=== PATIENT | female | born 1935 | race Caucasian/White ===

== ENCOUNTER 2017-06-02 13:06 | Emergency (ER) | payer MEDICARE ==
--- NOTE | 2017-06-02 15:27 | RAD ---
LEFT HIP TWO VIEWS: History: Left leg and hip pain. Comparison: None. FINDINGS: No fracture. No malalignment. Soft tissues are unremarkable. Left obturator ring appears to be intact . IMPRESSION: No acute fracture or malalignment. POS: OFF
--- NOTE | 2017-06-02 15:28 | RAD ---
LEFT KNEE FOUR VIEWS: History: Left hip and groin pain. Comparison: None. FINDINGS: There is medial chondral calcinosis. Mild quadriceps tendinosis. Mild vascular calcifications. IMPRESSION: No acute fracture or malalignment. POS: OFF
--- NOTE | 2017-06-02 15:30 | RAD ---
AP PELVIS: History: Pain. Stumbled, did not fall. Comparison: None. FINDINGS: No displaced fracture or malalignment of the hips. Obturator rings are intact. Pubic symphysis is int act. SI joints show mild degenerative disease. IMPRESSION: No displaced fracture or malalignment of the pelvis. POS: OFF
== END 2017-06-02 15:42 | disposition home or self-care (01) ==
LOC: ERS 13:06
DX: M54.32 Sciatica, left side (principal); M25.552 Pain in left hip; R10.2 Pelvic and perineal pain; E11.9 Type 2 diabetes mellitus without complications; I10 Essential (primary) hypertension; Z79.4 Long term (current) use of insulin; Z79.899 Other long term (current) drug therapy; Z79.82 Long term (current) use of aspirin; Z79.01 Long term (current) use of anticoagulants
CPT/HCPCS: 72170

== ENCOUNTER 2017-06-16 12:40 | Outpatient (CLI) | payer MEDICARE ==
--- NOTE | 2017-06-16 15:02 | CT ---
LUMBAR SPINE CT NONCONTRAST: HISTORY: Lumbar radiculopathy. FINDINGS: Multilevel osteophytosis is present, most pronounced anteriorly at the L2-3 level. No compression fr acture. No significant subluxation. There is right convexity curvature of the lumbar spine. Within the imaged retroperitoneum, there is vascular calcification. There is mild nonspecific fat strandin g about the retroperitoneum which does surround the superior mesenteric and inferior mesenteric arter ies. Findings could relate to sequelae from vasculopathy/vasculitis. Incidental note of colonic div erticulosis. L5-S1: There is a calcified disk bulge and mild osteophyte ridge effacing ventral thecal sac. There is mild right osseous neural foraminal narrowing due to osteophyte complex. There is mild osseous n arrowing of the left neural foramen as a result of lateral osteophyte formation. L4-5: Broad-based disk-osteophyte complex is present with moderate central canal stenosis. There is mild right and moderate left neural foraminal stenosis. At the lateral, extraspinal, left extraforaminal zone of the L4-5 level, there is a large peripherall y calcified density measuring 1.4 cm in diameter which does emanate from the adjacent, degenerative L 4-5 disk space, laterally on the left. This abuts and displaces the exiting left L4 nerve root. Fin ding is most consistent with partially calcified lateral disk extrusion. L3-4: There is mild narrowing of the central canal on the basis of disk-osteophyte complex. No high -grade foraminal stenosis. L2-3: Mild disk-osteophyte complex and disk calcification present. No significant compromise of chloé tral canal or neural foramina. L1-2: There is no significant central canal or foraminal stenosis. There is multilevel mild bilateral facet degenerative hypertrophy. IMPRESSION: 1. Findings consistent with a large left extraforaminal zone disk extrusion at the L4-5 level with d irect impingement and mass effect/displacement of the exiting left L4 nerve root. 2. Multilevel degenerative change as outlined above. POS: JOAN
== END 2017-06-16 12:41 | disposition home or self-care (01) ==
LOC: CT 12:40
PROVIDERS: ATTEND Orthopaedic Surgery
DX: M47.26 Other spondylosis with radiculopathy, lumbar region (principal)
CPT/HCPCS: 72131

== ENCOUNTER 2017-06-17 10:16 | Inpatient (IN) | payer MEDICARE ==
[2017-06-17] MEDS ORDERED: Ondansetron HCl/PF 4 MG/2 ML Vial ONE (10:55)
[2017-06-17 11:09] LABS: #Lymphocytes 1.1 thou/uL (1.20-3.40); #Monocytes 0.5 thou/uL (0.11-0.59); #Neutrophils 10.4 thou/uL (1.40-6.50); %Basophils 0.2 % (0.0-1.0); %Eosinophils 0.3 % (0.0-10.0); %Lymphocytes 9.4 % (21.0-51.0); %Neutrophils 86.2 % (42.0-75.0); Hemoglobin 16.7 g/dL (12.0-16.0); Mean Corpuscular HGB CONC 32.7 g/dL (32.0-36.0); Mean Corpuscular Hemoglobin 30.9 pg (27.0-31.0); Mean Corpuscular Volume 94.4 fl (81.0-99.0); Platelet Count 257 thou/uL (130-400); RBC Distribution Width 12.9 % (11.5-14.5); Red Blood Cell (RBC) Count 5.41 mill/uL (4.20-5.40); White Blood Cell (WBC) Count 12.1 thou/uL (4.8-10.8)
[2017-06-17 11:14] LABS: INR-International Normal Ratio 1.2; PTT 31.2 SEC (22.9-36.1); Prothrombin Time 15.3 SEC (12.0-14.7)
[2017-06-17 12:29] LABS: ALT (SGPT) 29 U/L (8-55); AST (SGOT) 27 U/L (5-34); Albumin 4.2 g/dL (3.4-4.8); Alkaline Phosphatase 125 U/L (40-150); Anion Gap 18 mmol/L (10-20); BUN (Urea Nitrogen) 44 mg/dL (9.8-20.1); Bilirubin, Total 1.5 mg/dL (0.2-1.2); Calc. Creatinine Clearance 0 mL/min (70-130); Calcium 11.6 mg/dL (7.8-10.44); Carbon Dioxide 27 mmol/L (23-31); Chloride 89 mmol/L (98-107); Estimated GFR-MDRD 19; Globulin 4.5 g/dL (2.4-3.5); Protein, Total 8.7 g/dL (6.0-8.3); Sodium 127 mmol/L (136-145)
[2017-06-17 12:50] LABS: Potassium 6.6 mmol/L (3.5-5.1)
[2017-06-17 12:56] LABS: Glucose 834 mg/dL (83-110)
[2017-06-17] MEDS ORDERED: Insulin Regular 300 UNITS/3 ML VIAL ONE (13:56)
[2017-06-17] MEDS ORDERED: Calcium Chloride 1 GM/10 ML Abboject SYRINGE ONE (14:06)
[2017-06-17] MEDS ORDERED: HumaLOG 300 UNITS/3 ML VIAL SC PRN (14:27)
[2017-06-17] MEDS ORDERED: Zolpidem Tartrate 5 MG TAB PO PRN (14:27)
[2017-06-17] MEDS ORDERED: Ondansetron HCl/PF 4 MG/2 ML Vial IVP PRN (14:27)
[2017-06-17] MEDS ORDERED: Dextrose 50% Abboject 50 ML SYRINGE SLOW IVP PRN (14:27)
[2017-06-17] MEDS ORDERED: Acetaminophen 325 MG TAB PO PRN (14:27)
[2017-06-17] MEDS ORDERED: Morphine 4 MG/ML Carpuject SLOW IVP PRN (14:27)
[2017-06-17] MEDS ORDERED: Dextrose 5% in Water 1,000 ML IV PRN (14:27)
--- NOTE | 2017-06-17 15:32 | HP ---
PRIMARY CARE PROVIDER: Chato Scales M.D. Patient referred to the [facility] by [facility] for hyperkalemia . HISTORY OF PRESENT ILLNESS: The patient has had severe left flank pain radiating to her left leg. S he was seen in the emergency room a couple of weeks ago diagnosed with sciatica. She was referred to Orthopedic Surgery who said that the pain did not come from her hip joint. She had a CT of her LS s pine yesterday that revealed a large left foraminal disk protrusion at L5 level with direct impingeme nt and mass effect displacement on exiting L4 nerve root plus other changes. The patient presented i n the emergency room today. She has been unable to eat, unable to get up, unable to sit up because o f the pain. During routine evaluation, she was found to have acute on chronic renal failure with hyp erkalemia of 6.6. She is being admitted to the hospital. Diagnoses; atrial fibrillation, diabetes m ellitus type 2 with chronic kidney disease stage 3, coronary artery disease post-PCI 5-10 years ago, pacemaker, hypertension and chronic anticoagulation with Coumadin. CURRENT MEDICATIONS: Lantus 40 units in a.m. and 30 units in the evening, NovoLog 25 units subcu bef ore meals twice a day, amiodarone 200 mg a day, Plavix 75 mg a day, metoprolol 25 mg a day, aspirin 8 1 mg a day, Zocor 40 mg a day, warfarin 2.5 mg a day, prednisone 20 mg once a day, Vicodin 5/500 one half to one tablet every 6 hours p.r.n. pain. ALLERGIES: CIPRO, PENICILLIN, and SULFA. PAST SURGICAL HISTORY: Hysterectomy and bilateral cataract surgery. FAMILY HISTORY: Both parents had coronary artery disease. Her father had diabetes. She has 3 sibli ngs with diabetes and coronary artery disease. SOCIAL HISTORY: . CODE STATUS: FULL CODE status. Daughter, Arlin. Next of kin at bedside. No tobacco, no alcohol. REVIEW OF SYSTEMS: GENERAL: She fell 2 days ago from pain and 2 weeks ago, it is questionable wheth er she blacked out. She does not complain of any dizziness, no headaches. EYES: No double vision, blurred vision, flashing lights. EAR, NOSE, AND THROAT: No ear pain or drainage. No nasal bleeding . No trouble swallowing. CARDIAC: No chest pain, orthopnea or paroxysmal nocturnal dyspnea. RESPI RATORY: No cough, wheezing or asthma. GASTROINTESTINAL: No nausea, vomiting, abdominal pain, diarr hea or constipation. GENITOURINARY: Stress incontinence, no hematuria. MUSCULOSKELETAL: Aforement ioned pain radiating down her left leg from her left flank aggravated by motion. NEUROLOGIC: She crockett d a small stroke in the past by history with no residual. PSYCHIATRIC: No anxiety or depression. S KIN: Bruises easily on a combination of Coumadin, Plavix and aspirin. HEME/LYMPH: No tender or swo llen lymph nodes in axilla, inguinal or cervical area. PHYSICAL EXAMINATION: GENERAL: She is an alert, cooperative lady in moderate to severe pain despite the fact she has had 4 mg of morphine recently. HEENT: Examination of her head, eyes, ear, nose, and throat reveal pupils equal, round with implants . Extraocular movements are intact. Sclerae are white. Tympanic membranes are clear. Nose clear. Oral mucous membranes are exceedingly dry. She is edentulous. The daughter says she does have dent ures, not currently in her mouth. NECK: No jugular venous distention, adenopathy or thyromegaly. CHEST: Clear to auscultation and percussion. HEART: Regular rate and rhythm. First and second heart sounds are clear. There are no appreciated murmurs or gallops. ABDOMEN: Soft, bowel sounds are normal. There is no hepatosplenomegaly, no mass, no rebound. EXTREMITIES: Reveal no cyanosis, clubbing or edema. PULSES: Carotid, radial, femoral, and dorsalis pedis pulses intact and symmetric. HEME/LYMPH: No tender or swollen lymph nodes in axilla, inguinal or cervical area. NEUROLOGIC: Cranial nerves II-XII are intact. Deep tendon reflexes at the arm and at knees are inta ct and symmetric. Toes are downgoing. She has a positive straight leg raising test on the left. SKIN: Marked decreased turgor on her forehead with tenting that lasted over 60 seconds. IMAGING DATA: EKG sinus rhythm, left anterior fascicular block, right bundle branch block with sugge stion of early peaked T waves, reviewed by me. Chest x-ray has been done. LABORATORY DATA: CBC: White count 12.1, hemoglobin 16.7, platelet count 257,000. INR 1.2. [employer] [employer]ge flaquito: Sodium 127. It was 139 on 05/11/2017; potassium 6.6, it was 4.3 on 05/11/2017; creatinine 2.3 9, it was 151 on 05/11/2017; BUN 44, it was 26 on 05/11/2017; bilirubin is elevated at 1.5, but other liver function tests are normal. Calcium was 11.6, hemoglobin A1c was 7.3 on 05/11/2017. Her blood sugar today is listed at 834. ADMITTING DIAGNOSES: 1. Hyperkalemia. 2. Acute on chronic renal failure. 3. Dehydration. 4. Diabetes mellitus, insulin-dependent with markedly elevated blood sugar. 5. Atrial fibrillation, paroxysmal. 6. Hypertension. 7. Coronary artery disease post-PCI in the past. 8. Anticoagulation, currently inadequately anticoagulated. 9. Lumbar radiculopathy with intractable pain. PLAN: 1. IV fluids at 125 normal saline. 2. Kayexalate 30 grams p.o. has been given. 3. Basic metabolic profile will be repeated in 4 hours. 4. Morphine sulfate 4 mg q.3 hours for pain. 5. Consult Dr. Crews whom she has an appointment with for lumbar radiculopathy. 6. Selected home medicines. 7. Patient will need frequent follow up basic metabolic profile, one will be ordered for tomorrow mo rning. 8. Her herbarium worker, Dr. Humphrey Perez will be consulted.
[2017-06-17 17:23] LABS: Anion Gap 19 mmol/L (10-20); BUN (Urea Nitrogen) 45 mg/dL (9.8-20.1); Calc. Creatinine Clearance 0 mL/min (70-130); Carbon Dioxide 26 mmol/L (23-31); Chloride 92 mmol/L (98-107); Estimated GFR-MDRD 19; Potassium 5.5 mmol/L (3.5-5.1); Sodium 131 mmol/L (136-145)
[2017-06-17 17:28] LABS: Calcium 12.9 mg/dL (7.8-10.44); Glucose 776 mg/dL (83-110)
[2017-06-17] MEDS: HumaLOG 300 UNITS/3 ML VIAL SC PRN ×3 (17:55→23:33)
[2017-06-17] MEDS: Morphine 5 MG/ML SYRINGE SLOW IVP PRN (19:57)
[2017-06-17 21:20] LABS: Glucose Accucheck Confirmation 728 mg/dl (83-110)
[2017-06-17] MEDS: Sodium Chloride 0.9% 1,000 ML IV SCH (23:29)
[2017-06-18] MEDS: HumaLOG 300 UNITS/3 ML VIAL SC PRN ×3 (03:34→12:43)
[2017-06-18] MEDS: Morphine 5 MG/ML SYRINGE SLOW IVP PRN ×2 (04:38→09:30)
[2017-06-18 05:15] LABS: Hemoglobin 14.6 g/dL (12.0-16.0); Mean Corpuscular HGB CONC 33.8 g/dL (32.0-36.0); Mean Corpuscular Hemoglobin 31.3 pg (27.0-31.0); Mean Corpuscular Volume 92.8 fl (81.0-99.0); Mean Platelet Volume 7.4 fL (7.4-10.4); Platelet Count 216 thou/uL (130-400); RBC Distribution Width 12.6 % (11.5-14.5); Red Blood Cell (RBC) Count 4.65 mill/uL (4.20-5.40); White Blood Cell (WBC) Count 13.6 thou/uL (4.8-10.8)
[2017-06-18 05:16] LABS: Band 6 % (5-11); Eosinophils 1 % (0-10); Lymphocytes 11 % (21-51); MDiff Complete? YES; Monocytes 1 % (0-10); Neutrophil 81 % (42-75); PLT Morphology Comment Appears Adequate
[2017-06-18] MEDS: Sodium Chloride 0.9% 1,000 ML IV SCH ×4 (05:59→22:39)
[2017-06-18 08:22] LABS: Base Excess-Venous 3.7 mmol/L (-30.0-30.0); Bicarbonate (HCO3v) 29.7 mmol/L (1.0-85.0); CO2 Tension (PvCO2) 47.6 mmHg (41.0-51.0); Calcium, Ionized 1.04 mmol/L (1.12-1.32); Hemoglobin - Calc 18.8 g/dL (12.0-18.0); O2 Tension (PvO2) 32.6 mmHg (35.0-45.0); T. Carbon Dioxide 31.2 mmol/L (1.0-85.0); pH (Venous) 7.403 (7.35-7.45); vO2 Saturation-calc 62.2 % (0.0-100.0)
[2017-06-18 08:27] LABS: Potassium Greater than 6.5 mmol/L (3.4-4.7)
[2017-06-18] MEDS ORDERED: INSULIN ASPART 25 UNIT SC SCH (09:00)
[2017-06-18] MEDS: INSULIN DETEMIR SC SCH (09:11)
[2017-06-18] MEDS: ADMIXTURE FEE SC SCH (09:11)
[2017-06-18] MEDS: Amiodarone 200 MG TAB PO SCH (09:29)
[2017-06-18] MEDS: Levothyroxine Sodium 25 MCG TAB PO SCH (09:30)
[2017-06-18] MEDS: Metoprolol Tartrate 25 MG TAB PO SCH (09:30)
[2017-06-18] MEDS: Calcium/Multivitamins W-Iron 1 TAB TAB PO SCH (09:30)
[2017-06-18] MEDS: Clopidogrel Bisulfate 75 MG TAB PO SCH (09:30)
[2017-06-18] MEDS: Warfarin Sodium 2.5 MG TAB PO SCH (09:46)
--- NOTE | 2017-06-18 10:04 | PDOC.PN ---
- Subjective Encounter Start Date: 06/18/17 Encounter Start Time: 08:10 crying during exam complaining of left lowerr back complaining immediately after waking her up. Was sleeping peacefully prior to waking her up. After leaving the room and coming back 5min later, patient was resting with her eyes close in no distress - Objective Vital Signs & Weight: Vital Signs (12 hours) Temp Pulse Resp BP BP Pulse Ox 06/18/17 08:00 97.9 F 103 H 18 166/95 H 95 06/18/17 07:58 97.0 F L 76 16 06/18/17 04:48 97.0 F L 76 16 125/49 L 95 06/18/17 00:10 98.0 F 80 20 138/98 H 96 Weight Weight 144 lb 4.8 oz I&O: 06/17/17 06/18/17 06/19/17 06:59 06:59 06:59 Intake Total 1888 Output Total 150 Balance 1738 Result Diagrams: 06/18/17 04:36 06/18/17 04:36 Additional Labs: Accuchecks 06/18/17 06/18/17 06/17/17 07:56 03:33 23:33 POC Glucose 274 H 213 H 508 H 06/17/17 06/17/17 06/17/17 20:42 16:57 16:55 POC Glucose Greater than 550 H* Greater than 550 H* Greater than 550 H* Phys Exam - Physical Examination mild to moderate distress when awake but no distress when eyes closed HEENT: PERRLA Neck: no nodes, no JVD, supple Respiratory: no wheezing, clear to auscultation bilateral Cardiovascular: irregular tachy Gastrointestinal: soft, non-tender Musculoskeletal: no edema, pulses present Deviation from normal: abnormal skin turgor Dx/Plan (1) Acute kidney failure Status: Acute (2) Hyperkalemia Code(s): E87.5 - HYPERKALEMIA Status: Acute (3) Atrial fibrillation Code(s): I48.91 - UNSPECIFIED ATRIAL FIBRILLATION Status: Acute (4) Diabetes Code(s): E11.9 - TYPE 2 DIABETES MELLITUS WITHOUT COMPLICATIONS Status: Acute (5) Dehydration Code(s): E86.0 - DEHYDRATION Status: Acute (6) Hyponatremia with extracellular fluid depletion Code(s): E87.1 - HYPO-OSMOLALITY AND HYPONATREMIA Status: Acute - Plan cont current plan of care * . continue IVF monitor K level in am monitor creatnine levels in am pending consultation from pending consult from nephro restarted home meds including metoprolol and blood thinners monitor sugars closely- better though
[2017-06-18 10:28] LABS: Bilirubin Negative (Negative); Blood, Urine Negative (Negative); Clarity CLEAR (Clear); Glucose, Urine (Dipstick) >=1000 mg/dL (Negative); Leukocyte Negative (Negative); Nitrite Negative (Negative); Protein, Urine (Dipstick) Trace mg/dL (Neg-Trace); Specific Gravity, Urine 1.025 (1.002-1.036); pH, Urine 5.5 (5.0-9.0)
[2017-06-18] MEDS: Cyclobenzaprine 10 MG TAB PO PRN ×2 (12:35→20:40)
[2017-06-18] MEDS: traMADol HCl 50 MG TAB PO PRN ×2 (12:35→18:34)
[2017-06-18 13:01] LABS: Potassium 4.2 mmol/L (3.5-5.1); Sodium 144 mmol/L (136-145)
[2017-06-18 13:02] LABS: Anion Gap 12 mmol/L (10-20); Carbon Dioxide 30 mmol/L (23-31); Chloride 106 mmol/L (98-107)
[2017-06-18 13:03] LABS: BUN (Urea Nitrogen) 48 mg/dL (9.8-20.1); Calc. Creatinine Clearance 25 mL/min (70-130)
[2017-06-18 13:04] LABS: Estimated GFR-MDRD 26
[2017-06-18 13:05] LABS: Glucose 275 mg/dL (83-110)
[2017-06-18 13:06] LABS: Calcium 11.2 mg/dL (7.8-10.44)
[2017-06-18] MEDS: Atorvastatin Calcium 20 MG TAB PO SCH (20:40)
[2017-06-18] MEDS ORDERED: HumaLOG 300 UNITS/3 ML VIAL SC SCH (21:00)
[2017-06-18] MEDS ORDERED: Simvastatin 40 MG TAB PO SCH (21:00)
--- NOTE | 2017-06-19 00:07 | CON ---
DATE OF CONSULTATION: 06/18/2017 HISTORY OF PRESENT ILLNESS: Ms. Bills is an 82-year-old female, who presents to [facility] [place] [facility] for low back pain, left leg pain, and hyperkalemia. She has severe left flank pain ra diating to the left leg for the past 3 weeks. Within the past week, the pain has gotten severe to th e point where her walking is limited due to pain. She saw Dr. Pereira, an orthopedic surgeon, at took images of the hip and knees. He had referred to Neurosurgery, and she currently has an appointment to see Dr. Crews on 06/23/2017. She is unable to ambulate at home, because of the pain, so her daug hter brought her to the emergency department for intractable low back pain and left leg pain. CT of the lumbar spine shows a large far lateral left foraminal disk protrusion at the L5 level with direct impingement of mass effect displacing the left L4 nerve root. The patient on exam seems to be mildl y demented, which is not her usual state of mind per her daughter. She was admitted to the hospital with atrial fibrillation; diabetes mellitus, type 2; chronic kidney disease, stage 3, coronary artery disease, post-PCI 5-10 years ago, pacemaker, hypertension, chronic anticoagulation with Coumadin and baby aspirin. Neurosurgery was consulted for the findings, because of the findings on CT scan. Her appetite has decreased greatly in the past week, because of pain, and she is not able to do her acti vities of daily living. CURRENT MEDICATIONS: 1. Lantus 40 mg in a.m. and 30 units in the evening. 2. NovoLog 25 units subcu before meals twice a day. 3. Amiodarone 200 mg a day. 5. Plavix 75 mg a day. 6. Metoprolol 25 mg a day. 7. Aspirin 81 mg a day. 8. Zocor 40 mg a day. 9. Warfarin 2.5 mg a day. 10. Prednisone 20 mg a day. 11. Vicodin 5-500 one half to one tablet q.6 hours p.r.n. for pain. ALLERGIES: CIPRO, PENICILLIN, SULFA. PAST SURGICAL HISTORY: Hysterectomy, bilateral cataract surgery. FAMILY HISTORY: Patient's parents had coronary artery disease. Father has diabetes. She has 3 sibl ings with diabetes and coronary artery disease. SOCIAL HISTORY: The patient is . CODE STATUS: Full. Daughter is, Arlin, next of kin at bedside, who works at [employer]. She has no tobacco or alcohol history. REVIEW OF SYSTEMS: The patient fell 2 days ago from pain and 2 weeks ago from the pain. She complai ns of dizziness. No headaches. Neurologically, she seems to be intact; however, her memory is quite foggy and she seems mildly demented on exam. Patient reports left leg pain and low back pain. All other review of systems is negative, unless stated in the above HPI. PHYSICAL EXAMINATION: CURRENT VITAL SIGNS: Temperature of 98.2, pulse 102, respirations 20, O2 sats 93% on room air, blood pressure is 119/67. HEENT: Normocephalic, atraumatic. Hearing intact. Moist mucous membranes. Trachea is midline. EYES: Pupils are equal and reactive to light. Extraocular muscles are intact. Sclerae is white, no nicteric. NECK: The patient has normal range of motion. No midline tenderness to the cervical spine. CARDIOVASCULAR: Patient has regular rate and rhythm. First and second heart sounds are clear. The patient has a pacemaker. EXTREMITIES: Patient has no cyanosis or clubbing in the upper or lower extremities bilaterally. Her strength sensation seems to be intact in the upper and lower extremities bilaterally. Her gait is l imited due to pain in the lower extremities. She has paresthesias in the left L4 dermatome on exam. PULSES: Carotid, radial, femoral, and dorsal pedis pulses are intact and symmetric. NEUROLOGIC: Cranial nerves II-XII are grossly intact. Her speech is fluent. She answers my questio ns hesitantly and seems somewhat mildly demented. IMAGING: CT of the lumbar spine at [facility] [employer]. ADMITTING DIAGNOSIS: Hyperkalemia; acute on chronic renal failure; dehydration; diabetes mellitus, i nsulin dependent and marked elevated blood sugar; atrial fibrillation; hypertension; coronary artery disease, post-PCI in the past; anticoagulation with Coumadin, warfarin, and aspirin; and lumbar radic ulopathy with intractable back pain. PLAN: I have reviewed the images with Dr. Land the CT of the lumbar spine. She has a left far lateral disk protrusion at L4-L5, which impinges the left L4 nerve root. At this time, we will not o ffer surgery until she is off of Coumadin, aspirin, and warfarin for at least 1 week. This puts her at higher risk of hematoma postoperatively. We will also consult Dr. Leal or Dr. Hall to see if they have anything to offer to help with her pain while she is in the hospital to make it to her appointment with Dr. Crews. If there are any further questions, please feel free to contact [facility] rosurgery.
[2017-06-19] MEDS ORDERED: HumaLOG 300 UNITS/3 ML VIAL SC PRN (01:02)
[2017-06-19] MEDS: traMADol HCl 50 MG TAB PO PRN ×3 (01:05→15:13)
[2017-06-19 04:57] LABS: #Eosinphils 0.1 thou/uL (0.0-0.7); #Lymphocytes 1.7 thou/uL (1.20-3.40); #Monocytes 0.5 thou/uL (0.11-0.59); #Neutrophils 6.2 thou/uL (1.40-6.50); %Basophils 0.4 % (0.0-1.0); %Eosinophils 1.1 % (0.0-10.0); %Lymphocytes 19.4 % (21.0-51.0); %Monocytes 6.1 % (0.0-10.0); Hemoglobin 13.9 g/dL (12.0-16.0); Mean Corpuscular HGB CONC 33.1 g/dL (32.0-36.0); Mean Corpuscular Hemoglobin 31.2 pg (27.0-31.0); Mean Corpuscular Volume 94.1 fl (81.0-99.0); Mean Platelet Volume 7.4 fL (7.4-10.4); Platelet Count 175 thou/uL (130-400); RBC Distribution Width 12.6 % (11.5-14.5); Red Blood Cell (RBC) Count 4.46 mill/uL (4.20-5.40); White Blood Cell (WBC) Count 8.5 thou/uL (4.8-10.8)
[2017-06-19] MEDS: Sodium Chloride 0.9% 1,000 ML IV SCH ×4 (05:06→22:44)
[2017-06-19 05:08] LABS: Anion Gap 11 mmol/L (10-20); BUN (Urea Nitrogen) 36 mg/dL (9.8-20.1); Calc. Creatinine Clearance 32 mL/min (70-130); Calcium 10.1 mg/dL (7.8-10.44); Carbon Dioxide 28 mmol/L (23-31); Chloride 105 mmol/L (98-107); Estimated GFR-MDRD 36; Glucose 267 mg/dL (83-110); Potassium 3.7 mmol/L (3.5-5.1); Sodium 140 mmol/L (136-145)
--- NOTE | 2017-06-19 07:44 | PRG ---
DATE OF SERVICE: 06/19/2017 SUBJECTIVE: Ms. Bills is an 82-year-old female, who I saw in her room this morning. She continues to have pain in the left leg. This morning, she has some delerium, likely related to narcotic pain medication with poor renal function. her daughter is answering questions for her at bedside. She has no new neurologic deficits on exam. She is unable to walk and ambulation is limited due to pain. I think she would benefit from stay at a correction facility and from the Physical Therapy Department. I also consulted Dr. Leal to see if the Pain Management team could give some relief to her during her stay here at the hospital in order to get to her appointment with Dr. Crews on 06/23/2017. In the meantime, we will continue to control pain and she is on Coumadin, warfarin and aspirin. She will need to be off of those for 7 days before any surgery would be considered. Vital signs overnight have been stable. If there are any further questions, please feel free to contact Neurosurgery. CORNELIA
--- NOTE | 2017-06-19 08:24 | PRG ---
DATE OF SERVICE: 06/19/2017 SUBJECTIVE: I saw Ms. Bills in her hospital room this morning. Her daughters were in her room with her. I reviewed the history with them, reviewed imaging and I agree with documentation of Miko kearns PA-C dated 06/18/2017. Briefly, Tawanna Bills is an 82-year-old woman. 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. She was doing relatively well until a week or two ago. S he began having some severe pain radiating down the left leg that progressed to weakness. She had on e fall. She was brought to our emergency department and CT examination of the lumbar spine showed a far lateral disk herniation at L3-L4 stretching the L4 nerve root on the left. She has a pacemaker; therefore, MR imaging was impossible. Ms. Bills is on Coumadin for atrial fibrillation and 81 mg of aspirin. Her last Coumadin dose was . This morning, Ms. Bills has some delirium from the analgesics, required to control her pa in. Usually, she is quite alert and conversant and takes care of herself, but since the pain medicin es have started she has been dependent. She has L4 radiculopathy including quadriceps weakness. I have recommended a microdiskectomy from far lateral approach at L4-L5 on the left side. INFORMED CONSENT: I discussed indications, risks, benefits, and alternatives as well as expected out comes from surgery. The risks, we discussed included, but were not limited to bleeding, infection, C SF leak, nerve damage, paralysis, incontinence, wheelchair dependence, cardiopulmonary complications of anesthesia, major blood vessel injury and . Her daughter has expressed understanding and wan ts to proceed. I would like to schedule surgery 1 week after the last dose of Coumadin. She is on 81 mg of aspirin and I prefer being off that for a week, but does not an absolute requirement in this case. Coumadin was yesterday, we can schedule the surgery for next Wednesday or the following Wednesday. We will try to m kayla arrangements to the office, but see if that can happen.
[2017-06-19] MEDS: INSULIN DETEMIR SC SCH (09:28)
[2017-06-19] MEDS: ADMIXTURE FEE SC SCH (09:28)
[2017-06-19] MEDS: Warfarin Sodium 2.5 MG TAB PO SCH (09:29)
[2017-06-19] MEDS: Amiodarone 200 MG TAB PO SCH (09:29)
[2017-06-19] MEDS: Metoprolol Tartrate 25 MG TAB PO SCH (09:29)
[2017-06-19] MEDS: Levothyroxine Sodium 25 MCG TAB PO SCH (09:29)
[2017-06-19] MEDS: Calcium/Multivitamins W-Iron 1 TAB TAB PO SCH (09:29)
[2017-06-19] MEDS: Clopidogrel Bisulfate 75 MG TAB PO SCH (09:29)
--- NOTE | 2017-06-19 09:43 | PDOC.PN ---
- Subjective Encounter Start Date: 06/19/17 Encounter Start Time: 08:10 pateint states she feels fine. Daughter states she is much better today then she was yesterday - Objective Vital Signs & Weight: Vital Signs (12 hours) Temp Pulse Resp BP BP Pulse Ox 06/19/17 07:23 98.5 F 97 20 112/67 93 L 06/19/17 04:16 98.2 F 99 18 109/58 L 16 L 06/19/17 00:15 98.2 F 101 H 18 119/57 L 98 Weight Admit Weight 144 lb 4.8 oz Weight 144 lb I&O: 06/18/17 06/19/17 06/20/17 06:59 06:59 06:59 Intake Total 1888 4219 Output Total 150 525 Balance 1738 3694 Result Diagrams: 06/19/17 04:14 06/19/17 04:14 Additional Labs: Accuchecks 06/19/17 06/19/17 06/19/17 03:52 00:37 00:23 POC Glucose 236 H 298 H 52 L* 06/18/17 06/18/17 06/18/17 19:53 16:12 12:02 POC Glucose 90 126 H 343 H Phys Exam - Physical Examination Constitutional: NAD HEENT: PERRLA, sclera anicteric Neck: no nodes, no JVD Respiratory: no wheezing, clear to auscultation bilateral Cardiovascular: no significant murmur, no rub Gastrointestinal: soft, non-tender, no distention Musculoskeletal: no edema, pulses present Psychiatric: normal affect Dx/Plan (1) Acute kidney failure Status: Acute (2) Hyperkalemia Code(s): E87.5 - HYPERKALEMIA Status: Acute (3) Atrial fibrillation Code(s): I48.91 - UNSPECIFIED ATRIAL FIBRILLATION Status: Acute (4) Diabetes Code(s): E11.9 - TYPE 2 DIABETES MELLITUS WITHOUT COMPLICATIONS Status: Acute (5) Dehydration Code(s): E86.0 - DEHYDRATION Status: Acute (6) Hyponatremia with extracellular fluid depletion Code(s): E87.1 - HYPO-OSMOLALITY AND HYPONATREMIA Status: Acute - Plan cont current plan of care, plan discussed w/ family, PT/OT, social problems specialist * . PT eval and treat CM consult for SNF To hold coumadin for one week prior to surgery will hold off on holding coumadin until day has been scheduled to risk keeping her off longer than she needs to in the setting of atrial fibrillation continue current DM regimen
[2017-06-19] MEDS: Insulin Regular 300 UNITS/3 ML VIAL SC SCH ×3 (12:22→18:33)
[2017-06-19] MEDS: HumaLOG 300 UNITS/3 ML VIAL SC PRN ×2 (12:24→17:58)
[2017-06-19 13:42] LABS: INR-International Normal Ratio 1.2; PTT 28.3 SEC (22.9-36.1); Prothrombin Time 15.5 SEC (12.0-14.7)
[2017-06-19 14:06] LABS: CKMB 2.8 ng/mL (0-6.6); Troponin I 0.051 ng/mL (< 0.028)
--- NOTE | 2017-06-19 15:21 | CT ---
CT BRAIN WITHOUT CONTRAST: Date: 06/19/17 HISTORY: Altered mental status, stroke alert. FINDINGS: Comparison made with exam of 06/10/15. Old lacunar infarcts in the bilateral cerebral hemispheres and right cerebellar hemisphere are stable . Ventricular size is stable and basilar cisterns are patent. No evidence of acute infarct, hemorrhag e, midline shift, or abnormal extra-axial fluid collections seen. The bony calvarium is intact. The v isualized paranasal sinuses are well aerated. IMPRESSION: No CT evidence of acute intracranial process. Results called over the telephone to Dr. Gabino Hernández at 1341 hours. CODE CR. POS: [facility]
[2017-06-19] MEDS ORDERED: Warfarin Sodium 2.5 MG TAB PO SCH (17:00)
[2017-06-19] MEDS ORDERED: Warfarin Sodium 3 MG TAB PO SCH (17:00)
[2017-06-19] MEDS: Atorvastatin Calcium 20 MG TAB PO SCH (21:02)
[2017-06-20] MEDS: traMADol HCl 50 MG TAB PO PRN ×3 (02:52→21:44)
[2017-06-20 05:06] LABS: #Eosinphils 0.2 thou/uL (0.0-0.7); #Lymphocytes 1.7 thou/uL (1.20-3.40); #Monocytes 0.5 thou/uL (0.11-0.59); #Neutrophils 4.8 thou/uL (1.40-6.50); %Basophils 0.5 % (0.0-1.0); %Eosinophils 2.8 % (0.0-10.0); %Lymphocytes 24.1 % (21.0-51.0); %Monocytes 6.6 % (0.0-10.0); %Neutrophils 66.1 % (42.0-75.0); Hemoglobin 12.8 g/dL (12.0-16.0); Mean Corpuscular HGB CONC 32.8 g/dL (32.0-36.0); Mean Corpuscular Hemoglobin 31.2 pg (27.0-31.0); Mean Corpuscular Volume 95.1 fl (81.0-99.0); Mean Platelet Volume 7.3 fL (7.4-10.4); Platelet Count 154 thou/uL (130-400); RBC Distribution Width 12.7 % (11.5-14.5); White Blood Cell (WBC) Count 7.2 thou/uL (4.8-10.8)
[2017-06-20 05:07] LABS: INR-International Normal Ratio 1.2; Prothrombin Time 15.9 SEC (12.0-14.7)
[2017-06-20 05:16] LABS: Anion Gap 6 mmol/L (10-20); BUN (Urea Nitrogen) 31 mg/dL (9.8-20.1); Calc. Creatinine Clearance 38 mL/min (70-130); Calcium 9.6 mg/dL (7.8-10.44); Carbon Dioxide 29 mmol/L (23-31); Chloride 110 mmol/L (98-107); Estimated GFR-MDRD 43; Glucose 101 mg/dL (83-110); Potassium 3.7 mmol/L (3.5-5.1); Sodium 141 mmol/L (136-145)
[2017-06-20] MEDS: Sodium Chloride 0.9% 1,000 ML IV SCH ×3 (06:43→21:45)
[2017-06-20] MEDS: Levothyroxine Sodium 25 MCG TAB PO SCH (07:30)
[2017-06-20] MEDS: Cyclobenzaprine 10 MG TAB PO PRN (07:31)
[2017-06-20] MEDS: Calcium/Multivitamins W-Iron 1 TAB TAB PO SCH (08:39)
[2017-06-20] MEDS: Metoprolol Tartrate 25 MG TAB PO SCH (08:39)
[2017-06-20] MEDS: Amiodarone 200 MG TAB PO SCH (08:40)
[2017-06-20] MEDS: Docusate 100 MG CAP PO SCH ×2 (10:09→21:45)
[2017-06-20] MEDS: Lidocaine 5% Patch TD SCH (10:09)
[2017-06-20] MEDS: Insulin Detemir 100 UNITS/ML 10 UNITS in Pre-Filled Syringe 1 EACH SC SCH ×2 (10:09→21:48)
--- NOTE | 2017-06-20 10:16 | PRG ---
DATE OF SERVICE: 06/20/2017 SUBJECTIVE: I saw Ms. Tawanna Bills in her hospital room this morning. We visited yesterday and were making plans for surgical intervention on her intervertebral disk herniation for this coming Wed or the following Wednesday. That will be at least a week since her last dose of Coumadin and we roger l make the surgery risk profile safer. She has relatively good pain control. I do not find any new deficits on examination. Ms. Bills had a rapid response evaluation yesterday for change in mental status, which we attributed to medication effect and she is much brighter this morning. We will still look forward to pain control while in the hospital hopefully with the assistance of bronson n management and then surgical intervention later in the week for her disk disease.
--- NOTE | 2017-06-20 11:08 | PDOC.PN ---
- Subjective Encounter Start Date: 06/20/17 Encounter Start Time: 08:30 Subjective: lethargic, responds to verbal stimuli -: feels weak, is eating poorly -: is unable to move much due to gen weakness - Objective MAR Reviewed: Yes Vital Signs & Weight: Vital Signs (12 hours) Temp Pulse Resp BP BP Pulse Ox 06/20/17 08:00 97.4 F L 68 16 164/61 H 92 L 06/20/17 04:50 98.0 F 66 20 136/55 L 92 L 06/20/17 00:10 97.7 F 67 20 145/74 H 93 L Weight Admit Weight 144 lb 4.8 oz Weight 144 lb I&O: 06/19/17 06/20/17 06/21/17 06:59 06:59 06:59 Intake Total 4219 3619 120 Output Total 525 Balance 3694 3619 120 Result Diagrams: 06/20/17 04:09 06/20/17 04:09 Additional Labs: Accuchecks 06/20/17 06/20/17 06/20/17 07:54 05:20 02:18 POC Glucose 110 106 78 06/20/17 06/19/17 06/19/17 01:41 20:18 17:08 POC Glucose 67 L 190 H 240 H 06/19/17 06/19/17 13:22 12:21 POC Glucose 313 H 330 H Phys Exam - Physical Examination HEENT: PERRLA, sclera anicteric Neck: no JVD, supple Respiratory: no wheezing, no rales Cardiovascular: RRR, no significant murmur Gastrointestinal: soft, non-tender, positive bowel sounds Musculoskeletal: pulses present, edema present Neurological: non-focal, moves all 4 limbs Dx/Plan (1) Physical deconditioning Code(s): R53.81 - OTHER MALAISE Status: Acute (2) BREE (acute kidney injury) Code(s): N17.9 - ACUTE KIDNEY FAILURE, UNSPECIFIED Status: Acute (3) Dyslipidemia Code(s): E78.5 - HYPERLIPIDEMIA, UNSPECIFIED Status: Chronic (4) Lumbar radiculopathy, acute Code(s): M54.16 - RADICULOPATHY, LUMBAR REGION Status: Acute (5) Atrial fibrillation Code(s): I48.91 - UNSPECIFIED ATRIAL FIBRILLATION Status: Chronic Qualifiers: Atrial fibrillation type: chronic Qualified Code(s): I48.2 - Chronic atrial fibrillation (6) Dehydration Code(s): E86.0 - DEHYDRATION Status: Resolved (7) Diabetes Code(s): E11.9 - TYPE 2 DIABETES MELLITUS WITHOUT COMPLICATIONS Status: Chronic Qualifiers: Diabetes mellitus type: type 2 Diabetes mellitus complication status: with unspecified complications Diabetes mellitus rat exterminator insulin use: with intermediate use Qualified Code(s): E11.8 - Type 2 diabetes mellitus with unspecified complications; Z79.4 - MCC (current) use of insulin; Z79.4 - MCC ( current) use of insulin; Z79.4 - MCC (current) use of insulin; Z79.4 - joint terminal attack controller (current) use of insulin - Plan gentle iv hydration, encourage glucerna/po intake -: PT to mobilize as tolerated -: restrict iv/po narcotics, spasmodic meds until she is more awake and -: -starts to participate with PT. D/w daughter at bedside -: No sleep aids, lidocaine patch, ultram is ok for severe pain * . DC asp, plavix and coumadin, as nsx is planning decompression/L.spine surgery in 1 week, even otherwise inr is 1.2. continue amiodarone, reduce levemir to 10u bid until she starts eating well. OOB to chair and ambulation with PT at the earliest to prevent further deconditioning Rehab eval? Review of Systems - Medications/Allergies Allergies/Adverse Reactions: Allergies Allergy/AdvReac Type Severity Reaction Status Date / Time ciprofloxacin [From Cipro] Allergy Severe ITCHING Verified 07/06/13 16:01 ciprofloxacin HCl Allergy Severe ITCHING Verified 06/17/17 20:01 [From Cipro] Penicillins Allergy Unknown Verified 06/17/17 20:01 sitagliptin phosphate AdvReac Stomach Verified 01/18/13 04:43 [From Januvia] Ache Medications: Current Medications Acetaminophen (Tylenol) 650 mg PO Q4H PRN PRN Reason: Headache/Fever or Pain Amiodarone HCl (Cordarone) 200 mg PO DAILY [facility] Last Admin: 06/20/17 08:40 Dose: 200 mg Dextrose/Water (Dextrose 50%) 25 gm SLOW IVP PRN PRN PRN Reason: Hypoglycemia Last Admin: 06/19/17 00:27 Dose: 25 gm Docusate Sodium (Colace) 100 mg PO BID [facility] Last Admin: 06/20/17 10:09 Dose: 100 mg Glucagon (Glucagon) 1 mg IM PRN PRN PRN Reason: Hypoglycemia Dextrose/Water (D5w) 1,000 mls @ 0 mls/hr IV .Q0M PRN; As Directed PRN Reason: Hypoglycemia Insulin Detemir 10 units/ (Miscellaneous Medication) 0.1 mls @ 0 mls/hr SC BID [facility] Last Admin: 06/20/17 10:09 Dose: 0.1 mls Sodium Chloride (Normal Saline 0.9%) 1,000 mls @ 50 mls/hr IV .Q20H [facility] Last Admin: 06/20/17 09:38 Dose: Not Given Insulin Human Lispro (Humalog) 0 units SC .AGGRESSIVE SLIDING PRN; Protocol PRN Reason: AGGRESSIVE SLIDING SCALE Last Admin: 06/19/17 17:58 Dose: 6 units Insulin Human Lispro (Humalog) 0 units SC .BEDTIME SLIDING SC PRN PRN Reason: Bedtime Correctional Scale Iron/Minerals/Multivitamins (Fosfree) 1 tab PO DAILY [facility] Last Admin: 06/20/17 08:39 Dose: 1 tab Levothyroxine Sodium (Synthroid) 25 mcg PO DAILY [facility] Last Admin: 06/20/17 07:30 Dose: 25 mcg Lidocaine (Lidoderm 5% Patch) 1 patch TD DAILY [facility] Last Admin: 06/20/17 10:09 Dose: 1 patch Metoprolol Tartrate (Lopressor) 25 mg PO DAILY [facility] Last Admin: 06/20/17 08:39 Dose: 25 mg Remove Lidocaine Patch 12 Hrs After Placement 0 each FS 2100 [facility] Ondansetron HCl (Zofran) 4 mg IVP Q6H PRN PRN Reason: Nausea/Vomiting Sodium Chloride (Flush - Normal Saline) 10 ml IVF Q12HR [facility] Last Admin: 06/20/17 09:38 Dose: Not Given Sodium Chloride (Flush - Normal Saline) 10 ml IVF PRN PRN PRN Reason: Saline Flush Tramadol HCl (Ultram) 50 mg PO Q6H PRN PRN Reason: Moderate Pain (4-6) Last Admin: 06/20/17 10:11 Dose: 50 mg
--- NOTE | 2017-06-20 11:11 | PRG ---
DATE OF SERVICE: 06/20/2017 HISTORY: Ms. Bills is an 82-year-old female who I saw in her room this morning. She has a large le ft lateral disk bulge compressing at the L4 nerve root. This morning, her pain is approximately 7/10 . She had episodes of delirium yesterday, which are likely caused by the narcotics in conjunction wi th her renal status being declined. This morning, she is able to answer my questions appropriately a nd her cognitive status from yesterday has improved. Dr. Land yesterday offered a laminectomy w ith far lateral L4 decompression of the L4 root nerve microdiskectomy. She will need to be off of as pirin and Coumadin for 7 days prior to surgery. It looks as if she did receive a Coumadin yesterday at approximately 5:00 p.m. in the afternoon. Yesterday, she had a CT of the brain that showed no cole dence of acute intracranial process. A code was called yesterday for possible stroke alert, which sh owed at the CT scan of the brain. Our plan is to continue to do pain management, Dr. Hall and Melina Leal may step in today or Wednesday and help relieve some of the pain in the low back and left leg. Once again, she needs to be off of anticoagulants for 7 days before considering surgery. If t here are any further questions, please feel free to contact Neurosurgery.
[2017-06-20] MEDS: HumaLOG 300 UNITS/3 ML VIAL SC PRN (17:58)
[2017-06-20] MEDS: REMOVE LIDOCAINE FS SCH (21:54)
[2017-06-21 05:08] LABS: Platelet Count 130 thou/uL (130-400)
[2017-06-21] MEDS: traMADol HCl 50 MG TAB PO PRN ×2 (05:14→13:12)
[2017-06-21 05:17] LABS: INR-International Normal Ratio 1.5
[2017-06-21] MEDS ORDERED: Levothyroxine Sodium 25 MCG TAB PO SCH (07:30)
--- NOTE | 2017-06-21 08:11 | PRG ---
DATE OF SERVICE: 06/21/2017 Ms. Bills is still in the hospital. Her pain is not well controlled. She only got out of bed once yesterday with physical therapy. Vital signs overnight have been stable. I do not see any fevers re corded. Her blood pressure has been up due to pain. On examination Ms. Bills is still not back to her baseline. The pain medication has made her a bit delirious, but now she is conversing more than she has in the past. The pain is still rather severe. All antiplatelet agents and anticoagulants crockett ve been stopped. We are planning to operate on Ms. Bills for her far lateral disk herniation 1 week after the last do se of Coumadin. I will discuss with Dr. Crews on whose schedule she will be placed for surgical int ervention. The intervention will take place either Wednesday or Wednesday depending on scheduling. In the meantime, I think Ms. Bills needs sequential compression devices on her legs and an ultrasoun d to rule out DVT.
[2017-06-21] MEDS: Insulin Detemir 100 UNITS/ML 10 UNITS in Pre-Filled Syringe 1 EACH SC SCH ×2 (08:59→22:37)
[2017-06-21] MEDS: Senokot 8.6 MG TAB PO SCH (09:00)
[2017-06-21] MEDS: Calcium/Multivitamins W-Iron 1 TAB TAB PO SCH (09:00)
[2017-06-21] MEDS: Docusate 100 MG CAP PO SCH ×2 (09:00→22:36)
[2017-06-21] MEDS: Amiodarone 200 MG TAB PO SCH (09:00)
[2017-06-21] MEDS: Lidocaine 5% Patch TD SCH (09:00)
[2017-06-21] MEDS: Metoprolol Tartrate 25 MG TAB PO SCH ×2 (09:00→22:37)
--- NOTE | 2017-06-21 10:31 | PDOC.PN ---
- Subjective Encounter Start Date: 06/21/17 Encounter Start Time: 09:45 Subjective: is more awake this am, no sob -: is eating/drinking better -: pain is better on lidocaine tts and ultram - Objective MAR Reviewed: Yes Vital Signs & Weight: Vital Signs (12 hours) Temp Pulse Resp BP BP Pulse Ox 06/21/17 07:51 98.3 F 67 16 181/89 H 96 06/21/17 03:59 98.6 F 65 24 H 143/56 H 95 06/21/17 00:00 98.0 F 68 20 161/91 H 95 Weight Admit Weight 144 lb 4.8 oz Weight 144 lb I&O: 06/20/17 06/21/17 06/22/17 06:59 06:59 06:59 Intake Total 3619 2901 120 Output Total 275 Balance 3619 2626 120 Result Diagrams: 06/21/17 04:55 06/20/17 04:09 Additional Labs: Accuchecks 06/21/17 06/21/17 06/20/17 04:21 00:33 20:20 POC Glucose 173 H 246 H 278 H 06/20/17 06/20/17 06/19/17 16:20 12:25 00:14 POC Glucose 267 H 231 H 51 L* Phys Exam - Physical Examination HEENT: PERRLA, moist MMs Neck: no JVD, supple Respiratory: no wheezing, no rales Cardiovascular: RRR, no significant murmur Gastrointestinal: soft, non-tender, positive bowel sounds Musculoskeletal: no edema, pulses present Neurological: non-focal, moves all 4 limbs Psychiatric: A&O x 3 Dx/Plan (1) Physical deconditioning Code(s): R53.81 - OTHER MALAISE Status: Acute (2) BREE (acute kidney injury) Code(s): N17.9 - ACUTE KIDNEY FAILURE, UNSPECIFIED Status: Acute Comment: resolving (3) Dyslipidemia Code(s): E78.5 - HYPERLIPIDEMIA, UNSPECIFIED Status: Chronic (4) Lumbar radiculopathy, acute Code(s): M54.16 - RADICULOPATHY, LUMBAR REGION Status: Acute (5) Atrial fibrillation Code(s): I48.91 - UNSPECIFIED ATRIAL FIBRILLATION Status: Chronic Qualifiers: Atrial fibrillation type: chronic Qualified Code(s): I48.2 - Chronic atrial fibrillation (6) Dehydration Code(s): E86.0 - DEHYDRATION Status: Resolved (7) Diabetes Code(s): E11.9 - TYPE 2 DIABETES MELLITUS WITHOUT COMPLICATIONS Status: Chronic Qualifiers: Diabetes mellitus type: type 2 Diabetes mellitus complication status: with unspecified complications Diabetes mellitus terminologist insulin use: with terminologist use Qualified Code(s): E11.8 - Type 2 diabetes mellitus with unspecified complications; Z79.4 - medical terminologist (current) use of insulin; Z79.4 - retirement ( current) use of insulin; Z79.4 - retirement (current) use of insulin; Z79.4 - retirement (current) use of insulin - Plan PT to mobilize today, is more awake and alert today -: will need swing/rehab prior to surgery, has deconditioning -: encourage po intake -: is on amiodarone, lopressor, levemir low dose -: ultram, lidocaine tts. D/w children and pt at bedside * . Review of Systems - Medications/Allergies Allergies/Adverse Reactions: Allergies Allergy/AdvReac Type Severity Reaction Status Date / Time ciprofloxacin [From Cipro] Allergy Severe ITCHING Verified 07/06/13 16:01 ciprofloxacin HCl Allergy Severe ITCHING Verified 06/17/17 20:01 [From Cipro] Penicillins Allergy Unknown Verified 06/17/17 20:01 sitagliptin phosphate AdvReac Stomach Verified 01/18/13 04:43 [From Januvia] Ache Medications: Current Medications Acetaminophen (Tylenol) 650 mg PO Q4H PRN PRN Reason: Headache/Fever or Pain Amiodarone HCl (Cordarone) 200 mg PO DAILY [facility] Last Admin: 06/21/17 09:00 Dose: 200 mg Dextrose/Water (Dextrose 50%) 25 gm SLOW IVP PRN PRN PRN Reason: Hypoglycemia Last Admin: 06/19/17 00:27 Dose: 25 gm Docusate Sodium (Colace) 100 mg PO BID [facility] Last Admin: 06/21/17 09:00 Dose: 100 mg Enoxaparin Sodium (Lovenox) 40 mg SC 2100 [facility] Glucagon (Glucagon) 1 mg IM PRN PRN PRN Reason: Hypoglycemia Dextrose/Water (D5w) 1,000 mls @ 0 mls/hr IV .Q0M PRN; As Directed PRN Reason: Hypoglycemia Insulin Detemir 10 units/ (Miscellaneous Medication) 0.1 mls @ 0 mls/hr SC BID [facility] Last Admin: 06/21/17 08:59 Dose: 0.1 mls Insulin Human Lispro (Humalog) 0 units SC .AGGRESSIVE SLIDING PRN; Protocol PRN Reason: AGGRESSIVE SLIDING SCALE Last Admin: 06/20/17 17:58 Dose: 4 units Insulin Human Lispro (Humalog) 0 units SC .BEDTIME SLIDING SC PRN PRN Reason: Bedtime Correctional Scale Last Admin: 06/21/17 00:54 Dose: 2 unit Iron/Minerals/Multivitamins (Fosfree) 1 tab PO DAILY [facility] Last Admin: 06/21/17 09:00 Dose: 1 tab Levothyroxine Sodium (Synthroid) 25 mcg PO 0600 [facility] Lidocaine (Lidoderm 5% Patch) 1 patch TD DAILY [facility] Last Admin: 06/21/17 09:00 Dose: 1 patch Metoprolol Tartrate (Lopressor) 25 mg PO DAILY [facility] Last Admin: 06/21/17 09:00 Dose: 25 mg Remove Lidocaine Patch 12 Hrs After Placement 0 each FS 2100 [facility] Last Admin: 06/20/17 21:54 Dose: Not Given Ondansetron HCl (Zofran) 4 mg IVP Q6H PRN PRN Reason: Nausea/Vomiting Senna (Senokot) 1 tab PO DAILY [facility] Last Admin: 06/21/17 09:00 Dose: 1 tab Sodium Chloride (Flush - Normal Saline) 10 ml IVF Q12HR [facility] Last Admin: 06/21/17 09:00 Dose: Not Given Sodium Chloride (Flush - Normal Saline) 10 ml IVF PRN PRN PRN Reason: Saline Flush Tramadol HCl (Ultram) 50 mg PO Q6H PRN PRN Reason: Moderate Pain (4-6) Last Admin: 06/21/17 05:14 Dose: 50 mg
[2017-06-21] MEDS: HumaLOG 300 UNITS/3 ML VIAL SC PRN (11:37)
--- NOTE | 2017-06-21 14:43 | ULT ---
ULTRASOUND VENOUS DOPPLER BILATERAL LOWER EXTREMITY: Date; 06/21/17 HISTORY: Evaluate for deep venous thrombosis. COMPARISON: None. TECHNIQUE: Real-time Atwood scale, color Doppler, and spectral analysis of the bilateral lower extremity venous sy stems performed with linear array transducer. The common femoral, femoral, proximal portion of greate r saphenous and deep femoral veins, as well as popliteal and posterior tibial veins were interrogated . FINDINGS: Normal flow, augmentation, and compression. No deep venous thrombosis. Mild lower extremity edema. IMPRESSION: No deep venous thrombosis. POS: JOAN
[2017-06-21 15:21] LABS: Albumin 3.5 g/dL (2.9-4.4); Alpha 1 0.2 g/dL (0.0-0.4); Beta 0.8 g/dL (0.7-1.3); Gamma 1.5 g/dL (0.4-1.8); Globulin, Total 3.5 g/dL (2.2-3.9); M-Spike Not Observed g/dL (Not Observed)
[2017-06-21] MEDS ORDERED: cloNIDine 0.1 MG TAB PO PRN (16:23)
[2017-06-21] MEDS ORDERED: Enoxaparin Sodium 40 MG/0.4 ML SYRINGE SC SCH (21:00)
[2017-06-21] MEDS: REMOVE LIDOCAINE FS SCH (21:05)
[2017-06-22] MEDS: traMADol HCl 50 MG TAB PO PRN ×2 (01:25→13:04)
[2017-06-22 05:21] VITALS: BMI 24.5
[2017-06-22] MEDS ORDERED: Levothyroxine Sodium 25 MCG TAB PO SCH (06:00)
--- NOTE | 2017-06-22 07:44 | PRG ---
DATE OF SERVICE: 06/22/2017 I entered Ms. Bills's room this morning. She has been in a lot of pain in the hospital, but she is resting so comfortably this morning and she is asleep and I did not have the heart to wake her up and attempt to examine her or talk to her. I am going to make arrangements for her surgery to happen o n Wednesday, Wednesday evening or Wednesday depending on scheduling. Dr. Crews is going to have me take car e of her and we will look at scheduling over the next couple of days considering when the surgery can be done safely.
[2017-06-22 08:47] VITALS: TEMP 98.7
[2017-06-22] MEDS: Amiodarone 200 MG TAB PO SCH (09:34)
[2017-06-22] MEDS: Metoprolol Tartrate 25 MG TAB PO SCH (09:35)
[2017-06-22] MEDS: Calcium/Multivitamins W-Iron 1 TAB TAB PO SCH (09:35)
[2017-06-22] MEDS: Insulin Detemir 100 UNITS/ML 10 UNITS in Pre-Filled Syringe 1 EACH SC SCH (09:36)
[2017-06-22] MEDS: Docusate 100 MG CAP PO SCH (09:36)
[2017-06-22] MEDS: Lidocaine 5% Patch TD SCH (09:37)
[2017-06-22] MEDS: Senokot 8.6 MG TAB PO SCH (09:38)
--- NOTE | 2017-06-22 10:58 | PDOC.PN ---
- Subjective Encounter Start Date: 06/22/17 Encounter Start Time: 09:00 Subjective: no sob, feels better -: has amb minimally in the room yesterday - Objective MAR Reviewed: Yes Vital Signs & Weight: Vital Signs (12 hours) Temp Pulse Resp BP Pulse Ox 06/22/17 08:20 98.7 F 62 18 155/69 H 94 L 06/22/17 04:30 98.2 F 101 H 18 133/78 92 L Weight Admit Weight 144 lb 4.8 oz Weight 143 lb 11.862 oz I&O: 06/21/17 06/22/17 06/23/17 06:59 06:59 06:59 Intake Total 2901 1806 Output Total 275 Balance 2626 1806 Result Diagrams: 06/21/17 04:55 06/20/17 04:09 Additional Labs: Accuchecks 06/22/17 06/21/17 06/21/17 05:08 21:28 17:29 POC Glucose 145 H 227 H 202 H 06/21/17 11:09 POC Glucose 302 H Phys Exam - Physical Examination HEENT: PERRLA, moist MMs Neck: no JVD, supple Respiratory: no wheezing, no rales Cardiovascular: RRR, no significant murmur Gastrointestinal: soft, non-tender, positive bowel sounds Musculoskeletal: no edema, pulses present Neurological: non-focal, moves all 4 limbs Psychiatric: A&O x 3 Dx/Plan (1) Physical deconditioning Code(s): R53.81 - OTHER MALAISE Status: Acute (2) BREE (acute kidney injury) Code(s): N17.9 - ACUTE KIDNEY FAILURE, UNSPECIFIED Status: Acute Comment: resolving (3) Dyslipidemia Code(s): E78.5 - HYPERLIPIDEMIA, UNSPECIFIED Status: Chronic (4) Lumbar radiculopathy, acute Code(s): M54.16 - RADICULOPATHY, LUMBAR REGION Status: Acute (5) Atrial fibrillation Code(s): I48.91 - UNSPECIFIED ATRIAL FIBRILLATION Status: Chronic Qualifiers: Atrial fibrillation type: chronic Qualified Code(s): I48.2 - Chronic atrial fibrillation (6) Dehydration Code(s): E86.0 - DEHYDRATION Status: Resolved (7) Diabetes Code(s): E11.9 - TYPE 2 DIABETES MELLITUS WITHOUT COMPLICATIONS Status: Chronic Qualifiers: Diabetes mellitus type: type 2 Diabetes mellitus complication status: with unspecified complications Diabetes mellitus terminal carman insulin use: with care home use Qualified Code(s): E11.8 - Type 2 diabetes mellitus with unspecified complications; Z79.4 - superintendent terminal (current) use of insulin; Z79.4 - FDC ( current) use of insulin; Z79.4 - superintendent terminal (current) use of insulin; Z79.4 - FDC (current) use of insulin - Plan hemostable -: dc pt to [facility] -: to f/u with for lumbar surgery as adv -: dm is labile -: continue current pain mgmt with lidocaine tts, ultram and heating pad prn * . Review of Systems - Medications/Allergies Allergies/Adverse Reactions: Allergies Allergy/AdvReac Type Severity Reaction Status Date / Time ciprofloxacin [From Cipro] Allergy Severe ITCHING Verified 07/06/13 16:01 ciprofloxacin HCl Allergy Severe ITCHING Verified 06/17/17 20:01 [From Cipro] Penicillins Allergy Unknown Verified 06/17/17 20:01 sitagliptin phosphate AdvReac Stomach Verified 01/18/13 04:43 [From Januvia] Ache Medications: Current Medications Acetaminophen (Tylenol) 650 mg PO Q4H PRN PRN Reason: Headache/Fever or Pain Amiodarone HCl (Cordarone) 200 mg PO DAILY [facility] Last Admin: 06/22/17 09:34 Dose: 200 mg Clonidine (Catapres) 0.1 mg PO Q4H PRN PRN Reason: sbp>180 Dextrose/Water (Dextrose 50%) 25 gm SLOW IVP PRN PRN PRN Reason: Hypoglycemia Last Admin: 06/19/17 00:27 Dose: 25 gm Docusate Sodium (Colace) 100 mg PO BID [facility] Last Admin: 06/22/17 09:36 Dose: 100 mg Enoxaparin Sodium (Lovenox) 40 mg SC 2100 [facility] Last Admin: 06/21/17 22:37 Dose: 40 mg Glucagon (Glucagon) 1 mg IM PRN PRN PRN Reason: Hypoglycemia Dextrose/Water (D5w) 1,000 mls @ 0 mls/hr IV .Q0M PRN; As Directed PRN Reason: Hypoglycemia Insulin Detemir 10 units/ (Miscellaneous Medication) 0.1 mls @ 0 mls/hr SC BID [facility] Last Admin: 06/22/17 09:36 Dose: 0.1 mls Insulin Human Lispro (Humalog) 0 units SC .AGGRESSIVE SLIDING PRN; Protocol PRN Reason: AGGRESSIVE SLIDING SCALE Last Admin: 06/21/17 11:37 Dose: 11 units Insulin Human Lispro (Humalog) 0 units SC .BEDTIME SLIDING SC PRN PRN Reason: Bedtime Correctional Scale Last Admin: 06/21/17 00:54 Dose: 2 unit Iron/Minerals/Multivitamins (Fosfree) 1 tab PO DAILY [facility] Last Admin: 06/22/17 09:35 Dose: 1 tab Levothyroxine Sodium (Synthroid) 25 mcg PO 0600 [facility] Last Admin: 06/22/17 07:21 Dose: 25 mcg Lidocaine (Lidoderm 5% Patch) 1 patch TD DAILY [facility] Last Admin: 06/22/17 09:37 Dose: 1 patch Metoprolol Tartrate (Lopressor) 25 mg PO BID [facility] Last Admin: 06/22/17 09:35 Dose: 25 mg Remove Lidocaine Patch 12 Hrs After Placement 0 each FS 2100 [facility] Last Admin: 06/21/17 21:05 Dose: Not Given Ondansetron HCl (Zofran) 4 mg IVP Q6H PRN PRN Reason: Nausea/Vomiting Senna (Senokot) 1 tab PO DAILY [facility] Last Admin: 06/22/17 09:38 Dose: Not Given Sodium Chloride (Flush - Normal Saline) 10 ml IVF Q12HR [facility] Last Admin: 06/22/17 09:38 Dose: 10 ml Sodium Chloride (Flush - Normal Saline) 10 ml IVF PRN PRN PRN Reason: Saline Flush Tramadol HCl (Ultram) 50 mg PO Q6H PRN PRN Reason: Moderate Pain (4-6) Last Admin: 06/22/17 01:25 Dose: 50 mg
[2017-06-22 13:05] VITALS: BP 189/74
--- NOTE | 2017-06-22 13:21 | CON ---
DATE OF CONSULTATION: 06/22/2017 HISTORY OF PRESENT ILLNESS: Ms. Bills is a pleasant 82-year-old female complaining of pain over the low back radiating to the left buttock and lateral left thigh. Pain is presently 2/10, but increases to 7-8/10 at times. The pain is described as a "burning and shooting". Pain increases with movement in bed, sitting up, standing, walking and decreases with lying down and position changes. The pain has gradually increased over the past 3 weeks. There was no specific triggering event, but family does note she was moving heavy plants in pots around the time of the onset of pain. Ms. Bills lives independently at home. Her pain has increased to the point that she could no longer care for herself and complete ADLs independently. A CT of the L-spine per Dr. Land' s notes showed a L3-L4 disk herniation with left L4 nerve root involvement. Ms. Bills has been intolerant to pain meds noting altered mental status with previous doses of hydrocodone and morphine. Currently, tramadol 50 mg 1 typically twice a day, it is keeping her pain at rest manageable. Ms. Bills is on Coumadin, addressing chronic atrial fibrillation. She has neurosurgical intervention pending later this week when her anticoagulants have been held for 7 days. Ms. Bills denies changes in her bowel or bladder function, no saddle anesthesia. She does report at least one fall attributed to weakness and pain in the left leg. MEDICATIONS: Include Lantus insulin 40 units subcu in the a.m., 30 units subcu in the p.m., NovoLog insulin 25 units subcu before meals twice a day, amiodarone 200 mg p.o. daily, Plavix 75 mg p.o. daily - currently she is holding this, Zocor 40 mg p.o. daily, Coumadin 2.5 mg p.o. daily - currently this is being held as well, prednisone 20 mg p.o. daily. ALLERGIES: She has allergies to CIPRO, PENICILLIN, and SULFA. PAST MEDICAL HISTORY: Atrial fibrillation with chronic anticoagulation, type 2 diabetes, chronic renal failure, coronary artery disease with history of pacemaker, hypertension. PAST SURGICAL HISTORY: Includes a hysterectomy and bilateral cataract surgeries. FAMILY HISTORY: Both parents with history of coronary artery disease. Her father with a history of diabetes. Siblings x3 with coronary artery disease and diabetes. SOCIAL HISTORY: Ms. Bills is a . She lives at home independently. Her daughter lives and works locally. Ms. Bills has no history of tobacco abuse. She denies alcohol and illicit drug use. REVIEW OF SYSTEMS: Negative other than above. PHYSICAL EXAMINATION: HEENT: PERRL/EOMI. Mucous membranes are moist. NECK: Supple. There is no JVD, no midline C-spine or paraspinal muscle tenderness. CARDIOVASCULAR: Regular rate and rhythm. S1, S2 present. Pacer is noted. RESPIRATORY: Respirations are equal and unlabored, CTA bilateral. ABDOMEN: Soft and nontender. Bowel sounds positive in all 4 quadrants. BACK: There is no midline tenderness. There is some reproducible tenderness over the lower lumbar paraspinal muscles bilaterally. Range of motion of the L- spine produces some low back pain. Straight leg raising is positive on the left. NEUROLOGIC: Strength is intact in the upper and lower extremities. No lower extremity weakness was noted on exam today. Reflexes were absent at the knees and ankles bilaterally. There was no clonus. ASSESSMENT: L3-L4 disk herniation with left L4 nerve root involvement and radiculopathy. ASSESSMENT AND PLAN: Ms. Bills's pain is manageable at rest at present with the current pain medication regimen. She reports altered mental status with stronger pain medications. We will try adding Neurontin 300 mg 1 p.o. at bedtime to address the radicular symptoms. Plan to titrate this as needed if she is able to tolerates this medication. Ms. Bills plans to proceed with neurosurgical intervention later this week. She is not a candidate for epidural steroid injections at present secondary to chronic anticoagulant use. Please call us for any pain management needs/concerns. CORNELIA
--- NOTE | 2017-06-22 15:16 | DIS ---
DATE OF ADMISSION: 06/17/2017 DATE OF DISCHARGE: 06/22/2017 [address]CHAR[address] DISPOSITION: [facility]. PRIMARY DISCHARGE DIAGNOSES: Severe deconditioning; acute kidney injury with dehydration, resolved; lumbar radiculopathy; neurosurgery's plan for either this Wednesday or Wednesday; chronic atrial fibrillati on; diabetes mellitus type 2 and dyslipidemia. PROCEDURES DONE DURING HOSPITALIZATION: CT brain without contrast done showed no acute intracranial process. Ultrasound venous Doppler of lower extremities done showed no evidence of DVT. Lumbar spin e CAT scan done on 06/16/2017 showed findings consistent with large left extraforaminal zone disk ext rusion at the L4-5 level with direct impingement and mass effect/displacement of the exiting left L4 nerve root. There were also multilevel degenerative changes seen. Discharge hemoglobin and hematocr it 13 and 38, platelet count 130. INR on 06/21/2017 was 1.5. BUN and creatinine was 31 and 1.2 on 0 06/20/2017. On arrival, patient had potassium of 6.6, sodium of 127, BUN of 44, creatinine 2.39, seru m glucose of 834 on of this month. DISCHARGE MEDICATIONS: Amiodarone 200 mg p.o. daily, Colace 100 mg p.o. twice daily, Lovenox 40 mg s ubcu daily for DVT prophylaxis. Please hold this prior to the day of Neurosurgery that is planned ei ther, that is either this Wednesday or Wednesday to confirm with Dr. Land. Neurontin 300 mg p.o. at b edtime, Levemir 10 units subcutaneously twice daily, levothyroxine 25 mcg p.o. daily, lidocaine trans dermal patch once daily, Ultram 50 mg p.o. q.6 hourly p.r.n., Zocor 40 mg p.o. at bedtime, Senokot 1 tab daily, Lopressor 25 mg p.o. twice daily. ALLERGIES: CIPROFLOXACIN, PENICILLIN, JANUVIA. DISCHARGE PLAN: Patient to follow up with primary care physician in 1 week. She also needs to follo w up with Dr. Land for intervention for her disk protrusion at L4-5 either this Wednesday or Wednesday . BRIEF COURSE DURING HOSPITALIZATION: Patient initially got admitted on for complaints of severe left flank pain radiating to her left leg. She has had a CT of the lumbar spine done which showed l arge disk protrusion with impingement of L4 exiting nerve. Also, patient had acute kidney injury wit h hyperkalemia on arrival with uncontrolled diabetes as well. Patient was aggressively hydrated with Kayexalate and close monitoring of renal function. She has had consultation with Dr. Land for lumbar radiculopathy. Her aspirin, Plavix, and Coumadin were held for possible intervention by Neuro surgery at a later date. The patient's atrial fibrillation was rate controlled during her stay here. She has had consultation with Dr. Humphrey Perez for Nephrology as well. All other electrolytes an d renal function have come back to her baseline. The patient was severely deconditioned and is slowl y recovering from the same. She is able to walk a few steps inside the room that is yesterday for e first time that is for the first time she has done so far. She was apparently very functional prio r to arrival here. She was living alone and was driving her car as well. In view of her decondition ing and the upcoming surgery, patient is being discharged to [facility] for further recuperatio n with intense physical therapy. A total of 35 minutes was spent on discharge plan. Please see a face to face documentation on [facility] for the day of discharge.
--- NOTE | 2017-06-23 16:42 | EKG ---
Test Reason : Blood Pressure : / mmHG Vent. Rate : 060 BPM Atrial Rate : 060 BPM P-R Int : 222 ms QRS Dur : 144 ms QT Int : 486 ms P-R-T Axes : 089 -45 022 degrees QTc Int : 486 ms Poor data quality, interpretation may be adversely affected Atrial-paced rhythm with prolonged AV conduction Right bundle branch block Left axis deviation Left ventricular hypertrophy with QRS widening Abnormal ECG Confirmed by YANI RAMIREZ ([id number]) on 06/23/2017 4:42:01 PM Referred By: Confirmed By:YANI RAMIREZ
== END 2017-06-22 13:15 | DRG 552 ==
LOC: ERS 10:16 → 2SE 14:54 → ONC 06-21 18:36
PROVIDERS: ADMIT Internal Medicine; ATTEND Internal Medicine
DX: M51.16 Intervertebral disc disorders with radiculopathy, lumbar region (principal); N17.9 Acute kidney failure, unspecified; L89.152 Pressure ulcer of sacral region, stage 2; E87.5 Hyperkalemia; E86.0 Dehydration; E11.22 Type 2 diabetes mellitus with diabetic chronic kidney disease; I48.0 Paroxysmal atrial fibrillation; I45.2 Bifascicular block; E87.1 Hypo-osmolality and hyponatremia; I12.9 Hypertensive chronic kidney disease with stage 1 through stage 4 chronic kidney disease, or unspecified chronic kidney disease; I25.10 Atherosclerotic heart disease of native coronary artery without angina pectoris; E78.5 Hyperlipidemia, unspecified; N39.3 Stress incontinence (female) (male); N18.3 Chronic kidney disease, stage 3 (moderate); Z95.0 Presence of cardiac pacemaker; Z79.01 Long term (current) use of anticoagulants; Z79.82 Long term (current) use of aspirin; Z88.1 Allergy status to other antibiotic agents; Z88.0 Allergy status to penicillin; Z88.2 Allergy status to sulfonamides; R41.0 Disorientation, unspecified; T40.2X5A Adverse effect of other opioids, initial encounter
CPT/HCPCS: 36415; 36416; 70450; 72131; 80048; 80053; 81003; 82330; 82550; 82553; 82570; 82803; 83970; 84155; 84165; 84484; 84702; 85007; 85014; 85018; 85025; 85027; 85049; 85610; 85730; 93005; 93010; 93970; 96361; 96365; 96375; J2270; A4216; G8978-GP-CM; G8979-GP-CK; J1650; J1815; J2405

== ENCOUNTER 2017-07-02 05:49 | Observation (INO) | payer MEDICARE, OTHER ==
[2017-07-01 17:24] VITALS: BMI 24.3
--- NOTE | 2017-07-01 21:18 | HP ---
Ms. Bills was recently seen in the hospital by our service our date of consultation was 06/18/2017. She was discharged to the [facility] for rehabilitation. HISTORY OF PRESENT ILLNESS: She is an 82-year-old female that presented to the hospital last week with left leg pain and hyperkalemia. She has severe left flank pain radiating to the left leg for the past 3 weeks in the left L5 dermatome. In the past week, the pain has gotten worse to the point where her walking is limited due to pain. She recently saw Dr. Pereira, Orthopedic Surgeon , he took images of the hip and knees and had referred her to Neurosurgery. She is unable to ambulate home, because of the pain, so her daughter brought her to the emergency department for intractable low back pain and left leg pain. CT of the lumbar spine shows a large far lateral left foraminal disk protrusion at L5 level with direct impingement of mass effect displacing the left L4 nerve root. The patient on exam, she is not in her usual state of mind because of severe pain. She was admitted to the hospital with atrial fibrillation and has a history of taking Coumadin. She has chronic kidney disease stage 3, coronary artery disease post-PCI 5-10 years ago and she had a pacemaker placed. She also has a history of hypertension, chronic anticoagulation. CURRENT MEDICATIONS: 1. Lantus 40 units q.a.m., 30 units every evening. 2. NovoLog 25 units subcu before meals twice a day. 3. Amiodarone 200 mg a day. 4. Plavix 75 mg daily. 5. Metoprolol 25 mg a day. 6. Aspirin 81 mg a day. 7. Zocor 40 mg a day. 8. Warfarin 2.5 mg a day. 9. Penicillin 20 mg a day. 7. Vicodin 5/500 one half tablet every 6 hours p.r.n. for pain. ALLERGIES: CIPRO, PENICILLIN, and SULFA. PAST SURGICAL HISTORY: Hysterectomy, bilateral cataract surgery. FAMILY HISTORY: The patient presents with coronary artery disease. Father has diabetes. She has 3 siblings with diabetes and coronary artery disease. SOCIAL HISTORY: The patient is a . CODE STATUS: Full. Daughter is Arlin, next of kin at bedside, who works at [employer]. She has no tobacco use or alcohol history. REVIEW OF SYSTEMS: The patient reports fall several weeks ago. She complains of left leg pain and low back pain. All other review of systems negative, unless stated in the above. PHYSICAL EXAMINATION: HEENT: Normocephalic, atraumatic. Hearing intact. Moist mucous membranes. Trachea is midline. EYES: Pupils are equal and reactive to light. Extraocular muscles are intact. Sclerae is white, nonicteric. CARDIOVASCULAR: The patient has regular rate and rhythm, normal S1, S2 heart sounds. No distal cyanosis or clubbing noted. EXTREMITIES: The patient has no cyanosis or clubbing in the upper and lower extremities bilaterally. Her strength sensation seems to be intact in the upper and lower extremities bilaterally. His gait is limited due to pain in the lower extremities and she has paresthesias in the left L4 dermatome on the exam. PULSES: Carotid, radial, femoral, dorsal pedal pulses are intact and symmetric. NEUROLOGIC: Cranial nerves II-XII are grossly intact. Speech is fluent. She answers my questions appropriately. IMAGING: CT of the lumbar spine at [facility]. PLAN: Dr. Land has offered a far lateral L4-L5 microdiskectomy. We reviewed the risks, benefits, and possible complications of surgery and alternatives. The patient is willing to proceed with the surgery to help with the pain in her legs. CORNELIA
[2017-07-02] MEDS ORDERED: Midazolam HCl 2 mg/2 ml Vial ONE (06:13)
[2017-07-02] MEDS ORDERED: Fentanyl 250 MCG/5 ML VIAL ONE ×2 (06:13→09:18)
[2017-07-02 06:24] LABS: Hemoglobin 14.2 g/dL (12.0-16.0); Mean Corpuscular HGB CONC 34.1 g/dL (32.0-36.0); Mean Corpuscular Hemoglobin 30.8 pg (27.0-31.0); Mean Corpuscular Volume 90.4 fl (81.0-99.0); Mean Platelet Volume 6.3 fL (7.4-10.4); Platelet Count 276 thou/uL (130-400); RBC Distribution Width 12.9 % (11.5-14.5); White Blood Cell (WBC) Count 6.1 thou/uL (4.8-10.8)
[2017-07-02] MEDS ORDERED: Bupivacaine HCl 0.5%/Epinephrine 1:200,000/PF 30 ml Vial ONE (06:24)
[2017-07-02] MEDS ORDERED: Thrombin 5000 UNITS/5 ML VIAL ONE (06:24)
[2017-07-02] MEDS ORDERED: Sodium Chloride 0.9% 10 ML ONE (06:24)
[2017-07-02] MEDS ORDERED: CEFAZOLIN/Water 2 GM/20 ML SYRINGE ONE (06:43)
[2017-07-02 06:45] LABS: INR-International Normal Ratio 1.1; Prothrombin Time 14.1 SEC (12.0-14.7)
[2017-07-02 06:50] LABS: PTT 32.4 SEC (22.9-36.1)
[2017-07-02] MEDS ORDERED: Promethazine HCl 25 MG/ML VIAL IM/IV PRN (09:00)
[2017-07-02] MEDS ORDERED: Ondansetron HCl/PF 4 MG/2 ML Vial IVP PRN (09:00)
[2017-07-02] MEDS ORDERED: Non-Formulary Medication 1 EACH PO PRN (09:22)
--- NOTE | 2017-07-02 09:52 | OP ---
DATE OF PROCEDURE: 07/02/2017 SURGEON: Leslie Land M.D. TOOL MAKER BENCH: Miko Flanagan PA-C. PREOPERATIVE INDICATION: Treat pain, prevent neurological deterioration. PREOPERATIVE DIAGNOSES: Left L4-L5 far lateral intervertebral disk herniation with L4 radiculopathy. POSTOPERATIVE DIAGNOSES: Left L4-L5 far lateral intervertebral disk herniation with L4 radiculopathy . OPERATIVE PROCEDURE: Left L4-L5 far lateral microdiskectomy. PREOPERATIVE MEDICATION: Ancef 2 grams IV. DRAIN NUMBER: Zero. DRAIN TYPE: None. OPERATIVE DICTATION: The patient was brought to the operating room. General endotracheal anesthesia was induced. The patient was positioned prone on the operating table with her chest and hips suppor nano by gel-filled chest rolls. A lateral fluoro radiograph was used to plan our incision. The lumba r skin was sterilely prepped and draped. We made our incision with a 10 blade knife. We dissected t hrough subcutaneous tissues to thoracodorsal fascia. We incised the fascia left of the midline and r eflected the paraspinal muscles off the spinous process and lamina of L4 and L5 on the left side. We brought the operating microscope into the field and under microscopic magnification using microsurgi missy techniques we continued. A self-retaining retractor was placed. A lateral fluoro radiograph con firmed the level upon which we were operating. With a high-speed drill, we thinned the lateral porti on of the lamina at L4 and the superior portion of L4-5 facet joint. Using Kerrison rongeur, we open ed a foraminotomy involving the pars and articularis superior portion of the L4-5 facet joint until w e encountered the yellow ligament. We dissected carefully and found the exiting L4 nerve root. We r emoved the yellow ligament in piecemeal fashion. We continued under the operating microscope until w e could visualize the lateral portion of the common thecal sac. We identified the L4 nerve root exit ing over a large intervertebral disk protrusion and on its ventral aspect. We reached under the nerv e and removed multiple large fragments of intervertebral disk. We found a very large hole in the florentin ulus fibrosis and there were loose fragments of disk in the disk space. We removed all the loose fra gments of disk and the remaining disk was firmly adherent to the endplates. We reached medially and swept disk out from under the common thecal sac. We reached laterally and removed disk material from under the nerve root and then we irrigated copiously with bacitracin irrigation. We ensured that th e L4 nerve root was no longer compressed or stretched. We infused local anesthetic in the paraspinal muscles. We took a small pledget of fat from the subcutaneous tissues and placed it in the defect o f the annulus fibrosis. We closed the wound in anatomic layers and we applied a sterile dressing. T his was a clean case, no contamination.
[2017-07-02] MEDS ORDERED: Acetaminophen/Codeine 30-300mg Tablet PO PRN ×2 (14:24)
[2017-07-02] MEDS ORDERED: Ondansetron HCl/PF 4 MG/2 ML Vial IM PRN (14:24)
[2017-07-02] MEDS ORDERED: tiZANidine HCl 4 MG TAB PO PRN (14:24)
[2017-07-02] MEDS ORDERED: Morphine 4 MG/ML Carpuject SLOW IVP PRN (14:24)
[2017-07-02] MEDS ORDERED: Ondansetron HCl/PF 4 MG/2 ML Vial ONE (15:17)
[2017-07-02] MEDS ORDERED: Dexamethasone 20 MG/5 ML VIAL ONE (15:17)
[2017-07-02] MEDS ORDERED: ePHEDrine/0.9% NaCl/PF SYRINGE 50 mg/10 ml ONE (15:17)
[2017-07-02] MEDS ORDERED: Lidocaine 1% PF 5 ML VIAL ONE (15:17)
[2017-07-02] MEDS ORDERED: Glycopyrrolate 0.2 MG/ML 5 ML SYRINGE ONE (15:17)
[2017-07-02] MEDS ORDERED: PROPOFOL 200 MG/20 ML VIAL ONE (15:17)
[2017-07-02 17:49] VITALS: TEMP 97.9
--- NOTE | 2017-07-05 08:17 | DIS ---
DATE OF ADMISSION: 07/02/2017 DATE OF DISCHARGE: 07/02/2017 ADMISSION DIAGNOSES: Left L4-5 far lateral intervertebral disk herniation with L4 radiculopathy. DISCHARGE DIAGNOSES: Left L4-5 far lateral intervertebral disk herniation with L4 radiculopathy. DISCHARGE CONDITION: The patient is stable. CONSULTATIONS: None. PROCEDURES: The patient had a far L4-L5 lateral microdiskectomy and decompression of the L4 nerve ro ot. HISTORY OF PRESENT ILLNESS: Ms. Bills is an 82-year-old female who had severe right-sided L4 radicu lar pain. Imaging showed a compression of the L4 exiting nerve root. She is unable to walk at the [facility] because of pain limiting her to do so. She opted for neurosurgical intervention. HOSPITAL COURSE: There were no acute events during her hospital course and she was discharged the . ACTIVITY: The patient can have regular activities with restrictions of bending over at the waist lif ting more than 15 pounds, pushing or pulling weight. DIET: Patient can have regular diet upon discharge. HOME MEDICATIONS: Include tizanidine HCL, Tylenol No. 3, multivitamin, levothyroxine sodium, Colace, Senokot, Levemir, Zocor, metoprolol tartrate, Lidoderm 5% patch, Ultram, Proctocort, Cordarone, and acetaminophen.
== END 2017-07-02 17:59 ==
LOC: SDC 05:49 → SURG A 11:23
PROVIDERS: ADMIT Neurological Surgery; ATTEND Neurological Surgery
PROC: 01NB0ZZ Release Lumbar Nerve, Open Approach (ICD-10-PCS; principal; 2017-07-02)
PROC: 0ST20ZZ Resection of Lumbar Vertebral Disc, Open Approach (ICD-10-PCS; 2017-07-02)
DX: M51.16 Intervertebral disc disorders with radiculopathy, lumbar region (principal); I12.9 Hypertensive chronic kidney disease with stage 1 through stage 4 chronic kidney disease, or unspecified chronic kidney disease; N18.3 Chronic kidney disease, stage 3 (moderate); I25.10 Atherosclerotic heart disease of native coronary artery without angina pectoris; I48.91 Unspecified atrial fibrillation; M79.605 Pain in left leg; Z79.01 Long term (current) use of anticoagulants; Z79.4 Long term (current) use of insulin; Z79.02 Long term (current) use of antithrombotics/antiplatelets; Z79.82 Long term (current) use of aspirin; Z79.2 Long term (current) use of antibiotics; Z79.899 Other long term (current) drug therapy; Z88.1 Allergy status to other antibiotic agents; Z88.0 Allergy status to penicillin; Z88.2 Allergy status to sulfonamides; Z98.41 Cataract extraction status, right eye; Z98.42 Cataract extraction status, left eye; Z96.1 Presence of intraocular lens; Z95.0 Presence of cardiac pacemaker; Z90.710 Acquired absence of both cervix and uterus; Z90.79 Acquired absence of other genital organ(s); Z90.722 Acquired absence of ovaries, bilateral; Z98.890 Other specified postprocedural states; Z91.81 History of falling
CPT/HCPCS: 36415; 85027; 85610; 85730; 96374; A4216; J0670; J1100; J2001; J2250; J2405; J2704; J3010; J3370; J3490

== ENCOUNTER 2017-08-06 11:53 | Inpatient (IN) | payer MEDICARE, OTHER ==
[2017-08-06] MEDS ORDERED: Morphine 4 MG/ML VIAL ONE (12:17)
[2017-08-06 12:48] LABS: ALT (SGPT) 42 U/L (8-55); AST (SGOT) 62 U/L (5-34); Albumin 3.6 g/dL (3.4-4.8); Alkaline Phosphatase 114 U/L (40-150); Anion Gap 16 mmol/L (10-20); BUN (Urea Nitrogen) 27 mg/dL (9.8-20.1); Bilirubin, Total 1.2 mg/dL (0.2-1.2); Calc. Creatinine Clearance 0 mL/min (70-130); Carbon Dioxide 24 mmol/L (23-31); Chloride 97 mmol/L (98-107); Estimated GFR-MDRD 25; Globulin 4.1 g/dL (2.4-3.5); Glucose 269 mg/dL (83-110); Lipase 44 U/L (8-78); Potassium 4.9 mmol/L (3.5-5.1); Protein, Total 7.7 g/dL (6.0-8.3); Sodium 132 mmol/L (136-145)
[2017-08-06 12:51] LABS: Calcium 12.5 mg/dL (7.8-10.44)
[2017-08-06 13:09] LABS: #Lymphocytes 3.1 thou/uL (1.20-3.40); #Monocytes 0.8 thou/uL (0.11-0.59); #Neutrophils 4.6 thou/uL (1.40-6.50); %Basophils 0.4 % (0.0-1.0); %Eosinophils 0.4 % (0.0-10.0); %Lymphocytes 35.7 % (21.0-51.0); %Monocytes 9.5 % (0.0-10.0); Mean Corpuscular HGB CONC 34.5 g/dL (32.0-36.0); Mean Corpuscular Hemoglobin 31.4 pg (27.0-31.0); Mean Corpuscular Volume 91.2 fl (81.0-99.0); Mean Platelet Volume 6.4 fL (7.4-10.4); Platelet Count 272 thou/uL (130-400); RBC Distribution Width 14.1 % (11.5-14.5); Red Blood Cell (RBC) Count 4.46 mill/uL (4.20-5.40); White Blood Cell (WBC) Count 8.6 thou/uL (4.8-10.8)
[2017-08-06 13:54] LABS: Bilirubin Small (Negative); Blood, Urine Negative (Negative); Clarity CLOUDY (Clear); Glucose, Urine (Dipstick) 100 mg/dL (Negative); Leukocyte Small (Negative); Nitrite Negative (Negative); Protein, Urine (Dipstick) 30 mg/dL (Neg-Trace); Specific Gravity, Urine 1.021 (1.002-1.036)
[2017-08-06 13:57] LABS: Bacteria/HPF None Seen HPF (None Seen)
[2017-08-06 14:04] LABS: Pathc Cast-AUWi Flag 2.61 (0-2.49)
[2017-08-06 14:09] LABS: Hyaline Casts/LPF 0-3 HYALINE CAST LPF (0-3 Hyaline); RBC/HPF 0-3 HPF (0-3); Renal Epithelial None Seen HPF (0-3); Transitional Epithelial 0-3 HPF (0-3)
[2017-08-06 14:10] LABS: Manual Microscopic Reviewed? No Path Casts Seen
--- NOTE | 2017-08-06 14:46 | CT ---
CT ABDOMEN AND PELVIS WITHOUT CONTRAST: HISTORY: Abdominal pain. COMPARISON: None. FINDINGS: Lung bases are clear aside from some mild likely chronic alveolitis of the medial segment right lower lobe. No significant pericardial effusion. There is a moderate-size sliding hiatal hernia. Numerous injection granulomas are present of the anterior abdominal wall. There is mild presacral ed xochilt. The gallbladder is mildly distended without significant pericholecystic fluid. There is modera te arterial medial sclerosis. No hydroureteral nephrosis. Moderate diverticular disease of the sigmoid colon without evidence of active inflammation. No signi ficant adenopathy. Mild degenerative disease of the hips. Mild facet arthrosis of lower lumbar spine. IMPRESSION: 1. No acute inflammatory process of the abdomen and pelvis. This evaluation is limited without intr avenous contrast. 2. No hydronephrosis. 3. Likely numerous injection granulomas throughout the anterior abdominal wall. 4. Postsurgical changes along the left L4 posterior elements and paraspinal soft tissues. 5. Mild low-grade retroperitoneal spacing of fluid may reflect volume overload. 6. Mild dilatation of the gallbladder. POS: DENISE
[2017-08-06 14:54] LABS: INR-International Normal Ratio 1.1; PTT 31.6 SEC (22.9-36.1); Prothrombin Time 13.9 SEC (12.0-14.7)
--- NOTE | 2017-08-06 16:29 | ULT ---
ULTRASOUND GALLBLADDER RIGHT UPPER QUADRANT: 08/06/17 HISTORY: Abdominal pain. COMPARISON: CT abdomen and pelvis same day. FINDINGS: Mild coarsened hepatic echotexture. The hepatic echotexture is mildly coarsened. There is low grade pericholecystic fluid. According to the technologist, sonographic Sal's sign is positive. There is small calculi within the gallbladder fundus. Right kidney measures 9.8 x 4.6 x 3.6 cm. Gallbladder wall thickness is 4 mm. IMPRESSION: Positive Sal's sign and mildly thickened gallbladder wall with small gallstones. In the correct cl inical setting, this may represent acute cholecystitis. Although on the CT examination there was rela tively no pericholecystic edema to suggest inflammation. The patient did have some third spacing of f luid on the CT examination. Surgical consultation is advised. Nuclear medicine findings may be benefi cial in this patient. Mildly coarsened hepatic echotexture can be seen with cirrhosis, given the lack of fatty infiltration on the CT exam. POS: JOAN
[2017-08-06 16:31] LABS: Lactic Acid 1.2 mmol/L (0.5-2.2)
[2017-08-06] MEDS ORDERED: MEROPENEM 1 GM/50 ML 1 GM in Premix Bag 1 BAG IVPB SCH (16:45)
[2017-08-06] MEDS ORDERED: Ondansetron ODT 4 MG TAB PO PRN (19:19)
[2017-08-06] MEDS ORDERED: Dextrose 50% Abboject 50 ML SYRINGE SLOW IVP PRN (19:19)
[2017-08-06] MEDS ORDERED: Bisacodyl 10 MG SUPP PR PRN (19:19)
[2017-08-06] MEDS ORDERED: Dextrose 5% in Water 1,000 ML IV PRN (19:19)
[2017-08-06] MEDS ORDERED: Ondansetron HCl/PF 4 MG/2 ML Vial IVP PRN (19:19)
[2017-08-06] MEDS ORDERED: Acetaminophen 325 MG TAB PO PRN (19:19)
[2017-08-06] MEDS ORDERED: traMADol HCl 50 MG TAB PO PRN (19:19)
[2017-08-06] MEDS ORDERED: Polyethylene Glycol 3350 17 GM Packet PO SCH (19:30)
[2017-08-06] MEDS: Famotidine 20 MG TAB PO SCH (20:49)
[2017-08-06] MEDS: Sodium Chloride 0.9% 1,000 ML IV SCH (20:50)
--- NOTE | 2017-08-06 23:08 | HP ---
PRIMARY CARE PHYSICIAN: Chato Scales MD PRIMARY GOLD MARKER: Rudy Olivarez MD PRIMARY RENAL DOCTOR: Humphrey Perez MD DATE OF ADMISSION: 08/06/2017 CHIEF COMPLAINT: Abdominal pain. HISTORY OF PRESENT ILLNESS: Ms. Bills is an 82-year-old female who [facility] with 3 to 4 days' history of abdominal pain. The pain is actually migratory. Occasionally, up in the right upper quadrant, currently down in the right lower quadrant, sometimes over in the left l ower quadrant. Recent history significant for admission back in May for acute renal failure, dehydration. She was subsequently discharged. She made an appointment outpatient [facility] for lumbar surgery due to a chr onic low back pain. Early June, she did undergo lumbar surgery with Dr. Land, and seemed to do intraoperatively. She was discharged to rehab postoperatively. She was at rehab until about 3 days ago. The daughter had just learned as I was in there, that the patient has been having abdominal pa in for a few days prior to discharge. She has not been eating very well and was taking chronic pain medicines. Her pain seemed to get worse and she was not eating well, so she will be brought to the e mergency department for evaluation. It has been at least 3 or 4 days since her last bowel movement. She has not had any fevers or chills. She has had nausea without vomiting. No chest pain or diffic ulty breathing. PAST MEDICAL HISTORY: Significant recently for shingles which just recently completed antivirals. S he is beginning a dose of steroids started about 72 hours or so after the onset of symptoms. In the emergency department, workup was significant for a fairly normal CBC and CMP except for creati nine is up to 1.91. She was at 1.5 back on 07/06 and normal saline to be around 1.0, last on 06/28. AST was mildly elevated at 62. Coags were normal. Urinalysis was significant for ischemic examination. CT scan of the abdomen was ordered that was largely unremarkable as an ultrasound of the right upper quadrant was obtained. She had minimal gallbladder wall thickening, some small stones and "positive" Sal sign. The patient denies any other complaints. PAST MEDICAL HISTORY: 1. Chronic atrial fibrillation. 2. Diabetes mellitus type 2. 3. Hypertension. 4. History of cerebrovascular accident, status post TIA x2. 5. Cardiomyopathy. PAST SURGICAL HISTORY: Include; 1. PTCA x2. 2. Stents x1. 3. Permanent pacemaker placement. 4. Bilateral cataract surgery. 5. Appendectomy. 6. Bladder suspension. 7. Hysterectomy. HOME MEDICATIONS: 1. Amiodarone, I think 50 mg daily. 2. Plavix 75 mg daily. 3. Toprol-XL 25 mg p.o. b.i.d., metoprolol tartrate 4. Aspirin 81 mg daily. 5. Zocor 40 mg p.o. at bedtime. 6. Lantus 40 units subcu q.a.m., 60 units subcu q.p.m. 7. NovoLog 25 units b.i.d. a.c. 8. Gabapentin 300 mg p.o. t.i.d. ALLERGIES: CIPRO, PENICILLIN, SULFA. She did try to take CODEINE and TYLENOL NO.3 and it made her v cherie goofy. FAMILY HISTORY: Significant for diabetes and coronary artery disease remotely. SOCIAL HISTORY: Negative for habits x3. She is recently at home. She has daughter's help take care of her. REVIEW OF SYSTEMS: A 10-point review of systems was performed, negative for all systems except as pe r HPI. PHYSICAL EXAMINATION: VITAL SIGNS: Temperature 98.2, pulse 62, blood pressure 155/60, respiratory rate 20, satting 95% on room air. GENERAL: She is awake. She is alert. She is in obvious discomfort, but in no distress. HEENT: Normocephalic, atraumatic. Pupils equal, round, and reactive bilaterally, some bilateral pse udophakia. Mucous membranes are moist. No visible lesion or thrush. NECK: Supple without lymphadenopathy, JVD, or thyromegaly. LUNGS: Clear. She has good air movement. Symmetrical chest excursion. No prolonged expiratory pha se. No wheezes, rales, or rhonchi. CARDIOVASCULAR: She has normal cardiac and regular. Normal S1, S2. No S3 or S4. ABDOMEN: Soft, is diffusely tender, but particularly tender to light palpation over the right abdome n over her healing shingles rash. She has no Sal sign on my examination, but does have tenderness on the superficial abdominal wall from her shingles lesions. She has hyperactive bowel sounds prese nt x4 quadrants that are high pitched and migratory. There is no rebound, rigidity, or guarding. EXTREMITIES: No cyanosis, clubbing with trace pedal edema. SKIN: Otherwise, warm, moist, and well perfused. She does have a shingles rash present for midline on the right middle abdomen around to the back. There is in the late stages of healing and no longer active. MUSCULOSKELETAL: Normal to inspection. She has no enlarged joints. No palpable effusions. No infl ammation. NEUROLOGIC: Shows cranial nerves II through XII are grossly intact, she has 5/5 strength in all 4 ex tremities. She has no focal deficits and normal speech pattern. LABORATORY EVALUATION: Sodium is 132, potassium 4.9, chloride 97, bicarbonate 24, BUN 27, creatinine 1.91 with recent 1.51 on 07/06 and 1.00 on 06/28, calcium elevated at 12.5, glucose 269. Total bilirubin 1.2, alkaline phosphatase normal at 114, AST is mildly elevated at 62 and ALT normal at 42. CBC showed a white count of 8.6, hemoglobin 14.0, hematocrit of 40.7, platelet count 272,000. Her PT 30.9, INR is 1.1, PTT 31.6, urinalysis was contaminated with 11-20 squamous epithelial cells. Lacti c acid was initially 2.6, then 1.[address] scan of the abdomen showed no acute intra-abdominal pathology. Ultrasound of the right upper quad rant showed a mildly thickened gallbladder wall, mild small gallstones, and a Sal sign. ASSESSMENT AND PLAN: 1. Abdominal pain: Actually think she is more constipated then having a gallbladder attack. We roger l put on MiraLax b.i.d. starting now and she will get her bowels to move overnight. She has crampy m igratory abdominal pain. It is not related to eating and I think, she has had decreased appetite, so she has not had a good bowel movement in some time. We will watch her overnight, Dr. Murray was co nsulted from the emergency department, so will evaluate the patient in the morning. I do not think t here is any urgent gallbladder issue at present. 2. History of chronic atrial fibrillation, currently in sinus rhythm. She is on amiodarone, we will hold it for right now. 3. Diabetes mellitus type 2. She is n.p.o. at present. We will put on a clear diet if she can tole rate. We will try to get her bowels to move. She is on large doses of insulin, will hold this for n ow and put her on sliding scale correction, just as needed. 4. Hypertension: Blood pressure is a little bit on the higher side. She is on metoprolol, will hol d at present. 5. History of cerebrovascular disease with transient ischemic attack x2 in the past, no residual def icits. 6. History of cardiomyopathy. I will start the patient on IV fluid 100 mL per hour and watch closel y. Do not bolus her due to unknown cardiomyopathy. Place the patient as inpatient on the surgical floor. Follow up in the morning and see what the surg cherie has offered.
--- NOTE | 2017-08-07 00:40 | CON ---
DATE OF CONSULTATION: 08/06/2017 REASON FOR CONSULTATION: Abdominal pain. HISTORY: Ms. Bills is an 82-year-old woman with abdominal pain of unknown duration. Her daughter is with her currently and states that she came to be with her on Wednesday and her mother has exhibited abdominal pain at least since that time. On conversation with her other daughter, the patient was apparently having abdominal pain last week as well. The daughter who is currently with her states that since Wednesday her mother has eaten extremely little and when she does eat has terrible abdominal pain. She had multiple episodes of nausea and vomiting on Wednesday, but this was attributed to Tylenol #3 and stopped after she quit taking that medication. The patient has had a recent shingles outbreak with a rash around her right flank and abdomen, and so she thought that the pain might be from this, but the pain was not getting better, so she came in to the emergency room today and was found to be significantly dehydrated with acute on chronic renal failure. The patient is unable to really localize her pain or give many details about it. She did receive a dose of morphine in the emergency room and spent most of the day sleeping and states that her pain is better now. She has been in a detention for the past few months. She apparently was having problems with back pain and underwent lumbar surgery and was just discharged to home on Wednesday. She has not had any known fevers or chills. PAST MEDICAL HISTORY: Atrial fibrillation, diabetes, hypertension, TIAs, and coronary artery disease. Chronic renal insufficiency, treated by Dr. Humphrey Perez. PAST SURGICAL HISTORY: She has had stents and a pacemaker, appendectomy, hysterectomy, bladder suspension, and cataracts. MEDICATIONS: She is on amiodarone, Plavix, Toprol, aspirin, Zocor, Lantus, NovoLog, gabapentin. ALLERGIES: She has multiple allergies including CIPRO, PENICILLIN, and SULFA. She has severe adverse drug reaction to Tylenol with Codeine, which caused severe nausea and vomiting. SOCIAL HISTORY: She does not smoke, drink, or use illicit drugs. She was in a detention recently for several months and just was discharged home. REVIEW OF SYSTEMS: Ten system review of systems was unable to be performed due to the patient's mental status, but according to the daughters, she has complained only of weakness and abdominal pain recently. They have tried to get her to eat and to drink Ensure and she has mostly refused, taking only small amounts of food and water. PHYSICAL EXAMINATION: VITAL SIGNS: The patient has been afebrile since her admission. Heart rate 71 , respirations 16, 95% saturated on room air, blood pressure 148/68. GENERAL: Reveals a pleasant elderly woman, who is somewhat groggy and only intermittently replies to answers with repeated prompting. She is in no acute distress. She is not flushed or toxic. She is not jaundiced or icteric. HEENT: Unremarkable. NECK: Supple, without lymphadenopathy or thyroid nodules. HEART: Regular in its rate and rhythm without murmurs, rubs, or gallops. LUNGS: Clear to auscultation bilaterally. She does not exhibit any pain with deep inspiration, but her inspiratory effort is somewhat poor. ABDOMEN: Soft and nondistended. She has a reducible umbilical hernia and a healing rash over the right flank and abdomen, greater than left. She is mildly tender diffusely, but exhibits severe tenderness with palpation in the right upper quadrant. EXTREMITIES: Warm and well perfused without edema and with normal pedal pulses. She does not have any abdominal or cervical bruits. NEUROLOGIC: No focal deficits, but diffusely weak. PSYCHIATRIC: Unable to evaluate, as the patient is still somewhat groggy after receiving morphine earlier today; however, according to the ER doctor, she was not answering questions very clearly before the morphine. LABORATORY DATA: Her white count is normal at 8.6, she does not exhibit a left shift, although apparently she was on steroids recently for her shingles. Coags are normal. BUN and creatinine are 27 and 1.91. Lactate was initially 2.6, but came down to 1.2 after hydration. Calcium was high at 12.5, AST is mildly elevated at 62, but other LFTs are normal. Albumin is 3.6, which is at lower levels normal. Lipase is 44, which is normal. CT images are reviewed and I agree with the written report. She has calcification of her aorta, but no evident calcification at the takeoff of the SMA and the celiac somewhat calcified. No stranding or inflammatory changes around the intestine, although without contrast. The exam is somewhat limited. On ultrasound of the gallbladder, she was noted to have a positive sonographic Sal's and some pericholecystic fluid and thickening of the gallbladder wall as well as a few small stones. ASSESSMENT: Likely acute cholecystitis. She has severe calcifications of her aorta and a history of cerebral vascular disease and coronary artery disease, so mesenteric ischemia cannot be completely ruled out, but she appears to have more focal tenderness in the right upper quadrant and her ultrasound is suggestive of cholecystitis. I have ordered a mesenteric duplex in the morning , and if this is abnormal, I would recommend a vascular consult before considering cholecystectomy. However, if this is normal, I think that cholecystitis is most likely explanation for her abdominal pain and hesitation to eat. I have tentatively put her on the schedule for a laparoscopic cholecystectomy with cholangiogram tomorrow, but this will be dependent on her clinical condition as well as a result of her mesenteric Doppler. I discussed the recommended treatment plan with the patient and her daughter and they are agreeable to this. She is currently on meropenem, which should provide good coverage of the gallbladder. We will await results of her repeat labs in the morning and her mesenteric Doppler. I have also ordered some nutrition labs as I suspect she is significantly malnourished. CORNELIA
[2017-08-07] MEDS: Sodium Chloride 0.9% 1,000 ML IV SCH ×4 (04:35→21:58)
[2017-08-07] MEDS ORDERED: Morphine 4 MG/ML VIAL SLOW IVP PRN (05:30)
[2017-08-07] MEDS: Morphine 4 MG/ML VIAL SLOW IVP PRN ×2 (05:39→19:28)
[2017-08-07 05:43] LABS: Hemoglobin A1c 7.7 % (4.0-6.0)
[2017-08-07 06:07] LABS: ALT (SGPT) 36 U/L (8-55); AST (SGOT) 48 U/L (5-34); Albumin 3.1 g/dL (3.4-4.8); Alkaline Phosphatase 90 U/L (40-150); Anion Gap 9 mmol/L (10-20); BUN (Urea Nitrogen) 24 mg/dL (9.8-20.1); Bilirubin, Total 0.9 mg/dL (0.2-1.2); Calc. Creatinine Clearance 0 mL/min (70-130); Calcium 10.6 mg/dL (7.8-10.44); Carbon Dioxide 28 mmol/L (23-31); Cardiac Risk 3.7 (Less than 4.5); Chloride 104 mmol/L (98-107); Cholesterol 104 mg/dl (< 200 Desired); Estimated GFR-MDRD 30; Globulin 3.3 g/dL (2.4-3.5); Glucose 190 mg/dL (83-110); HDL Cholesterol 28 mg/dL (>60 Neg Risk); LDL Cholesterol, Calculated 53 mg/dL; Magnesium 1.3 mg/dL (1.6-2.6); Phosphorus 2.8 mg/dL (2.3-4.7); Protein, Total 6.4 g/dL (6.0-8.3); Sodium 137 mmol/L (136-145); Triglycerides 117 mg/dL (Less than 150)
[2017-08-07 07:14] VITALS: BMI 21.4
[2017-08-07 08:13] LABS: #Eosinphils 0.1 thou/uL (0.0-0.7); #Lymphocytes 1.3 thou/uL (1.20-3.40); #Monocytes 0.4 thou/uL (0.11-0.59); #Neutrophils 2.8 thou/uL (1.40-6.50); %Basophils 0.3 % (0.0-1.0); %Eosinophils 1.4 % (0.0-10.0); %Lymphocytes 29.1 % (21.0-51.0); %Monocytes 9.2 % (0.0-10.0); Hemoglobin 12.1 g/dL (12.0-16.0); Mean Corpuscular HGB CONC 33.4 g/dL (32.0-36.0); Mean Corpuscular Hemoglobin 31.4 pg (27.0-31.0); Mean Corpuscular Volume 93.9 fl (81.0-99.0); Mean Platelet Volume 6.1 fL (7.4-10.4); Platelet Count 162 thou/uL (130-400); RBC Distribution Width 14.4 % (11.5-14.5); Red Blood Cell (RBC) Count 3.86 mill/uL (4.20-5.40); White Blood Cell (WBC) Count 4.6 thou/uL (4.8-10.8)
[2017-08-07] MEDS ORDERED: Magnesium Sulfate 3 GM in Sodium Chloride 0.9% 100 ML IVPB SCH (08:45)
[2017-08-07] MEDS: Polyethylene Glycol 3350 17 GM Packet PO SCH ×3 (09:00→22:12)
[2017-08-07] MEDS: Metoprolol Tartrate 25 MG TAB PO SCH ×3 (09:45→22:15)
[2017-08-07] MEDS ORDERED: Metoprolol Tartrate 25 MG TAB PO SCH ×2 (09:45→22:30)
--- NOTE | 2017-08-07 10:18 | ULT ---
ABDOMINAL AORTIC ULTRASOUND WITH DOPPLER EVALUATION OF ABDOMINAL VESSELS INCLUDING VESSELS PROVIDING FLOW TO THE GI SYSTEM: HISTORY: Abdominal pain. FINDINGS: Multiple longitudinal and transverse images of the abdominal aorta are obtained using a multihertz cu rvilinear transducer. Real-time, color flow, and spectral waveform Doppler analysis was used to eval uate the abdomen. Normal waveform is seen in the abdominal aorta. Abdominal aorta is not dilated. Diameter is within normal limits measuring approximately 1.5 cm in the proximal abdominal aorta and 1.1 cm to the distal abdominal aorta. Normal flow is seen in the celiac artery, superior mesenteric artery, and splenic and hepatic arteries. The inferior mesenteric artery is not seen. This is, however, not surprising due to the patient's body habitus. IMPRESSION: Normal flow is seen in the SMA and celiac arteries. POS: JOAN
[2017-08-07] MEDS ORDERED: MEROPENEM 1 GM/50 ML 1 GM in Premix Bag 1 BAG IVPB SCH (11:45)
[2017-08-07] MEDS ORDERED: Bupivacaine/Epinephrine 0.25% 30 ML VIAL ONE (11:47)
[2017-08-07] MEDS ORDERED: Iothalamate Meglumine 60% 50 ML VIAL FS ONE (11:47)
[2017-08-07] MEDS ORDERED: Fentanyl 100 MCG/2 ML VIAL ONE ×2 (12:00→14:35)
--- NOTE | 2017-08-07 12:16 | PDOC.GSPN ---
Surgery Progress Note: Subj - Subjective Narrative: Patient continues to intermittently complain of pain according to her daughter but denied pain when I was with her. She still exhibits right upper quadrant and epigastric tenderness palpation greater than the rest of the abdomen. Her mesenteric duplex did not indicate significant stenosis. After discussion with the patient and her daughter we decided to proceed with laparoscopic cholecystectomy. Alternative of a cholecystostomy tube drainage were also discussed but the patient prefers definitive treatment. The inherent risks of the surgery were discussed with the patient and her daughter. These risks include but are not limited to bleeding, infection, risks of anesthesia, damage to nearby structures including bowel liver and bile duct, need for open surgery , and difficulties recovering from surgery at her advanced age. They understand and accept these risks and wished to proceed. All their questions were answered. She has tolerated meropenem despite a reported penicillin allergy so we will continue this perioperatively. Surgery Progress Note: Obj - Vital signs Vital signs: Vital Signs - Most Recent Temp Pulse Resp BP Pulse Ox 97.5 F L 68 16 164/66 H 95 08/07/17 07:40 08/07/17 07:40 08/07/17 07:40 08/07/17 07:40 08/07/17 07:40 Surgery Progress Note: Results - Labs Result Diagrams: 08/07/17 07:44 08/07/17 04:42 Lab results: Laboratory Results - last 24 hr 08/07/17 08/07/17 08/07/17 04:42 04:42 04:42 WBC RBC Hgb Hct MCV MCH MCHC RDW Plt Count MPV Neutrophils % Lymphocytes % Monocytes % Eosinophils % Basophils % Neutrophils # Lymphocytes # Monocytes # Eosinophils # Basophils # Sodium 137 Potassium 4.0 Chloride 104 Carbon Dioxide 28 Anion Gap 9 L BUN 24 H Creatinine 1.64 H Estimated GFR (MDRD) 30 Glucose 190 H POC Glucose Hemoglobin A1c 7.7 H Calcium 10.6 H Phosphorus 2.8 Magnesium 1.3 L Total Bilirubin 0.9 AST 48 H ALT 36 Alkaline Phosphatase 90 Serum Total Protein 6.4 Albumin 3.1 L Globulin 3.3 Albumin/Globulin Ratio 0.9 L Prealbumin Triglycerides 117 Cholesterol 104 LDL Cholesterol, Calc 53 HDL Cholesterol 28 Heart Disease Risk Ratio 3.7 TSH 3rd Generation 3.2378 08/07/17 08/07/17 08/07/17 04:42 05:41 07:44 WBC 4.6 L RBC 3.86 L Hgb 12.1 Hct 36.3 MCV 93.9 MCH 31.4 H MCHC 33.4 RDW 14.4 Plt Count 162 MPV 6.1 L Neutrophils % 60.0 Lymphocytes % 29.1 Monocytes % 9.2 Eosinophils % 1.4 Basophils % 0.3 Neutrophils # 2.8 Lymphocytes # 1.3 Monocytes # 0.4 Eosinophils # 0.1 Basophils # 0.0 Sodium Potassium Chloride Carbon Dioxide Anion Gap BUN Creatinine Estimated GFR (MDRD) Glucose POC Glucose 212 H Hemoglobin A1c Calcium Phosphorus Magnesium Total Bilirubin AST ALT Alkaline Phosphatase Serum Total Protein Albumin Globulin Albumin/Globulin Ratio Prealbumin 16.0 Triglycerides Cholesterol LDL Cholesterol, Calc HDL Cholesterol Heart Disease Risk Ratio TSH 3rd Generation
--- NOTE | 2017-08-07 12:58 | PDOC.PN ---
- Subjective Encounter Start Date: 08/07/17 Encounter Start Time: 10:00 Pt still with intermittent pain. Got miralax,no BM, no N/v, no f/C, no CP, no SOB. Abd U/S ordered by Dr Murray neg for evidence of mesenteric flow limitations. to OR with Dr Murray this morning for lap felicita. 10 point rOS performed and neg for all systems except as per HPI - Objective Resuscitation Status: Resuscitation Status FULL:Full Resuscitation MAR Reviewed: Yes Vital Signs & Weight: Vital Signs (12 hours) Temp Pulse Resp BP Pulse Ox 08/07/17 07:40 97.5 F L 68 16 164/66 H 95 Weight Admit Weight 129 lb Weight 129 lb Result Diagrams: 08/07/17 07:44 08/07/17 04:42 Additional Labs: Accuchecks 08/07/17 08/06/17 05:41 20:57 POC Glucose 212 H 181 H Radiology Reviewed by me: Yes Phys Exam - Physical Examination Constitutional: NAD HEENT: PERRLA, moist MMs, sclera anicteric, oral pharynx no lesions Neck: no nodes, no JVD, supple, full ROM Respiratory: no wheezing, no rales, no rhonchi, clear to auscultation bilateral Cardiovascular: RRR, no significant murmur, no rub Gastrointestinal: no distention, positive bowel sounds diffusely tender, nore to RUQ, Right lat abd, no monte Musculoskeletal: pulses present, edema present Neurological: non-focal, normal sensation, moves all 4 limbs Lymphatic: no nodes Psychiatric: normal affect Skin: no rash, normal turgor, cap refill <2 seconds Dx/Plan - Plan cont current plan of care, continue antibiotics * . to OR with Dr Murray, post op orders pending
[2017-08-07] MEDS ORDERED: Ondansetron HCl/PF 4 MG/2 ML Vial IVP PRN ×2 (14:06)
[2017-08-07] MEDS ORDERED: Lidocaine 1% PF 5 ML VIAL ONE (15:35)
[2017-08-07] MEDS ORDERED: Ondansetron HCl/PF 4 MG/2 ML Vial ONE (15:35)
[2017-08-07] MEDS ORDERED: PHENYLEPHRINE-NS 100 MCG/ML 10 ML SYRINGE ONE (15:35)
[2017-08-07] MEDS ORDERED: PROPOFOL 200 MG/20 ML VIAL ONE (15:35)
[2017-08-07] MEDS ORDERED: Glycopyrrolate 0.2 MG/ML 5 ML SYRINGE ONE (15:35)
[2017-08-07] MEDS ORDERED: Dexamethasone 20 MG/5 ML VIAL ONE ×2 (15:35)
[2017-08-07] MEDS: Lidocaine 5% Patch TD SCH (17:14)
--- NOTE | 2017-08-07 17:16 | RAD ---
CHOLANGIOGRAM IN SURGERY: 08/07/17 COMPARISON: Gallbladder ultrasound . HISTORY: Cholelithiasis. FINDINGS/IMPRESSION: A single limited intraoperative fluoroscopic view from a cholangiogram inserted was submitted for int erpretation. Contrast is seen within the cystic duct and common bile duct. Contrast also spills into the duodenum. No obvious filling defects are seen. No central intrahepatic biliary dilatation is seen . POS: DENISE
[2017-08-07] MEDS: HumaLOG 300 UNITS/3 ML VIAL SC PRN (17:48)
--- NOTE | 2017-08-07 21:33 | PDOC.OP ---
Operative Note - Operative Note Operative Note: PROCEDURE: Laparoscopic cholecystectomy with intraoperative cholangiogram SURGEON: Mariusz Murray M.D. DATE OF PROCEDURE: 08/07/2017 PREOPERATIVE DIAGNOSIS: Cholelithiasis and cholecystitis, possible choledocholithiasis: POSTOPERATIVE DIAGNOSIS: Cholelithiasis and cholecystitis HISTORY: Elderly woman with a multiple day history of abdominal pain and decreased oral intake. Gallbladder ultrasound showed pericholecystic fluid or wall thickening consistent with cholecystitis, as well as cholelithiasis. Recommendation was made to proceed with laparoscopic cholecystectomy, with intraoperative cholangiogram due to mild elevation of transaminases. FINDINGS: Chronically distended gallbladder with omental and duodenal adhesions. PROCEDURE IN DETAIL: After informed consent was obtained and appropriate preoperative antibiotics were administered, the patient was taken to the operating room and placed in the supine position and general endotracheal anesthesia was administered. The stomach was decompressed with an OG tube and the abdomen was prepped and draped in standard sterile fashion. Local anesthesia was infused to the skin and subcutaneous tissues at the umbilical level. A transverse skin incision was made. The fascia was elevated and a Veress needle was placed into the abdominal cavity without difficulty. Opening pressure was less than 5 and carbon dioxide gas easily insufflated to an intra- abdominal pressure of 15, which the patient tolerated well. The Veress needle was withdrawn and a Pinson port advanced under direct vision. The abdominal cavity was carefully examined. There was no evidence of Veress needle or of trocar injury. Local anesthesia was infused to the skin and subcutaneous tissues at the epigastric, right upper quadrant, and right lateral abdominal sites and trocars were placed under direct vision of the laparoscope. The fundus of the gallbladder was grasped and retracted superiorly. Multiple omental adhesions were taken down carefully through the avascular plane, exposing the body of the gallbladder. As the infundibulum was approached duodenal adhesions were also encountered these were taken down sharply through the avascular plane avoiding electrocautery in the region of the duodenum. The infundibulum was grasped and retracted laterally. The serosa was stripped inferiorly at the level of the neck of the gallbladder exposing the cystic duct and artery which were traced clearly to their insertion in the gallbladder. These were dissected free circumferentially and the cystic duct was clipped at the level of the neck of the gallbladder. The cystic artery was clipped but not divided. An incision was made in the cystic duct inferior to the clip and the cystic duct was palpated with no stones palpable. Clear bile was seen to flow from the cystic duct incision. A cholangiogram catheter was introduced and placed into the cystic duct and secured with a clip. A cholangiogram was obtained which showed an adequate length of cystic duct. There was normal filling of the common bile duct with free flow of contrast into the duodenum. There was normal retrograde flow into the common hepatic duct beyond the level of the bifurcation without filling defects. The cholangiogram catheter was removed and the cystic duct clipped below the incision in the cystic duct. The cystic duct was divided between these clips and the previously placed clip. The cystic artery was clipped and divided between the previously placed clips. The gallbladder was then dissected free of the gallbladder bed using hook electrocautery. Prior to complete removal of the gallbladder from the gallbladder bed, the area of the cystic duct and artery stumps was examined. The clips were in good position completely across these structures and there was no bleeding and no leakage of bile. The gallbladder was then placed into an EndoCatch bag and drawn out through the epigastric incision. The epigastric trocar was replaced and the operative site easily irrigated to clear. There was no significant bleeding or spillage of bile. The epigastric trocar was removed and the fascia closed under direct laparoscopic vision with a 0 Vicryl suture on a GraNee needle in a [id number] manner with excellent technical result. The right upper quadrant and right lateral abdominal trocars were removed and hemostasis verified. Carbon dioxide gas was allowed to desufflate through the umbilical trocar which was then removed. The skin incisions were closed with 4- 0 subcuticular Monocryl sutures and Dermabond dressings were placed. The patient was extubated and taken to the recovery room in good condition. There were no complications. ESTIMATED BLOOD LOSS: Minimal. SPECIMEN : Gallbladder and contents.
[2017-08-07] MEDS: traMADol HCl 50 MG TAB PO PRN (21:56)
[2017-08-07] MEDS: Famotidine 20 MG TAB PO SCH ×2 (21:56→22:13)
[2017-08-07] MEDS: Lidocaine Patch Removal 1 EACH TOP SCH (21:58)
[2017-08-08 04:54] LABS: #Monocytes 0.4 thou/uL (0.11-0.59); #Neutrophils 8.1 thou/uL (1.40-6.50); %Basophils 0.3 % (0.0-1.0); %Eosinophils 0.1 % (0.0-10.0); %Lymphocytes 10.5 % (21.0-51.0); %Monocytes 4.2 % (0.0-10.0); Hemoglobin 11.3 g/dL (12.0-16.0); Mean Corpuscular HGB CONC 34.7 g/dL (32.0-36.0); Mean Corpuscular Hemoglobin 33.2 pg (27.0-31.0); Mean Corpuscular Volume 95.6 fl (81.0-99.0); Mean Platelet Volume 6.6 fL (7.4-10.4); Platelet Count 258 thou/uL (130-400); RBC Distribution Width 14.4 % (11.5-14.5); White Blood Cell (WBC) Count 9.6 thou/uL (4.8-10.8)
[2017-08-08 05:03] LABS: ALT (SGPT) 52 U/L (8-55); AST (SGOT) 70 U/L (5-34); Albumin 3.1 g/dL (3.4-4.8); Alkaline Phosphatase 88 U/L (40-150); Anion Gap 9 mmol/L (10-20); BUN (Urea Nitrogen) 25 mg/dL (9.8-20.1); Bilirubin, Total 0.7 mg/dL (0.2-1.2); Calc. Creatinine Clearance 29 mL/min (70-130); Calcium 9.6 mg/dL (7.8-10.44); Carbon Dioxide 27 mmol/L (23-31); Chloride 104 mmol/L (98-107); Estimated GFR-MDRD 36; Globulin 3.2 g/dL (2.4-3.5); Glucose 254 mg/dL (83-110); Magnesium 1.8 mg/dL (1.6-2.6); Potassium 4.7 mmol/L (3.5-5.1); Protein, Total 6.3 g/dL (6.0-8.3); Sodium 135 mmol/L (136-145)
[2017-08-08] MEDS: Sodium Chloride 0.9% 1,000 ML IV SCH ×3 (05:40→15:15)
[2017-08-08] MEDS: Morphine 4 MG/ML VIAL SLOW IVP PRN ×2 (06:10→11:32)
[2017-08-08] MEDS: Lidocaine 5% Patch TD SCH (09:41)
[2017-08-08] MEDS: Metoprolol Tartrate 25 MG TAB PO SCH ×3 (09:41→21:38)
[2017-08-08] MEDS: Polyethylene Glycol 3350 17 GM Packet PO SCH ×2 (09:42→21:35)
[2017-08-08] MEDS ORDERED: Fleet Enema 133 ML BOT PR PRN (09:53)
--- NOTE | 2017-08-08 12:22 | PDOC.PN ---
- Subjective Encounter Start Date: 08/08/17 Encounter Start Time: 08:00 Pt seen for followup re: cholecystitis. Not answering questions, unable to complete ROS. Daughters by bedside, report that pt is constipated. - Objective Resuscitation Status: Resuscitation Status FULL:Full Resuscitation MAR Reviewed: Yes Vital Signs & Weight: Vital Signs (12 hours) Temp Pulse Resp BP Pulse Ox 08/08/17 07:55 98.2 F 73 16 146/70 H 97 08/08/17 06:19 97.8 F 68 20 138/73 98 08/08/17 05:45 97 Weight Admit Weight 129 lb Weight 129 lb I&O: 08/07/17 08/08/17 08/09/17 06:59 06:59 06:59 Intake Total 500 Balance 500 Result Diagrams: 08/09/17 09:45 08/09/17 09:45 Additional Labs: Accuchecks 08/08/17 08/08/17 08/07/17 11:12 06:10 20:42 POC Glucose 225 H 238 H 275 H 08/07/17 15:48 POC Glucose 265 H Phys Exam - Physical Examination Constitutional: NAD HEENT: moist MMs Neck: supple, full ROM Respiratory: clear to auscultation bilateral Cardiovascular: no rub, irregular Gastrointestinal: soft, no distention, positive bowel sounds Mild RUQ tenderness, no guarding or rigidity Neurological: moves all 4 limbs Psychiatric: normal affect Deviation from normal: surgical sites clean Dx/Plan (1) Cholecystitis Code(s): K81.9 - CHOLECYSTITIS, UNSPECIFIED Status: Acute Comment: s/p lap felicita during this admission (2) Cholelithiasis Code(s): K80.20 - CALCULUS OF GALLBLADDER W/O CHOLECYSTITIS W/O OBSTRUCTION Status: Acute Comment: s/p lap felicita (3) BREE (acute kidney injury) Code(s): N17.9 - ACUTE KIDNEY FAILURE, UNSPECIFIED Status: Resolved Comment : Creatinine 0.93 today (4) Constipation Code(s): K59.00 - CONSTIPATION, UNSPECIFIED Status: Acute Comment: Magnesium citrate; per nursing staff patient is not eatring much and had three large bowel movements two days ago. (5) Atrial fibrillation Code(s): I48.91 - UNSPECIFIED ATRIAL FIBRILLATION Status: Chronic Qualifiers: Atrial fibrillation type: chronic Qualified Code(s): I48.2 - Chronic atrial fibrillation Comment: rate-controlled (6) Diabetes Code(s): E11.9 - TYPE 2 DIABETES MELLITUS WITHOUT COMPLICATIONS Status: Chronic Qualifiers: Diabetes mellitus type: type 2 Diabetes mellitus termite helper insulin use: with termite helper use Diabetes mellitus complication status: with unspecified complications Qualified Code(s): E11.8 - Type 2 diabetes mellitus with unspecified complications; Z79.4 - termite exterminator (current) use of insulin; Z79.4 - termite exterminator (current) use of insulin; Z79.4 - penitentiary (current) use of insulin; Z79.4 - penitentiary (current) use of insulin Comment: accuchecks, insulin sliding scale (7) Dyslipidemia Code(s): E78.5 - HYPERLIPIDEMIA, UNSPECIFIED Status: Chronic - Plan * . Review of Systems - Medications/Allergies Allergies/Adverse Reactions: Allergies Allergy/AdvReac Type Severity Reaction Status Date / Time ciprofloxacin [From Cipro] Allergy Severe ITCHING Verified 07/01/17 17:16 ciprofloxacin HCl Allergy Severe ITCHING Verified 07/01/17 17:16 [From Cipro] Penicillins Allergy Unknown Verified 07/01/17 17:16 sitagliptin phosphate AdvReac Stomach Verified 07/01/17 17:16 [From Januvia] Ache Medications: Current Medications Acetaminophen (Tylenol) 650 mg PO Q4H PRN PRN Reason: Headache/Fever or Pain Bisacodyl (Dulcolax) 10 mg KS Q24H PRN PRN Reason: Constipation Last Admin: 08/08/17 09:44 Dose: 10 mg Dextrose/Water (Dextrose 50%) 25 gm SLOW IVP PRN PRN PRN Reason: Hypoglycemia Famotidine (Pepcid) 20 mg PO QPM [facility] Last Admin: 08/07/17 22:13 Dose: Not Given Glucagon (Glucagon) 1 mg IM PRN PRN PRN Reason: Hypoglycemia Dextrose/Water (D5w) 1,000 mls @ 0 mls/hr IV .Q0M PRN; As Directed PRN Reason: Hypoglycemia Sodium Chloride (Normal Saline 0.9%) 1,000 mls @ 125 mls/hr IV .Q8H [facility] Last Admin: 08/08/17 05:40 Dose: 1,000 mls Insulin Human Lispro (Humalog) 0 units SC .MILD SLIDING SCALE PRN PRN Reason: Mild Correctional Scale Last Admin: 08/07/17 17:48 Dose: 4 unit Lidocaine (Lidoderm 5% Patch) 1 patch TD DAILY [facility] Last Admin: 08/08/17 09:41 Dose: 1 patch Metoprolol Tartrate (Lopressor) 25 mg PO BID [facility] Last Admin: 08/08/17 09:57 Dose: Not Given Miscellaneous Medication (Lidocaine Patch Removal) 1 each TOP QPM [facility] Last Admin: 08/07/17 21:58 Dose: Not Given Morphine Sulfate (Morphine) 2 mg SLOW IVP Q4H PRN PRN Reason: PAIN 4-6 Morphine Sulfate (Morphine) 4 mg SLOW IVP Q4H PRN PRN Reason: PAIN 7-10 Last Admin: 08/08/17 11:32 Dose: 4 mg Ondansetron HCl (Zofran Odt) 4 mg PO Q6H PRN PRN Reason: Nausea/Vomiting Ondansetron HCl (Zofran) 4 mg IVP Q6H PRN PRN Reason: Nausea/Vomiting Polyethylene Glycol (Miralax) 17 gm PO BID [facility] Last Admin: 08/08/17 09:42 Dose: Not Given Sodium Biphosphate/Sodium Phosphate (Fleet Enema) 133 ml KS DAILY PRN PRN Reason: constipation Tramadol HCl (Ultram) 50 mg PO Q4H PRN PRN Reason: Mild-Moderate Pain (1-5) Tramadol HCl (Ultram) 100 mg PO Q4H PRN PRN Reason: Moderate to Severe Pain (6-10)
[2017-08-08] MEDS: HumaLOG 300 UNITS/3 ML VIAL SC PRN ×2 (17:17→21:50)
--- NOTE | 2017-08-08 18:26 | PRG ---
DATE OF SERVICE: 08/08/2017 SUBJECTIVE: Ms. Bills is still complaining of abdominal pain. She is refusing to eat for her daugh ters and for the nurses. She is afebrile and her vital signs are okay. White count is normal at 9.6 and hematocrit is 32, BUN and creatinine are slightly improved at 25 and 1.41. AST is still mildly elevated at 70. Her incisions are clean. She is diffusely tender. ASSESSMENT: Persistent abdominal pain. At this point, it may be mostly postoperative incisional bronson n, but the patient is really not coherent enough to verbalize any details about what is bothering her . She is passing gas, but still has not had a bowel movement despite oral laxatives, so she is recei ving suppositories and enemas today to see if getting her bowels moving will help with her abdominal complaints. If she does not improve in the next 24 hours or so, I would recommend getting GI involve d.
[2017-08-08] MEDS: Famotidine 20 MG TAB PO SCH (21:37)
[2017-08-08] MEDS: Lidocaine Patch Removal 1 EACH TOP SCH (23:18)
[2017-08-08] MEDS: traMADol HCl 50 MG TAB PO PRN (23:18)
[2017-08-09] MEDS: traMADol HCl 50 MG TAB PO PRN ×2 (03:13→15:47)
[2017-08-09] MEDS: HumaLOG 300 UNITS/3 ML VIAL SC PRN ×4 (06:16→22:17)
[2017-08-09] MEDS: Sodium Chloride 0.9% 1,000 ML IV SCH ×3 (06:16→21:55)
[2017-08-09] MEDS: Polyethylene Glycol 3350 17 GM Packet PO SCH ×2 (09:28→21:45)
[2017-08-09] MEDS: Metoprolol Tartrate 25 MG TAB PO SCH ×2 (09:29→21:55)
[2017-08-09] MEDS: Lidocaine 5% Patch TD SCH (09:35)
[2017-08-09] MEDS ORDERED: Magnesium Citrate 300 ML BOT PO SCH (09:45)
[2017-08-09 10:03] LABS: #Lymphocytes 1.9 thou/uL (1.20-3.40); #Monocytes 0.7 thou/uL (0.11-0.59); %Basophils 0.2 % (0.0-1.0); %Eosinophils 0.5 % (0.0-10.0); %Lymphocytes 25.2 % (21.0-51.0); %Monocytes 8.7 % (0.0-10.0); %Neutrophils 65.4 % (42.0-75.0); Hemoglobin 9.2 g/dL (12.0-16.0); Mean Corpuscular HGB CONC 32.5 g/dL (32.0-36.0); Mean Corpuscular Hemoglobin 31.5 pg (27.0-31.0); Mean Corpuscular Volume 97.1 fl (81.0-99.0); Mean Platelet Volume 6.1 fL (7.4-10.4); Platelet Count 246 thou/uL (130-400); RBC Distribution Width 14.5 % (11.5-14.5); Red Blood Cell (RBC) Count 2.92 mill/uL (4.20-5.40); White Blood Cell (WBC) Count 7.6 thou/uL (4.8-10.8)
[2017-08-09 10:31] LABS: Anion Gap 8 mmol/L (10-20); BUN (Urea Nitrogen) 18 mg/dL (9.8-20.1); Calc. Creatinine Clearance 44 mL/min (70-130); Calcium 7.6 mg/dL (7.8-10.44); Carbon Dioxide 20 mmol/L (23-31); Chloride 114 mmol/L (98-107); Estimated GFR-MDRD 58; Glucose 154 mg/dL (83-110); Potassium 3.1 mmol/L (3.5-5.1); Sodium 139 mmol/L (136-145)
[2017-08-09] MEDS ORDERED: Acetaminophen 325 MG TAB PO PRN (10:48)
[2017-08-09] MEDS ORDERED: HYDROCORTISONE ACETATE 30 MG PR PRN (11:30)
--- NOTE | 2017-08-09 14:49 | PDOC.PN ---
- Subjective Encounter Start Date: 08/09/17 Encounter Start Time: 14:46 Pt seen for followup re: cholecystitis. Denies chest pain, shortness of breath , fevers or chills. - Objective Resuscitation Status: Resuscitation Status FULL:Full Resuscitation MAR Reviewed: Yes Vital Signs & Weight: Vital Signs (12 hours) Temp Pulse Resp BP Pulse Ox 08/09/17 12:56 97.4 F L 61 16 150/81 H 98 08/09/17 08:50 97.4 F L 63 16 158/75 H 95 08/09/17 08:30 97.4 F L 63 16 08/09/17 03:15 97.7 F 64 17 143/82 H 96 Weight Admit Weight 129 lb Weight 129 lb I&O: 08/08/17 08/09/17 08/10/17 06:59 06:59 06:59 Intake Total 500 3420 Output Total 150 Balance 500 3270 Result Diagrams: 08/09/17 09:45 08/09/17 09:45 Additional Labs: Accuchecks 08/09/17 08/09/17 08/08/17 11:11 05:45 20:47 POC Glucose 263 H 213 H 266 H 08/08/17 16:10 POC Glucose 228 H Phys Exam - Physical Examination Constitutional: NAD HEENT: moist MMs Neck: supple Respiratory: clear to auscultation bilateral Cardiovascular: RRR Gastrointestinal: soft Neurological: moves all 4 limbs Psychiatric: normal affect Skin: no rash Deviation from normal: Bruising abdominal wall on R side Dx/Plan (1) Cholecystitis Code(s): K81.9 - CHOLECYSTITIS, UNSPECIFIED Status: Acute Comment: s/p lap felicita during this admission (2) Constipation Code(s): K59.00 - CONSTIPATION, UNSPECIFIED Status: Acute Comment: Magnesium citrate; per nursing staff patient is not eatring much and had three large bowel movements two days ago. (3) Atrial fibrillation Code(s): I48.91 - UNSPECIFIED ATRIAL FIBRILLATION Status: Chronic Qualifiers: Atrial fibrillation type: chronic Qualified Code(s): I48.2 - Chronic atrial fibrillation Comment: rate-controlled (4) Diabetes Code(s): E11.9 - TYPE 2 DIABETES MELLITUS WITHOUT COMPLICATIONS Status: Chronic Qualifiers: Diabetes mellitus type: type 2 Diabetes mellitus group home insulin use: with group home use Diabetes mellitus complication status: with unspecified complications Qualified Code(s): E11.8 - Type 2 diabetes mellitus with unspecified complications; Z79.4 - ad terminal makeup operator (current) use of insulin; Z79.4 - ad terminal makeup operator (current) use of insulin; Z79.4 - ad terminal makeup operator (current) use of insulin; Z79.4 - correction (current) use of insulin Comment: accuchecks, insulin sliding scale (5) Dyslipidemia Code(s): E78.5 - HYPERLIPIDEMIA, UNSPECIFIED Status: Chronic (6) BREE (acute kidney injury) Code(s): N17.9 - ACUTE KIDNEY FAILURE, UNSPECIFIED Status: Resolved Comment : Creatinine 0.93 today - Plan * . Review of Systems - Review of Systems Constitutional: negative: fever, chills, sweats, weakness, malaise Cardiovascular: negative: chest pain, palpitations, orthopnea, paroxysmal nocturnal dyspnea, edema, light headedness - Medications/Allergies Allergies/Adverse Reactions: Allergies Allergy/AdvReac Type Severity Reaction Status Date / Time ciprofloxacin [From Cipro] Allergy Severe ITCHING Verified 07/01/17 17:16 ciprofloxacin HCl Allergy Severe ITCHING Verified 07/01/17 17:16 [From Cipro] Penicillins Allergy Unknown Verified 07/01/17 17:16 sitagliptin phosphate AdvReac Stomach Verified 07/01/17 17:16 [From Januvia] Ache Medications: Current Medications Acetaminophen (Tylenol) 650 mg PO Q4H PRN PRN Reason: Headache/Fever or Pain Last Admin: 08/09/17 06:21 Dose: 650 mg Acetaminophen (Tylenol) 325 mg PO Q4HR PRN PRN Reason: Pain Amiodarone HCl (Cordarone) 200 mg PO DAILY [facility] Atorvastatin Calcium (Lipitor) 20 mg PO HS [facility] Bisacodyl (Dulcolax) 10 mg SD Q24H PRN PRN Reason: Constipation Last Admin: 08/08/17 09:44 Dose: 10 mg Clopidogrel Bisulfate (Plavix) 75 mg PO DAILY [facility] Dextrose/Water (Dextrose 50%) 25 gm SLOW IVP PRN PRN PRN Reason: Hypoglycemia Docusate Sodium (Colace) 100 mg PO BID [facility] Famotidine (Pepcid) 20 mg PO QPM [facility] Last Admin: 08/08/17 21:37 Dose: 20 mg Gabapentin (Neurontin) 100 mg PO BID [facility] Glucagon (Glucagon) 1 mg IM PRN PRN PRN Reason: Hypoglycemia Dextrose/Water (D5w) 1,000 mls @ 0 mls/hr IV .Q0M PRN; As Directed PRN Reason: Hypoglycemia Sodium Chloride (Normal Saline 0.9%) 1,000 mls @ 125 mls/hr IV .Q8H [facility] Last Admin: 08/09/17 06:16 Dose: 1,000 mls Insulin Detemir 10 units/ (Miscellaneous Medication) 0.1 mls @ 0 mls/hr SC BID [facility] Insulin Human Lispro (Humalog) 0 units SC .MILD SLIDING SCALE PRN PRN Reason: Mild Correctional Scale Last Admin: 08/09/17 12:52 Dose: 4 unit Levothyroxine Sodium (Synthroid) 25 mcg PO 0600 [facility] Lidocaine (Lidoderm 5% Patch) 1 patch TD DAILY [facility] Last Admin: 08/09/17 09:35 Dose: 1 patch Metoprolol Tartrate (Lopressor) 25 mg PO BID [facility] Last Admin: 08/09/17 09:29 Dose: 25 mg Miscellaneous Medication (Lidocaine Patch Removal) 1 each TOP QPM [facility] Last Admin: 08/08/17 23:18 Dose: 1 each Morphine Sulfate (Morphine) 2 mg SLOW IVP Q4H PRN PRN Reason: PAIN 4-6 Morphine Sulfate (Morphine) 4 mg SLOW IVP Q4H PRN PRN Reason: PAIN 7-10 Last Admin: 08/08/17 11:32 Dose: 4 mg Multivitamins (Theragran) 1 tab PO DAILY [facility] Ondansetron HCl (Zofran Odt) 4 mg PO Q6H PRN PRN Reason: Nausea/Vomiting Ondansetron HCl (Zofran) 4 mg IVP Q6H PRN PRN Reason: Nausea/Vomiting Hydrocortisone Acetate [Proctocort] 30 Mg 0 each SD BID PRN PRN Reason: Pain Polyethylene Glycol (Miralax) 17 gm PO BID [facility] Last Admin: 08/09/17 09:28 Dose: 17 gm Senna (Senokot) 1 tab PO DAILY [facility] Sodium Biphosphate/Sodium Phosphate (Fleet Enema) 133 ml SD DAILY PRN PRN Reason: constipation Last Admin: 08/08/17 15:06 Dose: 133 ml Tizanidine HCl (Zanaflex) 4 mg PO TID [facility] Tramadol HCl (Ultram) 50 mg PO Q4H PRN PRN Reason: Mild-Moderate Pain (1-5) Last Admin: 08/08/17 23:18 Dose: 50 mg Tramadol HCl (Ultram) 100 mg PO Q4H PRN PRN Reason: Moderate to Severe Pain (6-10) Last Admin: 08/09/17 03:13 Dose: 100 mg
[2017-08-09] MEDS: tiZANidine HCl 4 MG TAB PO SCH ×2 (15:04→21:55)
--- NOTE | 2017-08-09 15:22 | PQF ---
BETTIE MIMS DAVID [id number] [facility] A 3331 [id number] CLINICAL DOCUMENTATION IMPROVEMENT CLARIFICATION FORM: ICD-10 Updated PLEASE DO AN ADDENDUM TO THE PROGRESS NOTE WITH ANY DOCUMENTATION UPDATES OR ADDITIONS AND CARRY THROUGH TO DC SUMMARY. THANK YOU. DATE: 08-09-17 ATTN: DR. LOZANO Please exercise your independent, professional judgment in responding to the clarification form. Clinical indicators are provided on the bottom of this form for your review Please check appropriate box(s): ____X___ I (concur) with NURSING findings as stated below. Please specify below if POA [ ] Pressure Ulcer: (Stage I: Erythema; Stage II: Partial thickness; Stage III : Full thickness; Stage IV: Necrosis to muscle/bone) [ ] Location: POA: [ ] Yes [ ] No [ ] Unable to determine Stage (I to IV): (Left Right Bilateral N/A ) [ ] Location: POA: [ ] Yes [ ] No [ ] Unable to determine Stage (I to IV): (Left Right Bilateral N/A ) [ ] Location: POA: [ ] Yes [ ] No [ ] Unable to determine Stage (I to IV): (Left Right Bilateral N/A ) [ ] No pressure ulcer diagnosis [ ] Deep tissue injury [ ] Other diagnosis [ ] Unable to determine In addition, please specify: Present on Admission (POA): [ X ] Yes [ ] No [ ] Unable to determine For continuity of documentation, please document condition throughout progress notes and discharge summary. Thank You. CLINICAL INDICATORS - SIGNS / SYMPTOMS / LABS ER: BLANCHABLE TO BUTTOCKS NURSING ASSESSMENT 4-16 STAGE 2 PU COCCYX RISK FACTORS: H&P: JUNE 2017 LUMBAR SURGERY AND DC'D TO REHAB - DC'D FROM REHAB 3 DAYS AGO IDDM TYPE 2 TREATMENTS: NURSING NOTE 4-16 ENCOURAGE TURNING AND AMBULATION - NURSING TO ASSIST DIAPER CHANGED FREQUENTLY - INCONT OF URINE MEPILEX TO SITE AIR MATTRESS TO BED THANK YOU, JEN (This form is maintained as a part of the permanent medical record) 2015 [employer]. All Rights Reserved Jen Staley RN, BS [email or web address]
--- NOTE | 2017-08-09 17:21 | PDOC.GSPN ---
Surgery Progress Note: Subj - Subjective Narrative: Patient still hasn't had a bowel movement but is eating better today. She is much more alert and interactive than I have seen her before. She just finished drinking mag citrate and has been ambulating short distances. Incisions look good and she is less tender to palpation today. No fevers. Assessment/plan: Status post laparoscopic cholecystectomy doing well from her operation. She is less tender and more mobile today and much more alert. She is receiving continued treatment for her severe constipation. She is doing better in terms of her oral intake. No new recommendations. Surgery Progress Note: Obj - Vital signs Vital signs: Vital Signs - Most Recent Temp Pulse Resp BP Pulse Ox 97.4 F L 61 16 150/81 H 98 08/09/17 12:56 08/09/17 12:56 08/09/17 12:56 08/09/17 12:56 08/09/17 12:56 Surgery Progress Note: Results - Labs Result Diagrams: 08/09/17 09:45 08/09/17 09:45 Lab results: Laboratory Results - last 24 hr 08/09/17 08/09/17 08/09/17 05:45 09:45 09:45 WBC 7.6 RBC 2.92 L Hgb 9.2 L Hct 28.4 L MCV 97.1 MCH 31.5 H MCHC 32.5 RDW 14.5 Plt Count 246 MPV 6.1 L Neutrophils % 65.4 Lymphocytes % 25.2 Monocytes % 8.7 Eosinophils % 0.5 Basophils % 0.2 Neutrophils # 5.0 Lymphocytes # 1.9 Monocytes # 0.7 H Eosinophils # 0.0 Basophils # 0.0 Sodium 139 Potassium 3.1 L Chloride 114 H Carbon Dioxide 20 L Anion Gap 8 L BUN 18 Creatinine 0.93 Estimated GFR (MDRD) 58 Glucose 154 H POC Glucose 213 H Calcium 7.6 L 08/09/17 08/09/17 11:11 16:25 WBC RBC Hgb Hct MCV MCH MCHC RDW Plt Count MPV Neutrophils % Lymphocytes % Monocytes % Eosinophils % Basophils % Neutrophils # Lymphocytes # Monocytes # Eosinophils # Basophils # Sodium Potassium Chloride Carbon Dioxide Anion Gap BUN Creatinine Estimated GFR (MDRD) Glucose POC Glucose 263 H 229 H Calcium
[2017-08-09] MEDS ORDERED: Metoprolol Tartrate 50 MG TAB PO SCH (21:00)
[2017-08-09] MEDS: Insulin Detemir 100 UNITS/ML 10 UNITS in Pre-Filled Syringe 1 EACH SC SCH (21:54)
[2017-08-09] MEDS: Lidocaine Patch Removal 1 EACH TOP SCH (21:55)
[2017-08-09] MEDS: Atorvastatin Calcium 20 MG TAB PO SCH (21:55)
[2017-08-09] MEDS: Famotidine 20 MG TAB PO SCH (21:55)
[2017-08-09] MEDS: Gabapentin 100 MG CAP PO SCH (21:55)
[2017-08-09] MEDS: Docusate 100 MG CAP PO SCH (21:56)
[2017-08-10 05:51] LABS: #Lymphocytes 1.4 thou/uL (1.20-3.40); #Monocytes 0.2 thou/uL (0.11-0.59); #Neutrophils 1.6 thou/uL (1.40-6.50); %Basophils 0.5 % (0.0-1.0); %Eosinophils 0.9 % (0.0-10.0); %Lymphocytes 43.3 % (21.0-51.0); %Monocytes 6.9 % (0.0-10.0); %Neutrophils 48.4 % (42.0-75.0); Hemoglobin 8.1 g/dL (12.0-16.0); Mean Corpuscular HGB CONC 33.8 g/dL (32.0-36.0); Mean Corpuscular Volume 94.9 fl (81.0-99.0); Mean Platelet Volume 6.3 fL (7.4-10.4); Platelet Count 142 thou/uL (130-400); RBC Distribution Width 14.6 % (11.5-14.5); Red Blood Cell (RBC) Count 2.52 mill/uL (4.20-5.40); White Blood Cell (WBC) Count 3.3 thou/uL (4.8-10.8)
[2017-08-10 05:53] LABS: Anion Gap 7 mmol/L (10-20); BUN (Urea Nitrogen) 18 mg/dL (9.8-20.1); Calc. Creatinine Clearance 49 mL/min (70-130); Calcium 8.7 mg/dL (7.8-10.44); Carbon Dioxide 26 mmol/L (23-31); Chloride 109 mmol/L (98-107); Estimated GFR-MDRD 65; Glucose 89 mg/dL (83-110); Potassium 3.6 mmol/L (3.5-5.1); Sodium 138 mmol/L (136-145)
[2017-08-10] MEDS: Sodium Chloride 0.9% 1,000 ML IV SCH ×2 (05:55→08:36)
[2017-08-10] MEDS: Levothyroxine Sodium 25 MCG TAB PO SCH (05:55)
[2017-08-10] MEDS: Docusate 100 MG CAP PO SCH ×2 (08:30→21:29)
[2017-08-10] MEDS: Polyethylene Glycol 3350 17 GM Packet PO SCH ×2 (08:30→21:30)
[2017-08-10] MEDS: Senokot 8.6 MG TAB PO SCH (08:30)
[2017-08-10] MEDS: Lidocaine 5% Patch TD SCH (08:34)
[2017-08-10] MEDS: Gabapentin 100 MG CAP PO SCH ×2 (08:36→21:29)
[2017-08-10] MEDS: Multivit, Therapeutic 1 TAB PO SCH (08:36)
[2017-08-10] MEDS: Metoprolol Tartrate 25 MG TAB PO SCH ×2 (08:49→21:29)
[2017-08-10] MEDS: Insulin Detemir 100 UNITS/ML 10 UNITS in Pre-Filled Syringe 1 EACH SC SCH ×2 (09:44→21:29)
[2017-08-10] MEDS: Amiodarone 200 MG TAB PO SCH (09:45)
[2017-08-10] MEDS: tiZANidine HCl 4 MG TAB PO SCH ×3 (09:45→21:29)
--- NOTE | 2017-08-10 13:30 | CT ---
CT ABDOMEN AND PELVIS WITHOUT CONTRAST: History: Post op anemia. Cholecystectomy. Abdominal pain. Comparison: CT abdomen/pelvis 08-06-17. FINDINGS: There is mild atelectasis in the lung bases. New moderate sized bilateral pleural effusions. Small vo lume free fluid in the pelvis. There is worsening third spacing of the skin and superficial soft tiss ues. No hemorrhage is seen within the abdomen. Moderate sized sliding hiatal hernia. Recent cholecyst ectomy. No evidence of post-surgical complication. Moderate diverticular disease in the sigmoid colon without active inflammation. No retroperitoneal he morrhage. Moderate degenerative changes lower lumbar spine. IMPRESSION: 1. No evidence for post-surgical complication. Recent cholecystectomy. 2. No hemorrhage in the abdomen or pelvis. 3. Worsening third spacing of fluid with bilateral moderate sized layering pleural effusions as well skin thickening and superficial soft tissue edema. 4. Small amount of fluid in the pelvis, likely post-surgical in nature or a collection of third spaci ng of fluid. POS: [facility]
--- NOTE | 2017-08-10 13:48 | CT ---
CT BRAIN PERFORMED WITHOUT CONTRAST ENHANCEMENT: HISTORY: Right-sided weakness with confusion. COMPARISON: CT examination from 06/19/2017. FINDINGS: There is mild generalized ventricular and sulcal prominence. 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 There are some other areas that suggest some s maller lacunar infarcts. No intraaxial or extraaxial mass or hemorrhage. IMPRESSION: No acute intracranial abnormality. Stable exam. Findings telephoned to the CCU at 1152 hours. CODE CR POS: [facility]
[2017-08-10 13:58] LABS: #Basophils 0.1 thou/uL (0.0-0.2); #Eosinphils 0.1 thou/uL (0.0-0.7); #Lymphocytes 2.2 thou/uL (1.20-3.40); #Monocytes 0.6 thou/uL (0.11-0.59); #Neutrophils 2.9 thou/uL (1.40-6.50); %Basophils 1.1 % (0.0-1.0); %Eosinophils 1.2 % (0.0-10.0); %Lymphocytes 38.1 % (21.0-51.0); %Monocytes 9.7 % (0.0-10.0); %Neutrophils 49.9 % (42.0-75.0); Hemoglobin 6.3 g/dL (12.0-16.0); Mean Corpuscular HGB CONC 32.9 g/dL (32.0-36.0); Mean Corpuscular Hemoglobin 32.7 pg (27.0-31.0); Mean Corpuscular Volume 99.3 fl (81.0-99.0); Mean Platelet Volume 6.6 fL (7.4-10.4); Platelet Count 191 thou/uL (130-400); RBC Distribution Width 14.5 % (11.5-14.5); Red Blood Cell (RBC) Count 1.91 mill/uL (4.20-5.40); White Blood Cell (WBC) Count 5.8 thou/uL (4.8-10.8)
[2017-08-10 14:18] LABS: Lactic Acid 1.5 mmol/L (0.5-2.2)
[2017-08-10 14:32] LABS: Troponin I 0.014 ng/mL (< 0.028)
[2017-08-10 14:33] LABS: ALT (SGPT) 42 U/L (8-55); AST (SGOT) 57 U/L (5-34); Albumin 2.5 g/dL (3.4-4.8); Alkaline Phosphatase 90 U/L (40-150); Anion Gap 10 mmol/L (10-20); BUN (Urea Nitrogen) 16 mg/dL (9.8-20.1); Bilirubin, Total 0.6 mg/dL (0.2-1.2); Calc. Creatinine Clearance 45 mL/min (70-130); Calcium 9.1 mg/dL (7.8-10.44); Carbon Dioxide 20 mmol/L (23-31); Chloride 107 mmol/L (98-107); Estimated GFR-MDRD 60; Globulin 3.2 g/dL (2.4-3.5); Glucose 112 mg/dL (83-110); Potassium 4.1 mmol/L (3.5-5.1); Protein, Total 5.7 g/dL (6.0-8.3); Sodium 133 mmol/L (136-145)
--- NOTE | 2017-08-10 14:34 | CT ---
CT ANGIOGRAM HEAD CT ANGIOGRAM NECK: Date: 08/10/17 HISTORY: Right-sided weakness. Confusion. COMPARISON: None. TECHNIQUE: CT angiogram head and neck performed after the intravenous administration of contrast. 3D rendering i s provided. FINDINGS: There is a large right and moderate left-sided pleural effusion. Visualized portions of the aortic ar ch and pulmonary trunk appear relatively unremarkable. Mild degenerative changes of the cervical spin e with facet arthropathy. Posterior disc osteophyte complexes are seen. C5-6 and C6-7 mild narrowing of the spinal canal. There is a right M1 occlusion for a length of 7.0 mm with some distal flow to M2, M3, and M4, which i s asymmetrically decreased to the left. According to the charge nurse, there are no localizing sympto ms. This may be chronic. The ACAs and spray drier are patent. The basilar artery is patent. Left vertebral is dominant. Both vertebral arteries are patent. Using NASCET criteria, no hemodynamically significant stenosis of the internal carotid arteries. Foca l area of approximately 40% stenosis proximal left internal carotid artery due to calcific plaque. No significant adenopathy. Orbits are unremarkable. IMPRESSION: 1. 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 There is distal vas cular flow in M2, M3, and M4. Remainder of the vessels of the [place] are patent. 2. Approximately 50% stenosis proximal left internal carotid artery just past the carotid bulb for a length of 6.0 mm due to calcific and soft plaque. 3. Patent vertebral arteries with dominant left vertebral artery. 4. Patent dural venous sinuses. 5. Layering bilateral effusions, larger on the right. Charge nurse, Saige, notified of the findings at 1240 hours. CODE CR. POS: [facility]
[2017-08-10] MEDS: Clopidogrel Bisulfate 75 MG TAB PO SCH (14:56)
[2017-08-10 15:03] LABS: Bilirubin Negative (Negative); Blood, Urine Negative (Negative); Clarity CLEAR (Clear); Glucose, Urine (Dipstick) Negative (Negative); Leukocyte Trace (Negative); Nitrite Negative (Negative); Protein, Urine (Dipstick) Negative (Neg-Trace); Specific Gravity, Urine 1.022 (1.002-1.036); Urobilinogen 0.2 mg/dL (0.2-1.0); pH, Urine 6.5 (5.0-9.0)
[2017-08-10 15:05] LABS: Bacteria/HPF None Seen HPF (None Seen); Hyaline Casts/LPF 0-3 HYALINE CAST LPF (0-3 Hyaline); Pathc Cast-AUWi Flag 0.14 (0-2.49); RBC/HPF 0-3 HPF (0-3); Squamous Epithelial 0-3 HPF (0-3); WBC/HPF 0-3 HPF (0-3)
[2017-08-10 15:07] LABS: Hemoglobin 9.6 g/dL (12.0-16.0)
--- NOTE | 2017-08-10 15:16 | PDOC.PN ---
- Subjective Encounter Start Date: 08/10/17 Encounter Start Time: 15:15 Pt seen for followup re: acute encephalopathy. Started earlier today after returning from CT abdo/ pelvis. lethargic, opening eyes and answering a few questions but not consistently. Could not complete ROS. - Objective Resuscitation Status: Resuscitation Status FULL:Full Resuscitation MAR Reviewed: Yes Vital Signs & Weight: Vital Signs (12 hours) Temp Pulse Pulse Pulse Pulse Resp Resp 08/10/17 11:58 97.1 F L 62 16 08/10/17 11:33 61 61 64 18 08/10/17 08:00 97.2 F L 68 14 08/10/17 07:01 97.2 F L 68 14 08/10/17 04:00 98.3 F 62 18 Resp Resp BP BP BP BP Pulse Ox 08/10/17 11:58 112/72 96 08/10/17 11:33 16 18 112/72 129/77 126/57 L 08/10/17 08:00 96 08/10/17 07:01 102/62 96 08/10/17 04:00 103/65 94 L Pulse Ox Pulse Ox Pulse Ox 08/10/17 11:58 08/10/17 11:33 95 95 95 08/10/17 08:00 08/10/17 07:01 08/10/17 04:00 Weight Admit Weight 129 lb Weight 129 lb I&O: 08/09/17 08/10/17 08/11/17 06:59 06:59 06:59 Intake Total 3420 3860 Output Total 150 426 Balance 3270 3434 Result Diagrams: 08/10/17 14:52 08/10/17 13:42 Additional Labs: Accuchecks 08/10/17 08/10/17 08/09/17 11:37 06:15 20:39 POC Glucose 147 H 129 H 234 H 08/09/17 16:25 POC Glucose 229 H Phys Exam - Physical Examination Constitutional: NAD HEENT: moist MMs Neck: supple Respiratory: clear to auscultation bilateral Cardiovascular: RRR Gastrointestinal: soft Neurological: moves all 4 limbs Power 4/5 in all four extremities Psychiatric: normal affect Skin: no rash Dx/Plan (1) Acute encephalopathy Code(s): G93.40 - ENCEPHALOPATHY, UNSPECIFIED Status: Acute Comment: etiology unclear. Stroke alert was called but no evidence of an acute stroke. Hb was found to be low but likely spurious, will recheck hemoglobin. Awaiting urine studies. (2) Cholecystitis Code(s): K81.9 - CHOLECYSTITIS, UNSPECIFIED Status: Acute Comment: s/p lap felicita (3) Cholelithiasis Code(s): K80.20 - CALCULUS OF GALLBLADDER W/O CHOLECYSTITIS W/O OBSTRUCTION Status: Acute Comment: s/p lap felicita (4) Atrial fibrillation Code(s): I48.91 - UNSPECIFIED ATRIAL FIBRILLATION Status: Chronic Qualifiers: Atrial fibrillation type: chronic Qualified Code(s): I48.2 - Chronic atrial fibrillation Comment: rate-controlled (5) Diabetes Code(s): E11.9 - TYPE 2 DIABETES MELLITUS WITHOUT COMPLICATIONS Status: Chronic Qualifiers: Diabetes mellitus type: type 2 Diabetes mellitus senior care insulin use: with senior care use Diabetes mellitus complication status: with unspecified complications Qualified Code(s): E11.8 - Type 2 diabetes mellitus with unspecified complications; Z79.4 - correction (current) use of insulin; Z79.4 - correction (current) use of insulin; Z79.4 - long term acute care registered nurse (current) use of insulin; Z79.4 - long term acute care registered nurse (current) use of insulin Comment: accuchecks, insulin sliding scale (6) Dyslipidemia Code(s): E78.5 - HYPERLIPIDEMIA, UNSPECIFIED Status: Chronic (7) BREE (acute kidney injury) Code(s): N17.9 - ACUTE KIDNEY FAILURE, UNSPECIFIED Status: Resolved (8) Constipation Code(s): K59.00 - CONSTIPATION, UNSPECIFIED Status: Resolved Comment: Pt had bowel movements yesterday - Plan * . Review of Systems - Medications/Allergies Allergies/Adverse Reactions: Allergies Allergy/AdvReac Type Severity Reaction Status Date / Time ciprofloxacin [From Cipro] Allergy Severe ITCHING Verified 07/01/17 17:16 ciprofloxacin HCl Allergy Severe ITCHING Verified 07/01/17 17:16 [From Cipro] Penicillins Allergy Unknown Verified 07/01/17 17:16 sitagliptin phosphate AdvReac Stomach Verified 07/01/17 17:16 [From Januvia] Ache Medications: Current Medications Acetaminophen (Tylenol) 650 mg PO Q4H PRN PRN Reason: Headache/Fever or Pain Last Admin: 08/09/17 06:21 Dose: 650 mg Acetaminophen (Tylenol) 325 mg PO Q4HR PRN PRN Reason: Pain Amiodarone HCl (Cordarone) 200 mg PO DAILY [facility] Last Admin: 08/10/17 09:45 Dose: 200 mg Atorvastatin Calcium (Lipitor) 20 mg PO HS [facility] Last Admin: 08/09/17 21:55 Dose: 20 mg Bisacodyl (Dulcolax) 10 mg HI Q24H PRN PRN Reason: Constipation Last Admin: 08/08/17 09:44 Dose: 10 mg Clopidogrel Bisulfate (Plavix) 75 mg PO DAILY [facility] Last Admin: 08/10/17 14:56 Dose: Not Given Dextrose/Water (Dextrose 50%) 25 gm SLOW IVP PRN PRN PRN Reason: Hypoglycemia Docusate Sodium (Colace) 100 mg PO BID [facility] Last Admin: 08/10/17 08:30 Dose: Not Given Famotidine (Pepcid) 20 mg PO QPM [facility] Last Admin: 08/09/17 21:55 Dose: 20 mg Gabapentin (Neurontin) 100 mg PO BID [facility] Last Admin: 08/10/17 08:36 Dose: 100 mg Glucagon (Glucagon) 1 mg IM PRN PRN PRN Reason: Hypoglycemia Dextrose/Water (D5w) 1,000 mls @ 0 mls/hr IV .Q0M PRN; As Directed PRN Reason: Hypoglycemia Insulin Detemir 10 units/ (Miscellaneous Medication) 0.1 mls @ 0 mls/hr SC BID [facility] Last Admin: 08/10/17 09:44 Dose: 0.1 mls Sodium Chloride (Normal Saline 0.9%) 1,000 mls @ 50 mls/hr IV .Q20H [facility] Last Admin: 08/10/17 08:36 Dose: 1,000 mls Insulin Human Lispro (Humalog) 0 units SC .MILD SLIDING SCALE PRN PRN Reason: Mild Correctional Scale Last Admin: 08/09/17 22:17 Dose: 3 unit Levothyroxine Sodium (Synthroid) 25 mcg PO 0600 [facility] Last Admin: 08/10/17 05:55 Dose: 25 mcg Lidocaine (Lidoderm 5% Patch) 1 patch TD DAILY [facility] Last Admin: 08/10/17 08:34 Dose: 1 patch Metoprolol Tartrate (Lopressor) 25 mg PO BID [facility] Last Admin: 08/10/17 08:49 Dose: Not Given Miscellaneous Medication (Lidocaine Patch Removal) 1 each TOP QPM [facility] Last Admin: 08/09/17 21:55 Dose: 1 each Morphine Sulfate (Morphine) 2 mg SLOW IVP Q4H PRN PRN Reason: PAIN 4-6 Morphine Sulfate (Morphine) 4 mg SLOW IVP Q4H PRN PRN Reason: PAIN 7-10 Last Admin: 08/08/17 11:32 Dose: 4 mg Multivitamins (Theragran) 1 tab PO DAILY [facility] Last Admin: 08/10/17 08:36 Dose: 1 tab Ondansetron HCl (Zofran Odt) 4 mg PO Q6H PRN PRN Reason: Nausea/Vomiting Ondansetron HCl (Zofran) 4 mg IVP Q6H PRN PRN Reason: Nausea/Vomiting Hydrocortisone Acetate [Proctocort] 30 Mg 0 each HI BID PRN PRN Reason: Pain Polyethylene Glycol (Miralax) 17 gm PO BID [facility] Last Admin: 08/10/17 08:30 Dose: Not Given Senna (Senokot) 1 tab PO DAILY [facility] Last Admin: 08/10/17 08:30 Dose: Not Given Sodium Biphosphate/Sodium Phosphate (Fleet Enema) 133 ml HI DAILY PRN PRN Reason: constipation Last Admin: 08/08/17 15:06 Dose: 133 ml Tizanidine HCl (Zanaflex) 4 mg PO TID [facility] Last Admin: 08/10/17 14:56 Dose: Not Given Tramadol HCl (Ultram) 50 mg PO Q4H PRN PRN Reason: Mild-Moderate Pain (1-5) Last Admin: 08/09/17 15:47 Dose: 50 mg Tramadol HCl (Ultram) 100 mg PO Q4H PRN PRN Reason: Moderate to Severe Pain (6-10) Last Admin: 08/09/17 03:13 Dose: 100 mg
--- NOTE | 2017-08-10 15:25 | PDOC.GSPN ---
Surgery Progress Note: Subj - Subjective Narrative: Patient is quite groggy today, although she does wake up and converse briefly. She is not as alert as she was yesterday. Her H&H this morning was slightly lower than yesterday so I ordered a repeat CT of the abdomen and pelvis. This did not reveal any evidence of significant intra-abdominal bleeding or hematoma , although there was some swelling at the lateral abdominal muscles on the right where her bruising is. Her nurse reports that after she got back from CT scan she became briefly unresponsive although she would react to painful stimuli. Stroke alert was initiated and a head CT was done which was unremarkable. Initial lab work showed a significant drop in her H&H but on recheck it was slightly higher than her H&H this morning. Her abdominal exam is stable. Assessment/plan: Acute mental status change earlier today of unclear etiology. Seems to be returning slowly to her baseline. No intra-abdominal bleeding on CT scan. She was eating better up until her episode. No new surgical recommendations. Her renal function is back to normal but her family requested that I notify Dr. Perez of her admission since they missed her appointment with him last week. Surgery Progress Note: Obj - Vital signs Vital signs: Vital Signs - Most Recent Temp Pulse Resp BP Pulse Ox 97.1 F L 62 16 112/72 96 08/10/17 11:58 08/10/17 11:58 08/10/17 11:58 08/10/17 11:58 08/10/17 11:58 Surgery Progress Note: Results - Labs Result Diagrams: 08/10/17 14:52 08/10/17 13:42 Lab results: Laboratory Results - last 24 hr 08/10/17 08/10/17 08/10/17 04:37 04:37 06:15 WBC 3.3 L RBC 2.52 L Hgb 8.1 L Hct 23.9 L MCV 94.9 MCH 32.0 H MCHC 33.8 RDW 14.6 H Plt Count 142 MPV 6.3 L Neutrophils % 48.4 Lymphocytes % 43.3 Monocytes % 6.9 Eosinophils % 0.9 Basophils % 0.5 Neutrophils # 1.6 Lymphocytes # 1.4 Monocytes # 0.2 Eosinophils # 0.0 Basophils # 0.0 Sodium 138 Potassium 3.6 Chloride 109 H Carbon Dioxide 26 Anion Gap 7 L BUN 18 Creatinine 0.84 Estimated GFR (MDRD) 65 Glucose 89 POC Glucose 129 H Lactic Acid Calcium 8.7 Total Bilirubin AST ALT Alkaline Phosphatase Troponin I Serum Total Protein Albumin Globulin Albumin/Globulin Ratio Urine Color Urine Clarity Urine pH Ur Specific [place] Urine Protein Urine Glucose (UA) Urine Ketones Urine Blood Urine Nitrite Urine Bilirubin Urine Urobilinogen Ur Leukocyte Esterase Urine RBC Urine WBC Ur Squamous Epith Cells Urine Bacteria Hyaline Casts 08/10/17 08/10/17 08/10/17 11:37 13:42 13:42 WBC RBC Hgb Hct MCV MCH MCHC RDW Plt Count MPV Neutrophils % Lymphocytes % Monocytes % Eosinophils % Basophils % Neutrophils # Lymphocytes # Monocytes # Eosinophils # Basophils # Sodium 133 L Potassium 4.1 Chloride 107 Carbon Dioxide 20 L Anion Gap 10 BUN 16 Creatinine 0.90 Estimated GFR (MDRD) 60 Glucose 112 H POC Glucose 147 H Lactic Acid Calcium 9.1 Total Bilirubin 0.6 AST 57 H ALT 42 Alkaline Phosphatase 90 Troponin I 0.014 Serum Total Protein 5.7 L Albumin 2.5 L Globulin 3.2 Albumin/Globulin Ratio 0.8 L Urine Color Urine Clarity Urine pH Ur Specific [place] Urine Protein Urine Glucose (UA) Urine Ketones Urine Blood Urine Nitrite Urine Bilirubin Urine Urobilinogen Ur Leukocyte Esterase Urine RBC Urine WBC Ur Squamous Epith Cells Urine Bacteria Hyaline Casts 08/10/17 08/10/17 08/10/17 13:42 13:42 14:45 WBC 5.8 RBC 1.91 L Hgb 6.3 L Hct 19.0 L MCV 99.3 H MCH 32.7 H MCHC 32.9 RDW 14.5 Plt Count 191 MPV 6.6 L Neutrophils % 49.9 Lymphocytes % 38.1 Monocytes % 9.7 Eosinophils % 1.2 Basophils % 1.1 H Neutrophils # 2.9 Lymphocytes # 2.2 Monocytes # 0.6 H Eosinophils # 0.1 Basophils # 0.1 Sodium Potassium Chloride Carbon Dioxide Anion Gap BUN Creatinine Estimated GFR (MDRD) Glucose POC Glucose Lactic Acid 1.5 Calcium Total Bilirubin AST ALT Alkaline Phosphatase Troponin I Serum Total Protein Albumin Globulin Albumin/Globulin Ratio Urine Color YELLOW Urine Clarity CLEAR Urine pH 6.5 Ur Specific [place] 1.022 Urine Protein Negative Urine Glucose (UA) Negative Urine Ketones Negative Urine Blood Negative Urine Nitrite Negative Urine Bilirubin Negative Urine Urobilinogen 0.2 Ur Leukocyte Esterase Trace H Urine RBC 0-3 Urine WBC 0-3 Ur Squamous Epith Cells 0-3 Urine Bacteria None Seen Hyaline Casts 0-3 HYALINE CAST 08/10/17 14:52 WBC RBC Hgb 9.6 L Hct 29.1 L MCV MCH MCHC RDW Plt Count MPV Neutrophils % Lymphocytes % Monocytes % Eosinophils % Basophils % Neutrophils # Lymphocytes # Monocytes # Eosinophils # Basophils # Sodium Potassium Chloride Carbon Dioxide Anion Gap BUN Creatinine Estimated GFR (MDRD) Glucose POC Glucose Lactic Acid Calcium Total Bilirubin AST ALT Alkaline Phosphatase Troponin I Serum Total Protein Albumin Globulin Albumin/Globulin Ratio Urine Color Urine Clarity Urine pH Ur Specific [place] Urine Protein Urine Glucose (UA) Urine Ketones Urine Blood Urine Nitrite Urine Bilirubin Urine Urobilinogen Ur Leukocyte Esterase Urine RBC Urine WBC Ur Squamous Epith Cells Urine Bacteria Hyaline Casts
[2017-08-10] MEDS ORDERED: Iopamidol 370 76% 100 ML VIAL ONE (16:09)
[2017-08-10 17:52] LABS: Troponin I 0.012 ng/mL (< 0.028)
[2017-08-10 20:19] LABS: Hemoglobin 10.1 g/dL (12.0-16.0)
--- NOTE | 2017-08-10 20:27 | RAD ---
AP VIEW OF THE CHEST: 08/10/17 INDICATION: Rule out pulmonary infiltrates. COMPARISON: Prior exam dated 07/06/13. FINDINGS: No focal consolidation is evident. Heart size and pulmonary vasculature are within normal limits whe n taking into account the exam technique. There is a right sided dual lead pacemaker overlying the ri ght chest wall that is unchanged in position. Scattered degenerative changes are similar appearing. V ascular calcifications again seen involving the aortic arch. IMPRESSION: No acute abnormality. POS: [facility]
[2017-08-10 20:50] LABS: Troponin I 0.024 ng/mL (< 0.028)
[2017-08-10] MEDS: Famotidine 20 MG TAB PO SCH (21:29)
[2017-08-10] MEDS: Atorvastatin Calcium 20 MG TAB PO SCH (21:29)
[2017-08-10] MEDS: Lidocaine Patch Removal 1 EACH TOP SCH (21:30)
[2017-08-11 01:54] LABS: Hemoglobin 8.9 g/dL (12.0-16.0)
[2017-08-11 04:35] LABS: Anion Gap 6 mmol/L (10-20); BUN (Urea Nitrogen) 13 mg/dL (9.8-20.1); Calc. Creatinine Clearance 49 mL/min (70-130); Calcium 9.4 mg/dL (7.8-10.44); Carbon Dioxide 28 mmol/L (23-31); Chloride 106 mmol/L (98-107); Estimated GFR-MDRD 65; Glucose 77 mg/dL (83-110); Potassium 3.9 mmol/L (3.5-5.1); Sodium 136 mmol/L (136-145)
[2017-08-11 04:40] LABS: #Eosinphils 0.1 thou/uL (0.0-0.7); #Lymphocytes 1.3 thou/uL (1.20-3.40); #Monocytes 0.3 thou/uL (0.11-0.59); #Neutrophils 2.3 thou/uL (1.40-6.50); %Basophils 0.5 % (0.0-1.0); %Eosinophils 1.3 % (0.0-10.0); %Monocytes 7.7 % (0.0-10.0); %Neutrophils 57.5 % (42.0-75.0); Mean Corpuscular HGB CONC 33.9 g/dL (32.0-36.0); Mean Corpuscular Hemoglobin 31.9 pg (27.0-31.0); Mean Platelet Volume 6.4 fL (7.4-10.4); Platelet Count 156 thou/uL (130-400); RBC Distribution Width 14.2 % (11.5-14.5); Red Blood Cell (RBC) Count 2.83 mill/uL (4.20-5.40); White Blood Cell (WBC) Count 4.1 thou/uL (4.8-10.8)
[2017-08-11] MEDS: Levothyroxine Sodium 25 MCG TAB PO SCH (05:39)
[2017-08-11] MEDS: Sodium Chloride 0.9% 1,000 ML IV SCH (05:39)
[2017-08-11] MEDS: tiZANidine HCl 4 MG TAB PO SCH (09:05)
[2017-08-11] MEDS: Senokot 8.6 MG TAB PO SCH (09:05)
[2017-08-11] MEDS: Clopidogrel Bisulfate 75 MG TAB PO SCH (09:06)
[2017-08-11] MEDS: Docusate 100 MG CAP PO SCH (09:06)
[2017-08-11] MEDS: Metoprolol Tartrate 25 MG TAB PO SCH (09:06)
[2017-08-11] MEDS: Multivit, Therapeutic 1 TAB PO SCH (09:06)
[2017-08-11] MEDS: Gabapentin 100 MG CAP PO SCH (09:06)
[2017-08-11] MEDS: Amiodarone 200 MG TAB PO SCH (09:06)
[2017-08-11] MEDS: Insulin Detemir 100 UNITS/ML 10 UNITS in Pre-Filled Syringe 1 EACH SC SCH (09:08)
[2017-08-11] MEDS: Polyethylene Glycol 3350 17 GM Packet PO SCH (09:09)
[2017-08-11 11:09] VITALS: BP 134/73; TEMP 97.3
--- NOTE | 2017-08-11 11:18 | DIS ---
DATE OF ADMISSION: 08/06/2017 DATE OF DISCHARGE: 08/11/2017 PRIMARY CARE PHYSICIAN: Chato Scales M.D. DISCHARGE DIAGNOSES: 1. Acute cholecystitis. 2. Cholelithiasis. 3. Acute encephalopathy. 4. Physical deconditioning. CONDITION OF PATIENT ON THE DAY OF DISCHARGE: Stable. I assessed Ms. Bills on the day of discharge . She denies any chest pain or shortness of breath. PHYSICAL EXAMINATION: VITAL SIGNS: Stable. S1 and S2 are heard, regular. LUNGS: Clear to auscultation bilaterally. DISCHARGE MEDICATIONS: Acetaminophen 325 mg every 4 hours as needed, amiodarone 200 mg daily, Plavix 75 mg daily, Colace 100 mg 2 times a day, gabapentin 100 mg 2 times a day, Proctocort p.r.n., Levemi r 10 units 2 times a day, levothyroxine 25 mcg daily, lidocaine 5% patch daily, metoprolol tartrate 2 5 mg 2 times a day, multivitamins 1 capsule daily, Senokot 1 tablet daily, Zocor 40 mg at bedtime, Fl eet enema daily as needed, tizanidine 4 mg 3 times a day and tramadol 50 mg every 6 hours as needed. CONSULTATIONS DURING THIS HOSPITALIZATION: General Surgery, Dr. Murray. HOSPITAL COURSE: Ms. Bills is a pleasant 82-year-old lady who was admitted to [facility] on 08/06/2017 for abdominal pain. Ultrasound of the right upper quadrant showed a mildl y thickened gallbladder wall, small gallstones and positive Sal's sign. General Surgery Service w as consulted. On 08/07/2017, she underwent laparoscopic cholecystectomy. On 08/08/2017, Ms. Bills was lethargic, which improved later in the day. On 08/10/2017, yair manny was called because of recu rrence of lethargy. There was no acute intracranial abnormality on noncontrast CT scan of the brain. 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 She also had approximately 50% stenosis of the proximal left internal carotid artery . Her cognitive status improved by the afternoon of 08/10/2017. Her constipation also resolved on 07/25 after she received magnesium citrate. On 08/10/2017, she had a CT scan of the abdomen and pelvis without contrast because of bruising over the abdominal wall on the right side. She did not have any hemorrhage in the abdomen and pelvis. She also received 1 unit of packed RBC transfusion during this hospitalization. LABORATORY DATA: On the day of discharge, she has white count of 4,100, hemoglobin 9, platelet count 256,000. Sodium 136, potassium 3.9 and creatinine 0.84. Please note that patient's CT scan of [place] picked up layering bilateral effusions, larger on the right. Also, her CT scan of the abdomen and pelvis showed worsening third spacing of fluid w ith bilateral moderate sized layering pleural effusions as well as skin thickening and superficial so ft tissue edema. She is maintaining good oxygen saturations but if it changes, she may need diuretic s. She also became physically deconditioned during this hospitalization. She is being discharged to [facility] for further management. DISCHARGE DESTINATION: [facility]. TOTAL AMOUNT OF TIME SPENT COORDINATING THIS DISCHARGE: 38 minutes.
== END 2017-08-11 13:00 | DRG 417 ==
LOC: ERS 11:53 → SURG A 16:30
PROVIDERS: ADMIT Internal Medicine Infectious Disease; ATTEND Internal Medicine Infectious Disease
PROC: 0FT44ZZ Resection of Gallbladder, Percutaneous Endoscopic Approach (ICD-10-PCS; principal; 2017-08-07)
PROC: BF131ZZ Fluoroscopy of Gallbladder and Bile Ducts using Low Osmolar Contrast (ICD-10-PCS; 2017-08-07)
DX: K81.0 Acute cholecystitis (principal); G93.40 Encephalopathy, unspecified; N17.9 Acute kidney failure, unspecified; I42.9 Cardiomyopathy, unspecified; R53.1 Weakness; Z79.02 Long term (current) use of antithrombotics/antiplatelets; K59.00 Constipation, unspecified; I48.2 Chronic atrial fibrillation; E78.5 Hyperlipidemia, unspecified; Z88.0 Allergy status to penicillin; Z88.8 Allergy status to other drugs, medicaments and biological substances; Z79.4 Long term (current) use of insulin; Z86.73 Personal history of transient ischemic attack (TIA), and cerebral infarction without residual deficits; Z95.5 Presence of coronary angioplasty implant and graft; Z90.710 Acquired absence of both cervix and uterus; Z79.82 Long term (current) use of aspirin
CPT/HCPCS: 36415; 36416; 47532; 70450; 70496; 70498; 71045; 74176; 76705; 80048; 80053; 80061; 81003; 81015; 83036; 83605; 83690; 83735; 84100; 84134; 84443; 84484; 85025; 85610; 85730; 86850; 86900; 86901; 87040; 87086; 88304; 93005; 93976; 96361; 96365; 96375; G8978-GP-CM; G8979-GP-CK; G8987-GO-CK; G8988-GO-CJ; J1100; J1815; J2001; J2185; J2270; J2405; J2704; J3010; J3475; J7050; Q9961

== ENCOUNTER 2017-09-05 02:33 | Emergency (ER) | payer MEDICARE ==
--- NOTE | 2017-09-05 11:04 | RAD ---
ONE VIEW PELVIS: HISTORY: Fall. Right-sided pain. COMPARISON: 06/02/17. FINDINGS: Mild bone mineralization. Sacral alae are preserved. Bony pelvis is intact. Mild degenerative cho ge of the left and mild degenerative change of the right hip are noted. No evidence of fracture in e ither hip on the single projection. IMPRESSION: No fracture. POS: [facility]
--- NOTE | 2017-09-05 11:30 | RAD ---
RIGHT RIBS 3 VIEWS ONE VIEW CHEST: HISTORY: Fall. Pain. COMPARISON: None. FINDINGS: CHEST 1 VIEW: Atherosclerosis of the aorta. Normal cardiac silhouette. The pulmonary vessels and hilum are normal . Costophrenic angles are clear. Lungs are hyperinflated. No consolidation or mass. No pneumothor ax or acute osseous fractures. There is diffuse bone demineralization. Right-sided transvenous pace maker has lead terminating in the region of the right atrium and the right ventricle. RIGHT RIBS: No fracture. No cortical irregularity or periosteal reaction. Osteopenic changes are present. IMPRESSION: 1. No acute cardiopulmonary process. 2. No evidence of a right rib fracture. POS: [facility]
[2017-09-05] MEDS ORDERED: hydrALAZINE 20 MG/ML VIAL SLOW IVP PRN (21:29)
[2017-09-05] MEDS ORDERED: Calcium Carbonate 500 MG ChewTAB PO PRN (21:29)
[2017-09-05] MEDS ORDERED: Ondansetron HCl/PF 4 MG/2 ML Vial IVP PRN (21:29)
[2017-09-05] MEDS ORDERED: Senokot 8.6 MG TAB PO PRN ×2 (21:29)
[2017-09-05] MEDS ORDERED: Nitroglycerin 0.4 MG TAB (25 Tab Bottle) SL PRN (21:29)
[2017-09-05] MEDS ORDERED: Benzonatate 100 MG CAP PO PRN (21:29)
[2017-09-05] MEDS ORDERED: Diabetic Tussin 200 MG/10 ML UDCUP PO PRN (21:29)
[2017-09-05] MEDS ORDERED: Acetaminophen 325 MG TAB PO PRN (21:29)
[2017-09-05] MEDS ORDERED: Loratadine 10 MG TAB PO PRN (21:29)
[2017-09-05] MEDS ORDERED: Bisacodyl 5 MG TAB PO PRN ×2 (21:29)
[2017-09-05] MEDS ORDERED: Mag-Al 1200 mg/1200 mg/30 ML UDCUP PO PRN ×2 (21:29)
[2017-09-05] MEDS ORDERED: HumaLOG 300 UNITS/3 ML VIAL SC PRN ×2 (21:35)
[2017-09-05] MEDS ORDERED: Dextrose 5% in Water 1,000 ML IV PRN (21:35)
[2017-09-05] MEDS ORDERED: Dextrose 50% Abboject 50 ML SYRINGE SLOW IVP PRN (21:35)
[2017-09-05] MEDS ORDERED: Bisacodyl 10 MG SUPP PR PRN (21:39)
[2017-09-05] MEDS ORDERED: Sodium Chloride 0.9% 1,000 ML IV SCH (21:45)
[2017-09-06] MEDS ORDERED: Famotidine/PF 20 mg/2ml Vial SLOW IVP SCH (09:00)
[2017-09-06] MEDS ORDERED: Enoxaparin Sodium 40 MG/0.4 ML SYRINGE SC SCH (09:00)
== END 2017-09-05 04:55 | disposition home or self-care (01) ==
LOC: ERS 02:33
DX: S70.11XA Contusion of right thigh, initial encounter (principal); I48.91 Unspecified atrial fibrillation; E11.9 Type 2 diabetes mellitus without complications; I10 Essential (primary) hypertension; Z86.73 Personal history of transient ischemic attack (TIA), and cerebral infarction without residual deficits; Z79.899 Other long term (current) drug therapy; Z79.82 Long term (current) use of aspirin; Z79.4 Long term (current) use of insulin; W01.0XXA Fall on same level from slipping, tripping and stumbling without subsequent striking against object, initial encounter
CPT/HCPCS: 72170

== ENCOUNTER 2017-09-30 14:21 | Emergency (ER) | payer MEDICARE ==
[2017-09-30 15:21] LABS: #Eosinphils 0.1 thou/uL (0.0-0.7); #Lymphocytes 2.1 thou/uL (1.20-3.40); #Monocytes 0.8 thou/uL (0.11-0.59); #Neutrophils 5.1 thou/uL (1.40-6.50); %Basophils 0.4 % (0.0-1.0); %Eosinophils 1.3 % (0.0-10.0); %Lymphocytes 25.8 % (21.0-51.0); %Monocytes 9.7 % (0.0-10.0); %Neutrophils 62.8 % (42.0-75.0); Hemoglobin 13.3 g/dL (12.0-16.0); Mean Corpuscular HGB CONC 33.6 g/dL (32.0-36.0); Mean Corpuscular Volume 92.3 fl (81.0-99.0); Mean Platelet Volume 6.3 fL (7.4-10.4); Platelet Count 256 thou/uL (130-400); RBC Distribution Width 12.4 % (11.5-14.5); Red Blood Cell (RBC) Count 4.29 mill/uL (4.20-5.40); White Blood Cell (WBC) Count 8.1 thou/uL (4.8-10.8)
[2017-09-30 15:28] LABS: INR-International Normal Ratio 3.5; PTT 54.9 SEC (22.9-36.1); Prothrombin Time 36.5 SEC (12.0-14.7)
[2017-09-30 15:44] LABS: ALT (SGPT) 40 U/L (8-55); AST (SGOT) 52 U/L (5-34); Albumin 3.4 g/dL (3.4-4.8); Alkaline Phosphatase 142 U/L (40-150); Anion Gap 13 mmol/L (10-20); BUN (Urea Nitrogen) 22 mg/dL (9.8-20.1); Bilirubin, Total 0.8 mg/dL (0.2-1.2); Calc. Creatinine Clearance 0 mL/min (70-130); Calcium 10.9 mg/dL (7.8-10.44); Carbon Dioxide 25 mmol/L (23-31); Chloride 98 mmol/L (98-107); Estimated GFR-MDRD 49; Globulin 3.9 g/dL (2.4-3.5); Glucose 165 mg/dL (83-110); Potassium 4.2 mmol/L (3.5-5.1); Protein, Total 7.3 g/dL (6.0-8.3); Sodium 132 mmol/L (136-145)
--- NOTE | 2017-09-30 17:13 | CT ---
FACE CT WITH CONTRAST: 09/30/17 HISTORY: Facial pain. evaluate for sublingual abscess. COMPARISON: None. TECHNIQUE: Postcontrast face CT is performed in the axial plane. Coronal reformatted and sagittal reformatted im ages are submitted for interpretation. FINDINGS: The visualized brain parenchyma demonstrates appropriate enhancement. Chronic small vessel ischemic c hange of the white matter and age appropriate atrophy are noted. Bilateral ocular lens implants are a ppropriate. Both globes are intact. Retrobulbar fat is preserved. Symmetric attenuation of the optic nerve and ocular rectus muscles. There is adequate aeration of the visualized paranasal sinuses. On the coronal reformatted images, bi lateral osteomeatal complexes are patent. Mild leftward deviation of the nasal septum. The maxilla an d mandible are intact. No destructive lesions. No fractures. Upper cervical spine is unremarkable. Visualized aerodigestive tract is patent. No obvious mucosal abnormalities. Epiglottis is of normal c aliber. Pre-epiglottic fat is preserved. Midline fatty raphae of the tongue is preserved. There is no evidence of an abscess in the left or right sublingual region. There is mild asymmetric edema involv ing the left submandibular gland with a punctate 1 mm calcification in the left submandibular gland. There are no calcifications along the expected course of the left submandibular duct. No evidence of abscess in the left and right sublingual space. Nonspecific sublingual salivary glands are noted. The mylohyoid muscles and the rest of the muscles along the floor of the mouth are intact. No evidenc e of abscess. The soft tissue neck structures and the platysmus that are anterior to the floor of the mouth are unremarkable. IMPRESSION: 1. No evidence of a soft tissue abscess. 2. Asymmetric edema involving the left submandibular gland. Correlate for inflammation of the le ft submandibular gland. POS: [facility]
== END 2017-09-30 18:02 ==
LOC: ERS 14:21
DX: K12.2 Cellulitis and abscess of mouth (principal); I48.91 Unspecified atrial fibrillation; E11.9 Type 2 diabetes mellitus without complications; Z79.4 Long term (current) use of insulin; I10 Essential (primary) hypertension; Z86.73 Personal history of transient ischemic attack (TIA), and cerebral infarction without residual deficits; Z79.899 Other long term (current) drug therapy
CPT/HCPCS: 36415; 70487; 80053; 85025; 85730; 96365; J3370

== ENCOUNTER 2018-10-05 15:24 | Emergency (ER) | payer MEDICARE ==
[2018-10-05 16:43] LABS: #Eosinphils 0.3 thou/uL (0.0-0.7); #Lymphocytes 1.4 thou/uL (1.20-3.40); #Monocytes 0.5 thou/uL (0.11-0.59); #Neutrophils 3.7 thou/uL (1.40-6.50); %Basophils 0.2 % (0.0-1.0); %Eosinophils 4.3 % (0.0-10.0); %Lymphocytes 24.4 % (21.0-51.0); %Monocytes 7.6 % (0.0-10.0); %Neutrophils 63.5 % (42.0-75.0); Hemoglobin 13.8 g/dL (12.0-16.0); Mean Corpuscular HGB CONC 33.4 g/dL (32.0-36.0); Mean Corpuscular Hemoglobin 31.3 pg (27.0-31.0); Mean Corpuscular Volume 93.9 fL (78.0-98.0); Mean Platelet Volume 6.7 fL (7.4-10.4); Platelet Count 194 thou/uL (130-400); RBC Distribution Width 12.6 % (11.5-14.5); White Blood Cell (WBC) Count 5.9 thou/uL (4.8-10.8)
--- NOTE | 2018-10-05 17:01 | ULT ---
ULTRASOUND WITH DOPPLER DUPLEX VENOUS LOWER EXTREMITY RIGHT 10/05/18 CPT: 74480 ICD-10-PCS: B54D HISTORY: Pain/edema. TECHNIQUE: Color flow Doppler, spectral waveform analysis of pulsed Doppler, and nuñez-scale imaging with zara yonathan and augmentation, were used to evaluate the right common femoral, femoral, popliteal, posterior tibial, and superficial femoral, veins; and the proximal portions of the profunda femoral and greater saphenous, veins. FINDINGS: Appropriate compressibility and flow within the imaged deep vein system of the right lower extremity. IMPRESSION: No DVT. POS: [facility]
[2018-10-05 17:06] LABS: ALT (SGPT) 19 U/L (8-55); AST (SGOT) 29 U/L (5-34); Alkaline Phosphatase 87 U/L (40-150); Anion Gap 11 mmol/L (10-20); BUN (Urea Nitrogen) 26 mg/dL (9.8-20.1); Bilirubin, Total 0.6 mg/dL (0.2-1.2); Calc. Creatinine Clearance 0 mL/min (70-130); Calcium 10.8 mg/dL (7.8-10.44); Carbon Dioxide 23 mmol/L (23-31); Chloride 109 mmol/L (98-107); Estimated GFR-MDRD 37; Glucose 128 mg/dL (83-110); Potassium 4.2 mmol/L (3.5-5.1); Sodium 139 mmol/L (136-145)
== END 2018-10-05 17:43 | disposition home or self-care (01) ==
LOC: ERS 15:24
DX: L03.115 Cellulitis of right lower limb (principal); I48.91 Unspecified atrial fibrillation; E11.9 Type 2 diabetes mellitus without complications; Z79.4 Long term (current) use of insulin; I10 Essential (primary) hypertension; Z86.73 Personal history of transient ischemic attack (TIA), and cerebral infarction without residual deficits; Z79.82 Long term (current) use of aspirin; Z79.899 Other long term (current) drug therapy
CPT/HCPCS: 36415; 80053; 85025

== ENCOUNTER 2018-10-26 17:46 | Emergency (ER) | payer MEDICARE ==
--- NOTE | 2018-10-26 18:40 | CT ---
EXAM: CT brain without contrast HISTORY: Fall with head trauma COMPARISON: 09/05/2017 TECHNIQUE: Multiple contiguous axial images were obtained and a CT of the brain without contrast. FINDINGS: There are scattered hypodensities in the subcortical and periventricular white matter consi stent with small vessel ischemic disease. There is no evidence of hydrocephalus, intracranial hemorrhage, or extra-axial fluid collection. The calvarium and overlying soft tissues are unremarkable. The visualized paranasal sinuses and masto id air cells are well aerated. IMPRESSION: No evidence of acute intracranial abnormality
--- NOTE | 2018-10-26 19:16 | RAD ---
EXAM: 2 views of the right femur HISTORY: Leg pain after fall COMPARISON: None FINDINGS: There is no evidence of acute fracture or dislocation. No soft tissue swelling is seen. No degenerative changes are seen in the hip. Calcification of the menisci is seen in the knee. Vascular calcifications are seen. IMPRESSION: No evidence of acute osseous abnormality.
--- NOTE | 2018-10-26 19:17 | RAD ---
Exam: Single view of the pelvis HISTORY: Pelvic and hip pain after fall COMPARISON: None FINDINGS: A single view the pelvis shows no evidence of acute fracture or dislocation. Mild degenerat venice changes seen in both hips. Remodeling of the right inferior pubic ramus may represent a remote healed fracture. Degenerative changes are seen in the lumbar spine. IMPRESSION: No evidence of acute osseous abnormality.
== END 2018-10-26 19:35 | disposition home or self-care (01) ==
LOC: SCSER 17:46
DX: S70.01XA Contusion of right hip, initial encounter (principal); I48.91 Unspecified atrial fibrillation; E11.9 Type 2 diabetes mellitus without complications; I10 Essential (primary) hypertension; E11.40 Type 2 diabetes mellitus with diabetic neuropathy, unspecified; Z79.899 Other long term (current) drug therapy; Z79.4 Long term (current) use of insulin; Z86.73 Personal history of transient ischemic attack (TIA), and cerebral infarction without residual deficits; Z79.01 Long term (current) use of anticoagulants; W01.198A Fall on same level from slipping, tripping and stumbling with subsequent striking against other object, initial encounter
CPT/HCPCS: 70450; 72170

== ENCOUNTER 2018-12-29 10:42 | Inpatient (IN) | payer MEDICARE ==
--- NOTE | 2018-12-29 11:16 | RAD ---
EXAM: 2 views of the left hip HISTORY: Left hip pain after fall COMPARISON: None FINDINGS: 2 views of the left hip shows no evidence of acute fracture or dislocation. No degenerative changes are seen. No soft tissue swelling is present. IMPRESSION: No evidence of acute osseous abnormality.
--- NOTE | 2018-12-29 11:16 | RAD ---
XR Chest 1 View Portable HISTORY: Trauma, chest pain COMPARISON: 09/05/2017 FINDINGS: The heart size is normal. The lungs are well expanded without focal areas of consolidation, pneumothorax or pleural effusions. Right-sided pacer device remains in place. IMPRESSION: No radiographic evidence of acute cardiopulmonary process.
[2018-12-29 11:34] LABS: #Eosinphils 0.1 thou/uL (0.0-0.7); #Lymphocytes 1.1 thou/uL (1.20-3.40); #Monocytes 0.6 thou/uL (0.11-0.59); #Neutrophils 6.9 thou/uL (1.40-6.50); %Basophils 0.2 % (0.0-1.0); %Eosinophils 0.9 % (0.0-10.0); %Monocytes 6.8 % (0.0-10.0); %Neutrophils 79.1 % (42.0-75.0); Hemoglobin 12.7 g/dL (12.0-16.0); Mean Corpuscular HGB CONC 34.1 g/dL (32.0-36.0); Mean Corpuscular Hemoglobin 31.2 pg (27.0-31.0); Mean Corpuscular Volume 91.4 fL (78.0-98.0); Mean Platelet Volume 7.2 fL (7.4-10.4); Platelet Count 193 thou/uL (130-400); RBC Distribution Width 11.9 % (11.5-14.5); Red Blood Cell (RBC) Count 4.07 mill/uL (4.20-5.40); White Blood Cell (WBC) Count 8.7 thou/uL (4.8-10.8)
[2018-12-29] MEDS ORDERED: Adacel (T-DAP) 0.5 ML SYRINGE ONE ×2 (11:37→11:49)
[2018-12-29 11:41] LABS: INR-International Normal Ratio 1.5; PTT 37.9 SEC (22.9-36.1); Prothrombin Time 18.2 SEC (12.0-14.7)
[2018-12-29 12:05] LABS: ALT (SGPT) 20 U/L (8-55); AST (SGOT) 29 U/L (5-34); Albumin 3.8 g/dL (3.4-4.8); Alkaline Phosphatase 97 U/L (40-150); Anion Gap 14 mmol/L (10-20); BUN (Urea Nitrogen) 31 mg/dL (9.8-20.1); Bilirubin, Total 0.8 mg/dL (0.2-1.2); CK (CPK) 59 U/L (29-168); Calc. Creatinine Clearance 0 mL/min (70-130); Calcium 10.2 mg/dL (7.8-10.44); Carbon Dioxide 21 mmol/L (23-31); Chloride 109 mmol/L (98-107); Estimated GFR-MDRD 40; Globulin 3.7 g/dL (2.4-3.5); Glucose 76 mg/dL (83-110); Potassium 3.8 mmol/L (3.5-5.1); Protein, Total 7.5 g/dL (6.0-8.3); Sodium 140 mmol/L (136-145)
--- NOTE | 2018-12-29 12:49 | CT ---
EXAM: CT brain without contrast HISTORY: Fall on blood thinners COMPARISON: 10/26/2018 TECHNIQUE: Multiple contiguous axial images were obtained and a CT of the brain without contrast. FINDINGS: There are scattered hypodensities in the subcortical and periventricular white matter consi stent with small vessel ischemic disease. There is a small area of hyperdensity within a few of the left frontal sulci. This may represent a small amount of subarachnoid hemorrhage. The calvarium and overlying soft tissues are unremarkable. The visualized paranasal sinuses and mast oid air cells are well aerated. IMPRESSION: Possible small left frontal subarachnoid hemorrhage. Dr. Farris notified of findings at 12:46 PM on 12/29/2018.
--- NOTE | 2018-12-29 12:51 | CT ---
EXAM: CT of the cervical spine without contrast HISTORY: Fall with neck pain COMPARISON: 09/05/2017 TECHNIQUE: Multiple contiguous axial images were obtained in a CT of the cervical spine without contr ast. Sagittal and coronal reformats were performed. FINDINGS: The vertebral bodies and intervertebral discs demonstrate normal height and alignment witho ut fracture or subluxation. Mild degenerative changes are present. No prevertebral soft tissue swelling is seen. The posterior facets are well aligned. Normal alignment of the skull base with the cervical spine is seen. The lung apices and cervical soft tissues are unremarkable. IMPRESSION: No evidence of acute osseous abnormality of the cervical spine.
[2018-12-29] MEDS ORDERED: PROTHROMBIN COMPLEX CONCENTRATE IV ONE (13:15)
[2018-12-29] MEDS ORDERED: Lidocaine 1% w/Epinephrine 1:100K 20 ML VIAL ONE ×2 (15:36→15:38)
--- NOTE | 2018-12-29 16:11 | HP ---
REQUESTING PHYSICIAN: Dr. Farris. ATTENDING SURGEON: Dr. Butcher. CONSULTATIONS: 1. Neurosurgery, Dr. Land. 2. Cardiology, Dr. Disla. HISTORY OF PRESENT ILLNESS: The patient is an 83-year-old woman, who presented to the emergency department after a fall this morning. The patient reports "passing out", falling, striking her left side of her head. The patient was brought to the emergency department by ground EMS, where she underwent evaluation and examination and noted to have a small subarachnoid hemorrhage. The patient is on Eliquis and aspirin and would require admission. We were asked to evaluate the patient for admission and obtain Neurosurgical and Cardiology consultations. The patient is unsure of duration of loss of consciousness, but she felt that it was brief. ALLERGIES: 1. CIPRO. 2. PENICILLIN. 3. SULFA. 4. CODEINE. CURRENT MEDICATIONS: 1. Simvastatin. 2. Metoprolol. 3. Aspirin. 4. Levothyroxine. 5. Humulin. 6. Gabapentin. 7. Eliquis. 8. Xanax. 9. Amiodarone. 10. Lantus. PAST MEDICAL HISTORY: Coronary artery disease, atrial fibrillation, type 2 diabetes, hepatic encephalopathy, TIA x2, cardiomyopathy, peripheral neuropathy, and anxiety. PAST SURGICAL HISTORY: Laparoscopic cholecystectomy, PTCA x2, stent x1, pacemaker placement, bilateral cataract surgery, appendectomy, bladder suspension, and hysterectomy. FAMILY MEDICAL HISTORY: Diabetes and coronary artery disease. SOCIAL HISTORY: The patient lives at home. She denies drug, tobacco, or alcohol use. PHYSICAL EXAMINATION: VITAL SIGNS: Blood pressure 143/58, heart rate 60, respirations 18, oxygen saturation is 99% on room air, temperature is 97.8. GENERAL: The patient is resting comfortably in bed. She is awake, alert, oriented, and appropriate. Logan Coma Scale is 14, minus 1 for eye opening, but she immediately was able to open eyes with gentle verbal stimuli. HEENT: Head; the patient has a dressing wrapped around to address laceration that is above the left eye. The emergency room physician is going to repair. Eyes; extraocular motion is intact. PERRLA bilaterally with large periorbital ecchymosis and swelling of the left eye. Contusion to the left side of the scalp. Nose has a small amount of dry blood in the left naris. Ears are atraumatic without discharge. Oropharynx is clear. NECK: Nontender. Trachea is midline. No JVD. CHEST: Clear to auscultation with good inspiratory and expiratory effort. HEART: Regular rate and rhythm. ABDOMEN: Soft, flat, and nontender with active bowel sounds. PELVIS: Stable. EXTREMITIES: Neurovascularly intact x4. Right upper extremity has a small skin tear that has been dressed, but does have some oozing. Left shoulder shows a small contusion. BACK: Atraumatic and nontender. LABORATORY FINDINGS: White blood cell count 8.7, hemoglobin 12.7, hematocrit 37.2, platelets 193. Sodium 140, potassium 3.8, chloride 109, CO2 of 21, BUN 31, creatinine 1.27, glucose is 76. LFTs are unremarkable. PT 18, INR 1.5, PTT 38. RADIOGRAPHIC FINDINGS: CT of the brain without contrast shows a small left frontal subarachnoid hemorrhage. CT of the C-spine without contrast shows no evidence of acute osseous abnormality of the C-spine. AP chest x-ray shows no radiographic evidence of acute cardiopulmonary process. Views of the left hip show no evidence of acute osseous abnormality. ASSESSMENT AND PLAN: 1. Status post ground level fall. 2. Syncope. 3. History of Eliquis and aspirin use. 4. Left forehead laceration. 5. Multiple contusions. 6. Skin tear. 7. History of hypertension, coronary artery disease, anxiety, and diabetes. Plan will be to admit the patient to the [facility] for serial exams per Neurosurgery. We will repeat a CT of her brain in 6 hours from the original. The patient will also have her pacemaker interrogated. We have ordered echocardiogram and Doppler of her carotids. Consultation with Cardiology. Otherwise, the patient will have nonnarcotic pain medication, pulmonary toilet, gastritis, and mechanical venous thromboembolism prophylaxis. The evaluation, examination, laboratory and radiographic findings were discussed with Dr. Butcher prior to this dictation. Job ID: [id number]
--- NOTE | 2018-12-29 17:20 | CT ---
CT head noncontrast HISTORY: Head injury. Worsening headache. COMPARISON: Earlier exam on the same date. FINDINGS: Very subtle hyperdensity associated with the left frontal gyri is similar in appearance to the previous exam. No new areas of hyperdensity. Diffuse cortical atrophy, old infarcts, and chronic ischemic small vessel disease are stable. No mass effect. Left periorbital and supraorbital s oft tissue injury is again demonstrated. IMPRESSION: Small left cortical hyperdensity, possibly representing minimal subarachnoid hemorrhage o r parenchymal contusion, is stable. No new abnormalities.
[2018-12-29] MEDS ORDERED: hydrALAZINE 20 MG/ML VIAL SLOW IVP PRN (17:21)
[2018-12-29] MEDS ORDERED: Dextrose 5% in Water 1,000 ML IV PRN (17:21)
[2018-12-29] MEDS ORDERED: Dextrose 50% Abboject 50 ML SYRINGE SLOW IVP PRN (17:21)
[2018-12-29] MEDS ORDERED: Ondansetron ODT 4 MG TAB PO PRN (17:21)
[2018-12-29] MEDS ORDERED: Ondansetron PF 4 MG/2 ML Vial IVP PRN (17:21)
--- NOTE | 2018-12-29 18:38 | ULT ---
Carotid duplex sonogram HISTORY: Syncope. Vascular disease. FINDINGS: Right: Calcified plaque. Color and spectral Doppler evaluation, peak systolic velocity of 99 cm/s, an d IC to CC ratio of 1.3 suggest no hemodynamically significant stenosis within the extracranial right ICA. Antegrade flow within the vertebral artery. Left: Calcified plaque. Color and spectral Doppler evaluation, peak systolic velocity of 116 cm/s, an d IC to CC ratio of 1.5 suggest no hemodynamically significant stenosis within the extracranial left ICA. Antegrade flow within the vertebral artery. IMPRESSION: Atherosclerosis. No sonographic evidence of significant extracranial ICA stenosis.
[2018-12-29 20:51] VITALS: BMI 21.4
[2018-12-29] MEDS ORDERED: Senokot S 8.6-50 MG TAB PO SCH (21:00)
[2018-12-29] MEDS ORDERED: Famotidine 20 MG TAB PO SCH (21:00)
[2018-12-29] MEDS: Sodium Chloride 0.9% 1,000 ML IV SCH (21:09)
--- NOTE | 2018-12-29 21:42 | CON ---
DATE OF CONSULTATION: HISTORY OF PRESENT ILLNESS: Ms. Bills is an 83-year-old female who is brought to the emergency department this morning following a fall. There are small traumatic subarachnoid hemorrhages seen on CT. The patient is on Eliquis, and Neurosurgery was consulted. Ms. Bills is resting comfortably when I entered her hospital room. She has a bandage on her head covering laceration above the left eye and some significant bruising there as well. She has lacerations on her right forearm and some multiple areas of ecchymosis across her body, primarily in the left upper chest and some pain in the left hip as well. She states that she woke up this morning and felt a little dizzy and lightheaded, checked her blood sugar which was 183, took her medications and went into the kitchen to get some breakfast. She felt as though she was going to pass out, so she tried to quickly get back to the bedroom where her alert monitor necklace was, however, she passed out prior to getting to it. She then woke up after being out for a period of time with blood all over the floor and some laceration on her head. She was able to crawl over to where the monitor was and got EMS to get her. The patient has history of AFib and a pacemaker. She is alert and oriented when I see her. She does live alone in an apartment. She is moving all 4 extremities well. There is no lateralizing sensory or motor deficits noted. REVIEW OF SYSTEMS: 10-point review of systems has been completed and is negative other than stated in the above HPI. PAST MEDICAL HISTORY: Arrhythmia; AFib; diabetes type 2, on insulin; hypertension; hepatic encephalopathy; ischemic attacks x2; cardiomyopathy; neuropathy. PAST SURGICAL HISTORY: Bilateral cataracts, appendectomy, bladder suspension, cardiac catheterization x2, hysterectomy, pacemaker placement, laminectomy, cholecystectomy. SOCIAL HISTORY: The patient denies alcohol, drug, or smoking history. She lives alone in an apartment in an assisted living facility, but she does her own cooking, cleaning, and takes care of herself. FAMILY HISTORY: Includes coronary artery disease and diabetes. ALLERGIES: CIPRO, CODEINE, PENICILLIN, AND SULFA. MEDICATIONS: 1. Simvastatin. 2. Metoprolol. 3. Aspirin. 4. Levothyroxine. 5. Humulin. 6. Gabapentin. 7. Eliquis. 8. Xanax. 9. Lantus. PHYSICAL EXAMINATION: VITAL SIGNS: Blood pressure 142/57, heart rate 61, respirations 17, temperature 97.8, O2 sats 100% on room air. CONSTITUTIONAL: The patient is alert and oriented. She is afebrile and mildly hypertensive. Appears nontoxic and does not appear to be in any visible distress. HEENT: Head is normocephalic. She has significant ecchymosis of the left eye and a laceration there as well, approximately a centimeter. Pupils are equal, round, and reactive to light. Extraocular movements are intact. Hearing is intact. Moist mucous membranes. RESPIRATIONS: Normal work of breathing on room air. EXTREMITIES: Right upper extremity has a laceration and some ecchymosis in the forearm. She has equal strength bilaterally. Normal range of motion. 5/5 deltoids, biceps, triceps, binding bench worker strength, some pain with range of motion on the left due to some bruising on the left chest and shoulder area. Lower extremities; 5/5 strength in hip flexion, hip extension, dorsiflexion, plantar flexion. On range of motion, she does have some limited strength on the left due to pain in left hip. Decreased sensation in bilateral feet from diabetic neuropathy. NEUROLOGIC: The patient is awake, alert, oriented x3. GCS is 15. Speech is spontaneous and fluent. Normal fund of knowledge. Short and long-term memory are intact. Cranial nerves 2 through 12 are tested and intact. There are no lateralizing sensory or motor deficits noted. IMAGING STUDIES: CT of the brain shows possible small left frontal subarachnoid hemorrhage. CT of the cervical spine, no evidence of acute osseous abnormality of the cervical spine. Chest x-ray, no radiographic evidence of acute cardiopulmonary process. Hip x-ray, no evidence of acute osseous abnormality on the left hip. ASSESSMENT AND PLAN: Ms. Bills is an 83-year-old female. She sustained a syncopal episode followed by a fall and causing significant bleeding due to a laceration on her left forehead. She also has a small area of subarachnoid hemorrhage. She is on aspirin and Eliquis. She was given Kcentra while in the emergency department. We will get a repeat CT scan of her brain 6 hours after the first one. We will get neuro checks. Keep her in normal blood pressure. The trauma team will be admitting her and she will need a full workup for her syncopal episode. We will need to stop the Eliquis and aspirin and discuss with our colleagues of Cardiology when it would be safe to restart. Any further questions, please contact Neurosurgery Team. Job ID: [id number]
[2018-12-29] MEDS ORDERED: Gabapentin 100 MG CAP PO SCH (21:45)
[2018-12-29] MEDS ORDERED: Acetaminophen 325 MG TAB PO SCH ×2 (21:45→22:00)
[2018-12-29] MEDS ORDERED: Docusate 100 MG CAP PO PRN (21:52)
[2018-12-29] MEDS ORDERED: Polyethylene Glycol 3350 17 GM Packet PO PRN (21:54)
--- NOTE | 2018-12-30 00:33 | PRG ---
DATE OF SERVICE: 12/29/2018 SUBJECTIVE: Ms. Bills is an 83-year-old female, coming today after a ground level fall, possibly syncope. The patient has a history of using Eliquis and aspirin, history of hypertension, coronary artery disease, anxiety, and diabetes. The patient sustained left forehead laceration, multiple contusions, and left frontal subarachnoid hemorrhage. GCS is 15, left eye contusion with ocular muscle intact and vision intact. Laceration is sutured in the ER, left hand abrasions. Dressings were cleaned and changed. Vital signs stable. The patient reports having pain of the left breast contusion and left eye contusion. Tylenol was initiated. The patient is alert and awake. GCS 15. No focal neurologic deficits. All of her home medications have been put back except aspirin, Eliquis, and ibuprofen. PLAN: Will be repeat CT brain tomorrow, BMP, electrolytes, and coags. Continue neuro checks q.2 hours. Continue pain control. Continue nonpharmacologic DVT prophylaxis and syncope workup is pending. The patient wished to go home tomorrow. Job ID: [id number]
[2018-12-30] MEDS: Levothyroxine Sodium 25 MCG TAB PO SCH (05:59)
[2018-12-30] MEDS: Sodium Chloride 0.9% 1,000 ML IV SCH ×2 (05:59→21:48)
[2018-12-30] MEDS: Acetaminophen 325 MG TAB PO SCH ×3 (05:59→21:52)
[2018-12-30 06:15] LABS: #Eosinphils 0.1 thou/uL (0.0-0.7); #Lymphocytes 2.4 thou/uL (1.20-3.40); #Monocytes 0.6 thou/uL (0.11-0.59); #Neutrophils 2.5 thou/uL (1.40-6.50); %Basophils 0.5 % (0.0-1.0); %Eosinophils 1.4 % (0.0-10.0); %Lymphocytes 43.1 % (21.0-51.0); %Monocytes 11.3 % (0.0-10.0); %Neutrophils 43.7 % (42.0-75.0); Hemoglobin 11.6 g/dL (12.0-16.0); INR-International Normal Ratio 1.3; Mean Corpuscular HGB CONC 33.9 g/dL (32.0-36.0); Mean Corpuscular Hemoglobin 31.9 pg (27.0-31.0); Mean Corpuscular Volume 94.2 fL (78.0-98.0); Mean Platelet Volume 6.9 fL (7.4-10.4); Platelet Count 174 thou/uL (130-400); Prothrombin Time 16.1 SEC (12.0-14.7); RBC Distribution Width 11.9 % (11.5-14.5); Red Blood Cell (RBC) Count 3.63 mill/uL (4.20-5.40); White Blood Cell (WBC) Count 5.6 thou/uL (4.8-10.8)
[2018-12-30 06:16] LABS: PTT 38.8 SEC (22.9-36.1)
[2018-12-30 06:32] LABS: Phosphorus 3.1 mg/dL (2.3-4.7)
[2018-12-30 06:33] LABS: Anion Gap 11 mmol/L (10-20); BUN (Urea Nitrogen) 25 mg/dL (9.8-20.1); Calc. Creatinine Clearance 38 mL/min (70-130); Calcium 9.5 mg/dL (7.8-10.44); Carbon Dioxide 24 mmol/L (23-31); Chloride 111 mmol/L (98-107); Estimated GFR-MDRD 50; Glucose 76 mg/dL (83-110); Magnesium 1.8 mg/dL (1.6-2.6); Potassium 3.5 mmol/L (3.5-5.1); Sodium 142 mmol/L (136-145)
--- NOTE | 2018-12-30 07:04 | CON ---
DATE OF CONSULTATION: 12/29/2018 REASON FOR CONSULTATION: Atrial fibrillation, anticoagulation therapy, and recent cerebral bleed. HISTORY OF PRESENT ILLNESS: Ms. Bills is a very pleasant 83-year-old woman, who is a patient of Dr. Rudy Olivarez. She recently fell. No predisposing factors. She became lightheaded. She had significant ecchymosis noted to the left side of her head. She also had a small cerebral bleed. She is currently on Eliquis in addition to aspirin. Consequently, Ms. Bills did have an admission in 2013 for similar findings. The pacemaker was still noted at the time. She also had another fall present 1 month ago. PAST MEDICAL HISTORY: Paroxysmal atrial fibrillation, CAD, hypertension, hyperlipidemia, diabetes mellitus, previous TIA, bladder suspension, hysterectomy, RCA stent placement, and bladder suspension. HOME MEDICATIONS: 1. Gabapentin. 2. Eliquis. 3. Xanax. 4. Aspirin. 5. Lomotil. 6. Humulin. 7. Metoprolol. 8. Amiodarone. 9. Plavix. 10. Levothyroxine. REVIEW OF SYSTEMS: A 10-point review of systems is reviewed as above, otherwise negative. PHYSICAL EXAMINATION: GENERAL: Patient is a pleasant female, who is in no acute distress. The patient appears their stated age. VITAL SIGNS: Blood pressure 110/70, pulse 80, and respirations 20. NEUROLOGIC: The patient is alert and oriented x3 with no focal neurologic deficits. HEENT: Significant ecchymosis to the right side of her head. NECK: No JVD. Carotid upstroke brisk. No bruits bilaterally. LUNGS: Clear to auscultation with unlabored respirations. BACK: No scoliosis or kyphosis. CARDIAC: Regular rate and rhythm with normal S1 and S2. No S3 or S4 noted. No significant rubs, murmurs, thrills, or gallops noted throughout the precordium. PMI is not displaced. There is no parasternal heave. ABDOMEN: Soft, nontender, nondistended. No peritoneal signs present. No hepatosplenomegaly. No abnormal striae. EXTREMITIES: 2+ femoral and 2+ dorsalis pedis pulses. No cyanosis, clubbing, or edema. SKIN: No gross abnormalities. PERTINENT LABORATORY DATA: Hemoglobin 12.7, creatinine 1.27 with a GFR of 40, globulin 3.7. EKG shows atrial pacing. IMPRESSION: 1. Small left frontal subarachnoid hemorrhage. 2. Paroxysmal atrial fibrillation. 3. Coronary artery disease. 4. Status post stent placement. RECOMMENDATIONS: I spoke to the patient's daughter at length. At this point, we will stop all anti-platelet and anticoagulation therapy. The hope is that her subarachnoid hemorrhage does not worsen. She will likely need to be off all anticoagulation therapy given recent history of fall. We would likely consider Watchman device as an outpatient. We will interrogate her pacemaker and review an echo. Otherwise, I have no further recommendations. Job ID: [id number]
[2018-12-30] MEDS ORDERED: Potassium Chloride 40 MEQ, Magnesium Sulfate 3 GM in Sodium Chloride 0.9% 250 ML 250 ML IVPB SCH (08:30)
--- NOTE | 2018-12-30 08:47 | CT ---
PRELIMINARY REPORT/[facility]/EMERGENCY AFTER HOURS PROCEDURE: EXAM: CT Head Without Contrast EXAM DATE/TIME: 12/30/2018 4:32 AM CLINICAL HISTORY: 83 years old, female; Condition or disease; Patient HX: F/u sah TECHNIQUE: Imaging protocol: Computed tomography of the head without contrast. COMPARISON: CT Brain WO Con 12/29/2018 5:10 PM FINDINGS: Brain: No hemorrhage. No major vessel vascular territory infarct. No extra-axial fluid collection. Periventricular, subcortical white matter and basal ganglia hypodensities consistent with small vesse l ischemic changes.There is diffuse cerebral atrophy with compensatory ventricular dilation. Ventricles: No hydrocephalus. Bones/joints: No acute fracture. Sinuses: Visualized sinuses are unremarkable. No fluid levels. Mastoid air cells: Visualized mastoid air cells are well aerated. Soft tissues: Left periorbital and cheek soft tissue swelling. IMPRESSION: 1. Left frontal gyral hyperdensity is less conspicuous on today's exam. 2. No new abnormality. Thank you for allowing us to participate in the care of your patient. Dictated and Authenticated by: Tereza Lilly MD 12/30/2018 5:17 AM Central Time ([place] & [place]) FINAL REPORT CT BRAIN WITHOUT CONTRAST: I agree with the preliminary report given by Dr. Tereza Lilly of [facility]. POS: [facility]
[2018-12-30] MEDS ORDERED: Polyethylene Glycol 3350 17 GM Packet PO SCH (09:00)
[2018-12-30] MEDS ORDERED: GLUCOSAMINE HCL 1500 MG PO SCH (09:00)
[2018-12-30] MEDS ORDERED: Potassium Chloride 40 MEQ, Magnesium Sulfate 3 GM in Sodium Chloride 0.9% 250 ML 250 ML IV SCH (10:15)
[2018-12-30] MEDS ORDERED: MAGNESIUM SULFATE IV SCH (10:15)
[2018-12-30] MEDS ORDERED: SODIUM CHLORIDE 0.9% IV SCH (10:15)
[2018-12-30] MEDS ORDERED: POTASSIUM CHLORIDE IV SCH (10:15)
--- NOTE | 2018-12-30 10:24 | PRG ---
DATE OF SERVICE: 12/30/2018 I personally interviewed and examined the patient, agreed with reviewed records and imaging, and agreed with documentation of Rupal Montero PA-C, dated 12/29/2018. Briefly, Tawanna Bills is a patient of ours in our Neurosurgery Clinic from about a year and a half to two years ago when we performed a decompressive laminectomy. She had been doing well. Yesterday, she had a syncopal episode and found herself down in a pool of blood. She was brought to the emergency department. She is on blood thinner at the time. CT examination of the brain revealed a small amount of traumatic subarachnoid hemorrhage in the sulci over the convexity of the left hemisphere. Thankfully, this morning's CAT scan shows resolution. Overnight, she does not complain of any new neurological deficits. She has ecchymosis on the scalp and above her eye on the left side. On my examination, I do not find any significant drift, neglect, or focal deficit related to the previous blood products. As mentioned, CT examination is clear. Ms. Bills can be discharged at any time from Trauma Service. Our office will arrange an appointment in 2 to 4 weeks. No followup CAT scan needs to be done since this one has cleared up. I recommend she would be off blood thinners for at least 2 weeks. Job ID: [id number]
[2018-12-30] MEDS: Amiodarone 200 MG TAB PO SCH (10:25)
[2018-12-30] MEDS: ALPRAZolam 0.25 MG TAB PO SCH ×2 (10:25→20:10)
[2018-12-30] MEDS: Multivit, Therapeutic 1 TAB PO SCH (10:26)
[2018-12-30] MEDS: Gabapentin 100 MG CAP PO SCH ×2 (10:26→20:11)
[2018-12-30] MEDS: Metoprolol Tartrate 25 MG TAB PO SCH ×2 (10:26→20:14)
[2018-12-30] MEDS: Senokot 8.6 MG TAB PO SCH (10:27)
--- NOTE | 2018-12-30 10:55 | PRG ---
DATE OF SERVICE: 12/30/2018 I see Ms. Bills. She is one day out from traumatic subarachnoid hemorrhage while on Eliquis. She received Kcentra yesterday in the ER. She has had stable CT this morning. She had no reported fever overnight. Her vitals have been stable. Her neurologic checks have been stable. The laceration over the left side of her eye has been closed and is no longer bleeding and the swelling has decreased. The patient is neurologically intact and has maintained that way with stable CT. Our plan will be no blood thinners. We asked for blade filer to help and decide when it is safe to restart her anticoagulation. We will likely need to see her as an outpatient basis. If there are any further questions, please contact Neurosurgery. Job ID: [id number]
[2018-12-30] MEDS: traMADol HCl 50 MG TAB PO PRN ×2 (11:39→20:11)
--- NOTE | 2018-12-30 12:21 | PRG ---
DATE OF SERVICE: 12/30/2018 SUBJECTIVE: Ms. Bills is doing well. No current complaints. OBJECTIVE: VITAL SIGNS: Blood pressure 140/52, pulse 60, and respirations 20. LUNGS: Clear to auscultation. HEART: Regular rate and rhythm. ABDOMEN: Soft, nontender, and nondistended. EXTREMITIES: No edema. IMPRESSION: 1. Subarachnoid hemorrhage. 2. Paroxysmal atrial fibrillation. 3. Status post pacemaker. RECOMMENDATIONS: 1. Please see previous recommendations on anticoagulation therapy. 2. She is to follow up with Dr. Olivarez within a week. 3. Hold aspirin, Plavix, and anticoagulation therapy until cleared by Neurosurgery. The patient may benefit from Watchman. Otherwise, she will be okay from my standpoint to discharge home. Job ID: [id number]
[2018-12-30] MEDS: Atorvastatin Calcium 20 MG TAB PO SCH (20:11)
[2018-12-30] MEDS: Famotidine 20 MG TAB PO SCH (20:11)
[2018-12-30] MEDS ORDERED: Gabapentin 100 MG CAP PO SCH (21:00)
--- NOTE | 2018-12-31 01:16 | PRG ---
DATE OF SERVICE: 12/31/2018 SUBJECTIVE: Ms. Bills is an 83-year-old female, who comes to the ER after a ground level fall at home. She sustained multiple soft-tissue contusions and subarachnoid hemorrhage while on Eliquis. She was admitted yesterday in [facility] with repeated brain CT stable. She was transferred to surgical floor today. She has been doing good. GCS 15. Vitals stable. She voices no concern. She tolerated her regular diet. Urine is adequate. OBJECTIVE: GENERAL: She developed no fever or shortness of breath. LUNGS: Clear bilaterally. HEART: Regular rate and rhythm. ABDOMEN: Soft, nondistended. NEUROLOGIC: No focal neuro deficits. PLAN: Will be to continue supportive care. Continue DVT and gastritis prophylaxis. The patient wished to go home tomorrow, home health will be arranged later. Job ID: [id number] MTDD
[2018-12-31] MEDS: traMADol HCl 50 MG TAB PO PRN ×3 (02:09→10:14)
[2018-12-31] MEDS: Levothyroxine Sodium 25 MCG TAB PO SCH (05:24)
[2018-12-31] MEDS: Acetaminophen 325 MG TAB PO SCH ×3 (05:24→21:09)
[2018-12-31] MEDS: Insulin Regular 300 UNITS/3 ML VIAL SC PRN ×3 (05:44→16:26)
[2018-12-31] MEDS: Multivit, Therapeutic 1 TAB PO SCH (09:28)
[2018-12-31] MEDS: Senokot 8.6 MG TAB PO SCH (09:29)
[2018-12-31] MEDS: Gabapentin 100 MG CAP PO SCH ×2 (09:29→21:09)
[2018-12-31] MEDS: ALPRAZolam 0.25 MG TAB PO SCH ×2 (09:29→21:09)
[2018-12-31] MEDS: Amiodarone 200 MG TAB PO SCH (09:29)
[2018-12-31] MEDS: Metoprolol Tartrate 25 MG TAB PO SCH ×2 (09:30→21:09)
[2018-12-31] MEDS: Atorvastatin Calcium 20 MG TAB PO SCH (21:09)
[2018-12-31] MEDS: Famotidine 20 MG TAB PO SCH (21:09)
--- NOTE | 2018-12-31 23:48 | PRG ---
DATE OF SERVICE: 12/31/2018 SUBJECTIVE: Ms. Bills is an 83-year-old female who came to the ER after a ground level fall at home. She sustained multiple soft tissue contusion and subdural hemorrhage while on Eliquis. She has been doing good. She is able to work with PT/OT limitedly due to fatigue. GCS is 15. Vital signs stable. She voiced no concern. She agreed to go to rehab facility. [employer]id[employer] worker is working in that direction. OBJECTIVE: GENERAL: The patient is lying down in bed, in no acute distress. LUNGS: Clear bilaterally. HEART: Regular rate and rhythm. ABDOMEN: Soft, nondistended. NEUROLOGY: No focal neurology deficits. PLAN: Will be to continue supportive care, continue deep venous thrombosis and gastritis prophylaxis. The pillowcase maker will be working to arrange her placement in rehabilitation facility. Job ID: [id number]
[2019-01-01] MEDS: Levothyroxine Sodium 25 MCG TAB PO SCH (05:47)
[2019-01-01] MEDS: Acetaminophen 325 MG TAB PO SCH ×2 (05:47→14:08)
[2019-01-01] MEDS: ALPRAZolam 0.25 MG TAB PO SCH (08:37)
[2019-01-01] MEDS: Metoprolol Tartrate 25 MG TAB PO SCH (08:37)
[2019-01-01] MEDS: Gabapentin 100 MG CAP PO SCH (08:37)
[2019-01-01] MEDS: Amiodarone 200 MG TAB PO SCH (08:37)
[2019-01-01] MEDS: Senokot 8.6 MG TAB PO SCH (08:39)
[2019-01-01] MEDS: Multivit, Therapeutic 1 TAB PO SCH (08:39)
[2019-01-01] MEDS: traMADol HCl 50 MG TAB PO PRN (10:38)
[2019-01-01] MEDS ORDERED: Scopolamine 1.5 mg/72 hour Patch TD SCH (11:30)
[2019-01-01 11:50] VITALS: BP 126/73; TEMP 97.9
[2019-01-01] MEDS: Insulin Regular 300 UNITS/3 ML VIAL SC PRN (12:57)
--- NOTE | 2019-01-02 14:29 | DIS ---
DATE OF ADMISSION: 12/29/2018 DATE OF DISCHARGE: 01/01/2019 ADMISSION DIAGNOSES: 1. Status post ground level fall. 2. Syncope. 3. History of Eliquis and aspirin use. 4. Left forehead laceration. 5. Multiple contusions. 6. Skin tear. 7. History of hypertension, coronary artery disease, anxiety, and diabetes. 8. Subarachnoid hemorrhage. CONSULTATIONS: 1. Neurosurgery, Dr. Land. 2. Cardiology, Dr. Disla. PROCEDURES: None. SUMMARY: The patient is an 83-year-old woman, who reportedly had a syncopal episode, which she fell, hit her head. She was brought to the emergency department, where she underwent evaluation and examination and was noted to have a small subarachnoid hemorrhage. The patient had repeat head CT that showed that it was stable. She also underwent cardiology evaluation to include echocardiogram and carotid Doppler ultrasounds, which were unremarkable. The patient does have a history of paroxysmal atrial tachycardia, which may have contributed to her syncopal episode. She had no issues while in the hospital and she was able to work with Physical and Occupational Therapy, though she still required assistance doing her activities of daily living and the patient would eventually be discharged to rehab facility to continue her rehabilitation. At the time of discharge, the patient's pain was controlled. She was tolerating a diet. The patient will follow up with her Hand Winder as directed, Neurosurgery in 3 to 4 weeks, sooner as needed. She may follow up in the Trauma Clinic with her primary care provider, or return to the ER for her suture removal of her forehead lacerations. Job ID: [id number]
== END 2019-01-01 14:43 | DRG 83 ==
LOC: ERS 10:42 → IMCU/EMU 14:30 → SURG A 12-30 18:39
PROVIDERS: ADMIT Surgery; ATTEND Surgery
DX: S06.6X9A Traumatic subarachnoid hemorrhage with loss of consciousness of unspecified duration, initial encounter (principal); I42.9 Cardiomyopathy, unspecified; I10 Essential (primary) hypertension; F41.9 Anxiety disorder, unspecified; S01.81XA Laceration without foreign body of other part of head, initial encounter; S51.811A Laceration without foreign body of right forearm, initial encounter; E11.42 Type 2 diabetes mellitus with diabetic polyneuropathy; I25.10 Atherosclerotic heart disease of native coronary artery without angina pectoris; W18.30XA Fall on same level, unspecified, initial encounter; I48.0 Paroxysmal atrial fibrillation; R40.2362 Coma scale, best motor response, obeys commands, at arrival to emergency department; R40.2112 Coma scale, eyes open, never, at arrival to emergency department; R40.2252 Coma scale, best verbal response, oriented, at arrival to emergency department; R55 Syncope and collapse; Z88.2 Allergy status to sulfonamides; Z79.01 Long term (current) use of anticoagulants; Z79.4 Long term (current) use of insulin; Z95.0 Presence of cardiac pacemaker; Z90.710 Acquired absence of both cervix and uterus; Z88.8 Allergy status to other drugs, medicaments and biological substances; Z88.0 Allergy status to penicillin; Z79.899 Other long term (current) drug therapy; Z95.5 Presence of coronary angioplasty implant and graft; Z79.82 Long term (current) use of aspirin; Z86.73 Personal history of transient ischemic attack (TIA), and cerebral infarction without residual deficits; E78.5 Hyperlipidemia, unspecified
CPT/HCPCS: 12011; 36415; 36416; 70450; 71045; 72125; 80048; 80053; 82550; 83735; 84100; 84484; 85025; 85610; 85730; 90471; 90715; 93005; 93306; 93880; 96365; C9132; G0390; J1815; J2001; J3475; J3480; J7050

== ENCOUNTER 2019-01-26 09:11 | Observation (INO) | payer MEDICARE ==
[2019-01-26 09:40] LABS: #Eosinphils 0.1 thou/uL (0.0-0.7); #Lymphocytes 1.3 thou/uL (1.20-3.40); #Monocytes 0.4 thou/uL (0.11-0.59); #Neutrophils 2.8 thou/uL (1.40-6.50); %Basophils 0.1 % (0.0-1.0); %Eosinophils 1.9 % (0.0-10.0); %Lymphocytes 28.8 % (21.0-51.0); %Monocytes 8.9 % (0.0-10.0); %Neutrophils 60.4 % (42.0-75.0); Hemoglobin 12.7 g/dL (12.0-16.0); Mean Corpuscular HGB CONC 33.3 g/dL (32.0-36.0); Mean Corpuscular Hemoglobin 30.7 pg (27.0-31.0); Mean Corpuscular Volume 92.3 fL (78.0-98.0); Mean Platelet Volume 6.6 fL (7.4-10.4); Platelet Count 186 thou/uL (130-400); RBC Distribution Width 11.6 % (11.5-14.5); Red Blood Cell (RBC) Count 4.14 mill/uL (4.20-5.40); White Blood Cell (WBC) Count 4.7 thou/uL (4.8-10.8)
--- NOTE | 2019-01-26 09:46 | RAD ---
EXAM: CHEST ONE VIEW HISTORY: Chest pain COMPARISON: 12/29/2018 FINDINGS: A dual-lead right subclavian cardiac pacemaking device remains in place. Cardiac silhouette is magnif ied by projection but stable in size. The pulmonary vasculature is within normal limits. The lungs are clear. Degenerative changes are seen in the spine. Vascular calcifications are again noted in the thoracic aorta. Chest is stable compared to prior study. IMPRESSION: No acute cardiopulmonary process.
[2019-01-26] MEDS ORDERED: Nitroglycerin 2% Ointment 1 INCH/1 GM Packet ONE (09:58)
[2019-01-26 10:04] LABS: ALT (SGPT) 18 U/L (8-55); AST (SGOT) 27 U/L (5-34); Albumin 3.8 g/dL (3.4-4.8); Alkaline Phosphatase 160 U/L (40-110); Anion Gap 12 mmol/L (10-20); BUN (Urea Nitrogen) 15 mg/dL (9.8-20.1); Bilirubin, Total 0.6 mg/dL (0.2-1.2); CK (CPK) 42 U/L (29-168); Calc. Creatinine Clearance 0 mL/min (70-130); Calcium 9.6 mg/dL (7.8-10.44); Carbon Dioxide 24 mmol/L (23-31); Chloride 105 mmol/L (98-107); Estimated GFR-MDRD 35; Globulin 3.6 g/dL (2.4-3.5); Glucose 153 mg/dL (83-110); Lipase 56 U/L (8-78); Potassium 4.8 mmol/L (3.5-5.1); Protein, Total 7.4 g/dL (6.0-8.3); Sodium 136 mmol/L (136-145)
[2019-01-26 14:07] LABS: Troponin I Less than 0.010 ng/mL (< 0.028)
[2019-01-26 14:19] VITALS: BMI 21.1
[2019-01-26] MEDS ORDERED: Ondansetron PF 4 MG/2 ML Vial IVP PRN (14:27)
[2019-01-26] MEDS ORDERED: Ondansetron ODT 4 MG TAB SL PRN (14:27)
[2019-01-26 16:09] LABS: Troponin I Less than 0.010 ng/mL (< 0.028)
[2019-01-26] MEDS ORDERED: FLU VACC TS2019-20(65YR UP)/PF 180 MCG/0.5 ML SYRINGE IM ONE (18:00)
--- NOTE | 2019-01-26 19:31 | HP ---
PRIMARY CARE PHYSICIAN: Dr. Scales. CHIEF COMPLAINT: Chest pain. HISTORY OF PRESENT ILLNESS: Ms. Bills is an 84-year-old female with past medical history of hypertension, paroxysmal atrial fibrillation, diabetes mellitus type 2, cardiomyopathy, previous TIAs, and a pacemaker in place along with coronary artery disease, who had presented to the ED earlier today after she had experienced a new onset of chest pain that started late last night. She states during this time, she had also had palpitations and shortness of breath. She states shortly after her chest pain started, she had started noticing the pain radiate to her back. Therefore, she had wanted to be seen in the ED. Upon arriving, her serial troponins were found to be negative x3. Her portable chest x-ray was found to be normal. Her pacemaker was also interrogated. However, there were no abnormal episodes found on the study, but seemed to be working appropriately. She was given nitroglycerin paste and her pain actually resolved. She had then denied any fever, chills, headache, blurred vision, dizziness, any further chest pain, palpitations, shortness of breath, abdominal pain, nausea, or vomiting. She states she used to take Eliquis, however, due to a previous fall, which had caused a brain bleed, she had been taken off this. She states that over the last 2-1/2 weeks to 3 weeks, she had spent quite a bit of time in rehabilitation, which she had just left last prior to the symptoms starting. She states that she was doing well. She had followed up with Dr. Land recently who had cleared from her recent brain bleed, she also reports seeing a farm mortgage agent over at [facility]. REVIEW OF SYSTEMS: All other systems reviewed and found to be negative unless mentioned in the HPI. PAST MEDICAL HISTORY: Hypertension, hyperlipidemia, paroxysmal atrial fibrillation, coronary artery disease, diabetes mellitus type 2, previous TIAs x2, and cardiomyopathy. PAST SURGICAL HISTORY: Bilateral cataract surgery, appendectomy, bladder suspension, cardiac cath x2, stent placement x1, hysterectomy, pacemaker placement, laminectomy, and cholecystectomy. PSYCHIATRIC HISTORY: Includes anxiety. SOCIAL HISTORY: The patient denies alcohol, tobacco, or illicit drug use. KNOWN ALLERGIES: Cipro, codeine, penicillin and sulfa. CURRENT HOME MEDICATIONS: 1. Amiodarone 200 mg oral daily. 2. Aspirin 81 mg daily. 3. Levemir 12 units at bedtime and 22 units in the morning. 4. Levothyroxine 25 mcg p.o. daily. 5. Metoprolol 25 mg p.o. b.i.d. 6. Simvastatin 40 mg p.o. nightly. PHYSICAL EXAMINATION: VITAL SIGNS: Blood pressure 148/62, pulse 66, respirations 16, temperature 98, O2 saturation 99% on room air. GENERAL: The patient is awake, alert, and oriented x3. She is currently lying comfortably in bed and in no acute distress. HEENT: Atraumatic, normocephalic. Pupils are round and reactive to light. Extraocular muscles intact. Moist mucous membranes noted. NECK: Soft and supple. Trachea midline. CARDIOVASCULAR: Positive S1 and S2. Regular rate and rhythm. No murmur auscultated. Nitroglycerin paste is in place on the chest. RESPIRATORY: Clear to auscultation bilaterally. No wheezes, rales, or rhonchi. ABDOMEN: Soft, nontender. Bowel sounds present. EXTREMITIES: Moves all extremities equal. Pedal and radial pulses 2+ bilaterally. No edema noted. NEUROLOGIC: Cranial nerves 2 through 12 grossly intact. No focal deficits noted. Speech intact and normal. Gait not assessed. SKIN: Warm, dry, and intact. No rashes. No ulceration noted. PSYCHIATRIC: Good mood and affect. LABORATORY DATA: WBC 4.7, RBC 4.14, hemoglobin 12.7, hematocrit 38.2, platelets 186. Sodium 136, potassium 4.8, anion gap 12, BUN 15, creatinine 1.42, estimated GFR 35, glucose 153. Troponin less than 0.010 x 3. Lipase 56. DIAGNOSTIC IMAGING: Portable chest x-ray showed no acute cardiopulmonary process. ASSESSMENT/PLAN: 1. Chest pain and palpitations, the patient will likely undergo cardiac stress test in the a.m. Her serial troponins were found to be negative x3 and her pacemaker is found to be working appropriately with no further episodes of atrial fibrillation at this time. 2. History of atrial fibrillation, currently in a paced rhythm at this time. Continue home regimen. 3. Hypertension, currently stable. Monitor blood pressure and other vital signs closely and continue home regimen. 4. Diabetes mellitus type 2. Continue home insulin with frequent Accu-Cheks. 5. History of coronary artery disease. 6. Pacemaker placement. 7. History of transient ischemic attacks, currently stable at this time. 8. Deep venous thrombosis and gastrointestinal prophylaxis. With patient's fall risk and her recent brain bleed, she was taken off her home Eliquis. Therefore, we will add SCDs for deep venous thrombosis prophylaxis. 9. Code status, full code. 10. Surrogate decision maker is her daughter, Eileen. DISPOSITION: Pending further workup and clinical findings. Job ID: [id number]
[2019-01-26] MEDS: Metoprolol Tartrate 25 MG TAB PO SCH (20:27)
[2019-01-26] MEDS ORDERED: Insulin Glargine 12 UNITS in Pre-Filled Syringe 1 EACH SC SCH (21:00)
[2019-01-26] MEDS ORDERED: Aspirin 81 mg Enteric Coated Tablet PO SCH (21:00)
[2019-01-26] MEDS ORDERED: Atorvastatin Calcium 20 MG TAB PO SCH (21:00)
[2019-01-26] MEDS ORDERED: Non-Formulary Item 1 EACH (Insulin Detemir [Levemir] 12 UNIT) SQ SCH (21:00)
[2019-01-27] MEDS ORDERED: Levothyroxine Sodium 25 MCG TAB PO SCH (06:00)
[2019-01-27] MEDS ORDERED: Amiodarone 200 MG TAB PO SCH (09:00)
[2019-01-27] MEDS ORDERED: INSULIN DETEMIR SC SCH (09:00)
[2019-01-27] MEDS ORDERED: Insulin Glargine 22 UNITS in Pre-Filled Syringe 1 EACH SC SCH (09:00)
[2019-01-27] MEDS: Metoprolol Tartrate 25 MG TAB PO SCH (09:42)
--- NOTE | 2019-01-27 11:52 | NM ---
Radionucleotide stress and rest myocardial perfusion scan with CT attenuation correction and SPECT im aging Left ventricular wall motion evaluation and ejection fraction HISTORY: Adenosine protocol. There is homogeneous uptake of radiotracer throughout the left ventricul ar myocardium. No focal perfusion defect or reversibility. QGS analysis of gated SPECT images shows no focal wall motion abnormality. Ejection fraction calculat ed at 64%. IMPRESSION: Normal myocardial perfusion scan. Normal LVEF.
[2019-01-27 12:00] VITALS: TEMP 99
[2019-01-27 14:49] VITALS: BP 165/70
[2019-01-27] MEDS ORDERED: ADENOSINE 60 MG/20 ML VIAL ONE (15:01)
--- NOTE | 2019-01-27 23:03 | DIS ---
DATE OF ADMISSION: 01/26/2019 DATE OF DISCHARGE: 01/27/2019 DISCHARGE DIAGNOSES: 1. Chest pain, acute coronary syndrome was ruled out. The pain resolved. 2. History of atrial fibrillation, currently in a paced rhythm. 3. Hypertension. 4. Diabetes mellitus type 2. 5. History of coronary artery disease. 6. Pacemaker. 7. History of transient ischemic attack. HOSPITAL COURSE: The patient was an 84-year-old female with past medical history of hypertension, paroxysmal atrial fibrillation, diabetes mellitus type 2, cardiomyopathy, previous TIAs, and pacemaker in place along with coronary artery disease, who presented to the emergency room with complaints of chest pain, which started the night before. She had some palpitations and shortness of breath and after that, her chest pain started. The pain was radiating to the back. She came to the emergency room for further evaluation. Her serial troponins were found to be negative x3. Chest x-ray was normal. The pacer was interrogated and there were no any abnormal episodes found on the study. She was given nitroglycerin. She denied any fever, chills, headache, blurred vision, or dizziness. She has been taking Eliquis, but because of the falls, she has been taking off her Eliquis. She got admitted to the hospital. At the time of admission, her white count was normal. Hemoglobin was 12.7, creatinine 1.42. Lipase 56. The patient underwent adenosine stress test, which came back within normal limits. Her LVEF was estimated at 64%. She is doing well. PHYSICAL EXAMINATION: VITAL SIGNS: Blood pressure is 132/63, pulse is 64, respiratory rate is 16, temperature is 98.4, and O2 saturation is 99% on room air. LUNGS: Clear. HEART: S1 and S2 normal. No S3. No S4. ABDOMEN: Soft, nontender. She is seen and examined before she is discharged. MEDICATIONS: At the time of discharge, her home medications are: 1. Amiodarone 200 mg once a day. 2. Aspirin 81 mg once a day. 3. Levothyroxine 25 mcg once a day. 4. Metoprolol tartrate 25 mg twice a day. 5. Simvastatin 40 mg at bedtime. 6. Levemir 12 units q.p.m. and 22 units q.a.m. DIET: She is going to stay on 2000 calories ADA diet. ACTIVITIES: As tolerated. FOLLOWUP: She will follow up with Dr. Scales in 1 week. TIME SPENT: On this discharge, is less than 30 minutes. Job ID: [id number]
--- NOTE | 2019-01-31 05:31 | STRESS ---
Acquisition Time: 2019-01-27 10:10:14 Total Exercise Time: 00:04:00 Test Indications: CHEST PAIN Medications: Protocol: ADENOSINE Max HR: 061 BPM 44% of Pred: 137 BPM Max BP: 164/060 mmHG Max Work Load: 1.0 METS RESTING ECG: A-PACED AT 88 BPM WITH COMPLETE RIGHT BUNDLE BRANCH BLOCK SYMPTOMS: NONE NORMAL BP RESPONSE ECTOPY: NONE ECG STRESS: NO SIGNIFICANT CHANGES INTERPRETATION: NEGATIVE ECG/AWAIT NUCLEAR IMAGES FOR DEFINITIVE DIAGNOSIS Confirmed by MAGUI BATISTA ELLEN ([id number]) on 01/31/2019 5:31:28 AM Referred By: MAGUI PETTY Confirmed By:ZAY BATISTA PA-C
== END 2019-01-27 15:43 | disposition home or self-care (01) ==
LOC: ERS 09:11 → 2SW 14:14
PROVIDERS: ADMIT Internal Medicine; ATTEND Internal Medicine
DX: R07.89 Other chest pain (principal); I48.0 Paroxysmal atrial fibrillation; I10 Essential (primary) hypertension; E11.9 Type 2 diabetes mellitus without complications; I25.10 Atherosclerotic heart disease of native coronary artery without angina pectoris; I25.2 Old myocardial infarction; F41.9 Anxiety disorder, unspecified; I42.9 Cardiomyopathy, unspecified; Z86.73 Personal history of transient ischemic attack (TIA), and cerebral infarction without residual deficits; Z79.4 Long term (current) use of insulin; Z79.82 Long term (current) use of aspirin; Z79.899 Other long term (current) drug therapy; Z88.0 Allergy status to penicillin; Z88.1 Allergy status to other antibiotic agents; Z88.2 Allergy status to sulfonamides; Z88.8 Allergy status to other drugs, medicaments and biological substances; Z95.0 Presence of cardiac pacemaker; Z95.5 Presence of coronary angioplasty implant and graft
CPT/HCPCS: 71045; 78452; 80053; 82550; 82962; 83690; 84484 ×2; 85025; 93005; 93017; 94760; 99285; A9500; G0378 ×3; 36415; 36416; J0153; J1815

== ENCOUNTER 2019-03-13 08:45 | Outpatient (CLI) | payer MEDICARE ==
--- NOTE | 2019-03-13 09:38 | MMO ---
Bilateral MAMMO Bilat Diag [facility]. CLINICAL HISTORY: Patient is 84 years old and is seen for diagnostic exam. The patient has no family history of breast cancer. The patient has no personal history of cancer. VIEWS: The views performed were: bilateral craniocaudal with tomosynthesis; bilateral mediolateral oblique with tomosynthesis; bilateral mediolateral with tomosynthesis; and right mediolateral oblique. FILMS COMPARED: The present examination has been compared to a prior imaging study performed at [facility] on 03/13/2019. This study has been interpreted with the assistance of computer-aided detection. MAMMOGRAM FINDINGS: There are scattered fibroglandular densities. There are no suspicious masses, suspicious calcifications, or new areas of architectural distortion. IMPRESSION: THERE IS NO MAMMOGRAPHIC EVIDENCE OF MALIGNANCY. A ROUTINE FOLLOW-UP MAMMOGRAM IN 1 YEAR IS RECOMMENDED. THE RESULTS OF THIS EXAM WERE SENT TO THE PATIENT. ACR BI-RADS Category 1 - Negative MAMMOGRAPHY NOTE: 1. A negative mammogram report should not delay a biopsy if a dominant of clinically suspicious mass is present. 2. Approximately 10% to 15% of breast cancers are not detected by mammography. 3. Adenosis and dense breasts may obscure an underlying neoplasm. Reported by: Linda OCONNELL Electonically Signed: [id number]
--- NOTE | 2019-03-13 11:39 | ULT ---
ULTRASOUND LEFT BREAST: Date: 03/13/19 HISTORY: Palpable abnormality. Pain. Injury. Palpable foci of left breast after trauma. COMPARISON: Mammogram same date. FINDINGS: There are no abnormalities at the area of interest of left breast. Of note, the patient did have a re cent injury due to a fall with bruising. IMPRESSION: No abnormality appreciated. BI-RADS Category 2 - Benign findings. Annual mammographic screening is re commended. POS: OFF
== END 2019-03-13 08:46 | disposition home or self-care (01) ==
LOC: BICMAMMO 08:45
PROVIDERS: ATTEND Internal Medicine
DX: N63.20 Unspecified lump in the left breast, unspecified quadrant (principal)
CPT/HCPCS: 76642; 77066; G0279

== ENCOUNTER 2019-06-11 07:59 | Emergency (ER) | payer MEDICARE ==
[2019-06-11 08:29] LABS: #Lymphocytes 1.6 thou/uL (1.20-3.40); #Monocytes 0.8 thou/uL (0.11-0.59); #Neutrophils 9.1 thou/uL (1.40-6.50); %Basophils 0.3 % (0.0-1.0); %Eosinophils 0.4 % (0.0-10.0); %Monocytes 6.9 % (0.0-10.0); %Neutrophils 78.4 % (42.0-75.0); Hemoglobin 11.4 g/dL (12.0-16.0); Mean Corpuscular HGB CONC 32.8 g/dL (32.0-36.0); Mean Corpuscular Hemoglobin 29.6 pg (27.0-31.0); Mean Corpuscular Volume 90.4 fL (78.0-98.0); Mean Platelet Volume 7.1 fL (7.4-10.4); Platelet Count 215 thou/uL (130-400); Red Blood Cell (RBC) Count 3.85 mill/uL (4.20-5.40); White Blood Cell (WBC) Count 11.6 thou/uL (4.8-10.8)
--- NOTE | 2019-06-11 08:31 | RAD ---
EXAM: Single view of the chest HISTORY: Dizziness COMPARISON: 01/26/2019 FINDINGS: Single view of the chest shows a normal sized cardiomediastinal silhouette. The pacemaker is unchanged in position. There is no evidence of consolidation, mass, or pleural effusion. Degenerative changes are seen in the spine. IMPRESSION: No evidence of acute cardiopulmonary disease
[2019-06-11 08:41] LABS: ALT (SGPT) 61 U/L (8-55); AST (SGOT) 44 U/L (5-34); Albumin 3.3 g/dL (3.4-4.8); Alkaline Phosphatase 86 U/L (40-110); Anion Gap 12 mmol/L (10-20); BUN (Urea Nitrogen) 36 mg/dL (9.8-20.1); Bilirubin, Total 0.6 mg/dL (0.2-1.2); CK (CPK) 29 U/L (29-168); Calc. Creatinine Clearance 0 mL/min (70-130); Calcium 9.2 mg/dL (7.8-10.44); Carbon Dioxide 26 mmol/L (23-31); Chloride 98 mmol/L (98-107); Estimated GFR-MDRD 32; Glucose 478 mg/dL (83-110); Lipase 64 U/L (8-78); Potassium 4.9 mmol/L (3.5-5.1); Protein, Total 6.3 g/dL (6.0-8.3); Sodium 131 mmol/L (136-145)
--- NOTE | 2019-06-11 08:44 | RAD ---
EXAM: 2 views of the left hip HISTORY: Left hip pain COMPARISON: 01/04/2019 FINDINGS: 2 views of the hip shows no evidence of acute fracture or dislocation. No degenerative cho ges are seen. No soft tissue swelling is present. Vascular calcifications are seen. IMPRESSION: No evidence of acute osseous abnormality.
--- NOTE | 2019-06-11 08:44 | RAD ---
Exam: Single view of the pelvis HISTORY: Pelvic and hip pain COMPARISON: None FINDINGS: A single view the pelvis shows no evidence of acute fracture or dislocation. There is remod eling of the right inferior pubic ramus secondary to a remote healed fracture. No degenerative changes seen in either hip. Degenerative changes are seen in the lumbar spine. IMPRESSION: No evidence of acute osseous abnormality.
--- NOTE | 2019-06-11 08:47 | CT ---
EXAM: CT brain without contrast HISTORY: Dizziness and fall with head trauma COMPARISON: 12/30/2018 TECHNIQUE: Multiple contiguous axial images were obtained and a CT of the brain without contrast. FINDINGS: There are scattered hypodensities in the subcortical and periventricular white matter consi stent with small vessel ischemic disease. There is no evidence of hydrocephalus, intracranial hemorrhage, or extra-axial fluid collection. The calvarium and overlying soft tissues are unremarkable. The visualized paranasal sinuses and masto id air cells are well aerated. IMPRESSION: No evidence of acute intracranial abnormality
[2019-06-11] MEDS ORDERED: Ondansetron PF 4 MG/2 ML Vial ONE (08:49)
--- NOTE | 2019-06-11 08:53 | CT ---
EXAM: CT of the cervical spine without contrast HISTORY: Fall with head trauma and neck pain COMPARISON: 12/29/2018 TECHNIQUE: Multiple contiguous axial images were obtained in a CT of the cervical spine without contr ast. Sagittal and coronal reformats were performed. FINDINGS: The vertebral bodies and intervertebral discs demonstrate normal height and alignment witho ut fracture or subluxation. Moderate degenerative changes are seen throughout cervical spine. No prevertebral soft tissue swelling is seen. The posterior facets are well aligned. Normal alignment of the skull base with the cervical spine is seen. The lung apices and cervical soft tissues are unremarkable. IMPRESSION: Degenerative changes without evidence of acute osseous abnormality of the cervical spine.
[2019-06-11] MEDS ORDERED: traMADol HCl 50 MG TAB ONE (09:41)
[2019-06-11 10:51] LABS: Bilirubin Negative (Negative); Blood, Urine Trace (Negative); Clarity Clear (Clear); Glucose, Urine (Dipstick) Greater than 1000 mg/dL (Negative); Leukocyte 75 Leu/uL (Negative); Nitrite Negative (Negative); Protein, Urine (Dipstick) Negative (Neg-Trace); RBC/HPF 0-3 HPF (0-3); Squamous Epithelial None Seen HPF (0-3); Urobilinogen Normal mg/dL (Less than 2)
[2019-06-11 10:52] LABS: Bacteria/HPF 1+ HPF (None Seen)
== END 2019-06-11 11:33 | disposition home or self-care (01) ==
LOC: ERS 07:59
DX: M25.552 Pain in left hip (principal); E86.0 Dehydration; N39.0 Urinary tract infection, site not specified; E11.65 Type 2 diabetes mellitus with hyperglycemia; I48.91 Unspecified atrial fibrillation; I10 Essential (primary) hypertension; I42.9 Cardiomyopathy, unspecified; E11.40 Type 2 diabetes mellitus with diabetic neuropathy, unspecified; F41.9 Anxiety disorder, unspecified; Z86.73 Personal history of transient ischemic attack (TIA), and cerebral infarction without residual deficits; Z79.82 Long term (current) use of aspirin; Z79.4 Long term (current) use of insulin; Z79.899 Other long term (current) drug therapy; W18.30XA Fall on same level, unspecified, initial encounter
CPT/HCPCS: 36415; 51701; 70450; 71045; 72125; 72170; 80053; 81003; 81015; 82010; 82550; 83690; 83880; 84484; 85025; 93005; 96361; 96374; A4353; J2405

== ENCOUNTER 2020-08-25 19:21 | Observation (INO) | payer MEDICARE ==
[2020-08-25 20:00] LABS: #Eosinphils 0.1 thou/uL (0.0-0.7); #Lymphocytes 1.5 thou/uL (1.20-3.40); #Monocytes 0.7 thou/uL (0.11-0.59); #Neutrophils 5.4 thou/uL (1.40-6.50); %Basophils 0.4 % (0.0-1.0); %Eosinophils 1.4 % (0.0-10.0); %Lymphocytes 19.4 % (21.0-51.0); %Monocytes 9.1 % (0.0-10.0); %Neutrophils 69.7 % (42.0-75.0); Hemoglobin 13.4 g/dL (12.0-16.0); Mean Corpuscular HGB CONC 33.8 g/dL (32.0-36.0); Mean Corpuscular Hemoglobin 30.2 pg (27.0-31.0); Mean Corpuscular Volume 89.6 fL (78.0-98.0); Mean Platelet Volume 7.2 fL (7.4-10.4); Platelet Count 159 thou/uL (130-400); RBC Distribution Width 13.2 % (11.5-14.5); Red Blood Cell (RBC) Count 4.43 mill/uL (4.20-5.40); White Blood Cell (WBC) Count 7.7 thou/uL (4.8-10.8)
[2020-08-25 20:22] LABS: ALT (SGPT) 17 U/L (8-55); AST (SGOT) 28 U/L (5-34); Albumin 3.8 g/dL (3.4-4.8); Alkaline Phosphatase 91 U/L (40-110); Anion Gap 14 mmol/L (10-20); BUN (Urea Nitrogen) 24 mg/dL (9.8-20.1); Bilirubin, Total 0.6 mg/dL (0.2-1.2); Calc. Creatinine Clearance 0 mL/min (70-130); Calcium 11.9 mg/dL (7.8-10.44); Carbon Dioxide 23 mmol/L (23-31); Chloride 105 mmol/L (98-107); Globulin 3.8 g/dL (2.4-3.5); Glucose 67 mg/dL (83-110); Potassium 4.6 mmol/L (3.5-5.1); Protein, Total 7.6 g/dL (5.8-8.1); Sodium 137 mmol/L (136-145)
[2020-08-25] MEDS ORDERED: Aspirin Chewable 81 MG TAB ONE (20:51)
[2020-08-25 21:57] LABS: SARS-CoV-2 NAA Rapid Test Not Detected (NotDetected)
[2020-08-25] MEDS ORDERED: Acetaminophen 325 MG TAB PO PRN (22:34)
[2020-08-25] MEDS ORDERED: HumaLOG 300 UNITS/3 ML VIAL SC PRN (22:44)
[2020-08-25] MEDS ORDERED: Dextrose 5 % And 0.9 % NaCl 1,000 ML IV SCH (23:00)
[2020-08-25 23:33] LABS: Troponin I 0.021 ng/mL (< 0.028)
[2020-08-26 00:44] VITALS: BMI 21.2
[2020-08-26 02:18] LABS: Troponin I 0.014 ng/mL (< 0.028)
[2020-08-26] MEDS ORDERED: Levothyroxine Sodium 25 MCG TAB PO SCH (06:00)
[2020-08-26 06:09] LABS: #Eosinphils 0.1 thou/uL (0.0-0.7); #Lymphocytes 1.6 thou/uL (1.20-3.40); #Monocytes 0.3 thou/uL (0.11-0.59); #Neutrophils 1.9 thou/uL (1.40-6.50); %Basophils 0.1 % (0.0-1.0); %Eosinophils 2.6 % (0.0-10.0); %Monocytes 7.9 % (0.0-10.0); %Neutrophils 48.4 % (42.0-75.0); Hemoglobin 11.4 g/dL (12.0-16.0); Mean Corpuscular HGB CONC 33.4 g/dL (32.0-36.0); Mean Platelet Volume 7.9 fL (7.4-10.4); Platelet Count 110 thou/uL (130-400); Platelet Morphology Comment Appears Decreased; RBC Distribution Width 13.3 % (11.5-14.5); Red Blood Cell (RBC) Count 3.79 mill/uL (4.20-5.40); White Blood Cell (WBC) Count 3.8 thou/uL (4.8-10.8)
[2020-08-26 06:15] LABS: Anion Gap 9 mmol/L (10-20); BUN (Urea Nitrogen) 25 mg/dL (9.8-20.1); Calc. Creatinine Clearance 24 mL/min (70-130); Calcium 11.1 mg/dL (7.8-10.44); Carbon Dioxide 24 mmol/L (23-31); Chloride 108 mmol/L (98-107); Glucose 191 mg/dL (83-110); Potassium 4.5 mmol/L (3.5-5.1); Sodium 136 mmol/L (136-145)
[2020-08-26 08:37] VITALS: BP 124/57; TEMP 97.8
[2020-08-26] MEDS ORDERED: Amiodarone 200 MG TAB PO SCH (09:00)
[2020-08-26] MEDS ORDERED: Enoxaparin Sodium 30 MG/0.3 ML SYRINGE SC SCH (09:00)
[2020-08-26] MEDS ORDERED: Famotidine 20 MG TAB PO SCH (09:00)
[2020-08-26] MEDS ORDERED: Lantus 1000 UNITS/10 ML VIAL SC SCH (21:00)
[2020-08-26] MEDS ORDERED: Aspirin 81 mg Enteric Coated Tablet PO SCH (21:00)
== END 2020-08-26 11:32 | disposition home or self-care (01) ==
LOC: ERS 19:21 → 2SW 20:56
PROVIDERS: ADMIT Internal Medicine; ATTEND Internal Medicine
DX: E11.649 Type 2 diabetes mellitus with hypoglycemia without coma (principal); E83.52 Hypercalcemia; I12.9 Hypertensive chronic kidney disease with stage 1 through stage 4 chronic kidney disease, or unspecified chronic kidney disease; E11.22 Type 2 diabetes mellitus with diabetic chronic kidney disease; N18.30 Chronic kidney disease, stage 3 unspecified; N17.9 Acute kidney failure, unspecified; I25.10 Atherosclerotic heart disease of native coronary artery without angina pectoris; I44.30 Unspecified atrioventricular block; I48.20 Chronic atrial fibrillation, unspecified; Z86.73 Personal history of transient ischemic attack (TIA), and cerebral infarction without residual deficits; Z79.4 Long term (current) use of insulin; Z79.82 Long term (current) use of aspirin; Z79.899 Other long term (current) drug therapy; Z88.0 Allergy status to penicillin; Z88.1 Allergy status to other antibiotic agents; Z88.2 Allergy status to sulfonamides; Z88.5 Allergy status to narcotic agent; Z88.8 Allergy status to other drugs, medicaments and biological substances; Z95.0 Presence of cardiac pacemaker; Z20.822 Contact with and (suspected) exposure to COVID-19
CPT/HCPCS: 0240U; 71045; 80048; 80053; 82962; 83880; 84484 ×3; 85025 ×2; 93005; 99285; G0378 ×2; 36415; 36416; J1815

== ENCOUNTER 2020-12-20 00:15 | Observation (INO) | payer MEDICARE ==
[2020-12-20 01:00] LABS: #Eosinphils 0.1 thou/uL (0.0-0.7); #Lymphocytes 1.9 thou/uL (1.20-3.40); #Monocytes 0.6 thou/uL (0.11-0.59); #Neutrophils 2.9 thou/uL (1.40-6.50); %Basophils 0.6 % (0.0-1.0); %Eosinophils 2.4 % (0.0-10.0); %Lymphocytes 34.2 % (21.0-51.0); %Neutrophils 51.8 % (42.0-75.0); Hemoglobin 11.3 g/dL (12.0-16.0); Mean Corpuscular HGB CONC 33.5 g/dL (32.0-36.0); Mean Corpuscular Hemoglobin 30.6 pg (27.0-31.0); Mean Corpuscular Volume 91.2 fL (78.0-98.0); Platelet Count 201 thou/uL (130-400); RBC Distribution Width 13.4 % (11.5-14.5); White Blood Cell (WBC) Count 5.5 thou/uL (4.8-10.8)
[2020-12-20 01:25] LABS: ALT (SGPT) 13 U/L (8-55); AST (SGOT) 21 U/L (5-34); Albumin 3.4 g/dL (3.4-4.8); Alkaline Phosphatase 89 U/L (40-110); Anion Gap 10 mmol/L (10-20); BUN (Urea Nitrogen) 38 mg/dL (9.8-20.1); Bilirubin, Total 0.5 mg/dL (0.2-1.2); CK (CPK) 37 U/L (29-168); Calc. Creatinine Clearance 0 mL/min (70-130); Calcium 9.4 mg/dL (7.8-10.44); Carbon Dioxide 22 mmol/L (23-31); Chloride 108 mmol/L (98-107); Globulin 3.4 g/dL (2.4-3.5); Glucose 83 mg/dL (83-110); Protein, Total 6.8 g/dL (5.8-8.1); Sodium 135 mmol/L (136-145)
[2020-12-20 02:55] LABS: Magnesium 1.9 mg/dL (1.6-2.6)
[2020-12-20 05:13] LABS: Troponin I Less than 0.010 ng/mL (< 0.028)
[2020-12-20 07:38] LABS: Troponin I Less than 0.010 ng/mL (< 0.028)
[2020-12-20] MEDS ORDERED: Acetaminophen 325 MG TAB PO PRN (08:54)
[2020-12-20] MEDS ORDERED: Ondansetron ODT 4 MG TAB PO PRN (08:54)
[2020-12-20] MEDS ORDERED: Acetaminophen 650 MG Suppository PR PRN (08:54)
[2020-12-20] MEDS ORDERED: Ondansetron PF 4 MG/2 ML Vial IVP PRN (08:54)
[2020-12-20 09:24] LABS: INR-International Normal Ratio 1.3; Prothrombin Time 16.5 sec (12.0-14.7)
[2020-12-20 09:25] LABS: PTT 38.5 sec (22.9-36.1)
[2020-12-20 09:33] LABS: Magnesium 1.9 mg/dL (1.6-2.6); Phosphorus 3.9 mg/dL (2.3-4.7)
[2020-12-20] MEDS ORDERED: Nitroglycerin 0.4 MG TAB (25 Tab Bottle) SL PRN (09:46)
[2020-12-20] MEDS ORDERED: HumaLOG 300 UNITS/3 ML VIAL SC PRN (09:53)
[2020-12-20] MEDS ORDERED: Dextrose 5% in Water 1,000 ML IV PRN (09:53)
[2020-12-20] MEDS ORDERED: Dextrose 50% Abboject 50 ML SYRINGE SLOW IVP PRN (09:53)
[2020-12-20 10:35] LABS: Hemoglobin A1c 6.8 % (4.0-6.0)
[2020-12-20 10:57] LABS: Troponin I Less than 0.010 ng/mL (< 0.028)
[2020-12-20 13:58] LABS: Bilirubin Negative (Negative); Blood, Urine Negative (Negative); Clarity Clear (Clear); Glucose, Urine (Dipstick) Normal (Negative); Ketone, Urine Negative (Negative); Leukocyte 25 Leu/uL (Negative); Nitrite Negative (Negative); Protein, Urine (Dipstick) Negative (Neg-Trace); RBC/HPF 0-3 HPF (0-3); Squamous Epithelial 0-3 HPF (0-3); Urobilinogen Normal mg/dL (Less than 2); WBC/HPF 0-3 HPF (0-3)
[2020-12-20 13:59] LABS: Bacteria/HPF 1+ HPF (None Seen)
[2020-12-20 15:28] LABS: SARS-CoV-2 PCR by NAA Not Detected (NotDetected)
== END 2020-12-20 16:44 | disposition home or self-care (01) ==
LOC: ERS 00:15 → ERHOLD 02:34
PROVIDERS: ADMIT Internal Medicine; ATTEND Internal Medicine
DX: R07.89 Other chest pain (principal); I48.0 Paroxysmal atrial fibrillation; I25.10 Atherosclerotic heart disease of native coronary artery without angina pectoris; E03.9 Hypothyroidism, unspecified; E78.5 Hyperlipidemia, unspecified; I12.9 Hypertensive chronic kidney disease with stage 1 through stage 4 chronic kidney disease, or unspecified chronic kidney disease; E11.22 Type 2 diabetes mellitus with diabetic chronic kidney disease; N18.30 Chronic kidney disease, stage 3 unspecified; I70.0 Atherosclerosis of aorta; I49.5 Sick sinus syndrome; Z86.73 Personal history of transient ischemic attack (TIA), and cerebral infarction without residual deficits; Z79.01 Long term (current) use of anticoagulants; Z79.4 Long term (current) use of insulin; Z79.82 Long term (current) use of aspirin; Z79.899 Other long term (current) drug therapy; Z88.0 Allergy status to penicillin; Z88.1 Allergy status to other antibiotic agents; Z88.2 Allergy status to sulfonamides; Z88.5 Allergy status to narcotic agent; Z88.8 Allergy status to other drugs, medicaments and biological substances; Z95.0 Presence of cardiac pacemaker; Z95.5 Presence of coronary angioplasty implant and graft; Z20.822 Contact with and (suspected) exposure to COVID-19
CPT/HCPCS: 71045; 80053; 81001; 82550; 83036; 83735; 83880; 84100; 84484 ×2; 85025; 85610; 85730; 93005; U0003; U0005; 36415; G0378

== ENCOUNTER 2020-12-31 10:01 | Outpatient (CLI) | payer MEDICARE ==
[2020-12-31 10:44] LABS: Hemoglobin 12.6 g/dL (12.0-15.5); Mean Corpuscular HGB CONC 31.6 g/dL (32.0-36.0); Mean Corpuscular Hemoglobin 28.9 pg (27.0-33.0); Mean Corpuscular Volume 91.5 fl (81.6-98.3); Platelet Count 218 10x3/uL (150-450); RBC Distribution Width 15.3 % (11.5-14.5); Red Blood Cell (RBC) Count 4.36 10x6/uL (3.90-5.03); White Blood Cell (WBC) Count 5.3 10x3/uL (3.5-10.5)
[2020-12-31 11:00] LABS: INR-International Normal Ratio 1.1; Prothrombin Time 12.3 sec (9.5-12.1)
[2020-12-31 11:05] LABS: ALT (SGPT) 14 U/L (8-55); AST (SGOT) 22 U/L (5-34); Albumin 3.7 g/dL (3.4-4.8); Alkaline Phosphatase 81 U/L (40-110); Anion Gap 15 mmol/L (10-20); BUN (Urea Nitrogen) 44 mg/dL (9.8-20.1); Bilirubin, Total 0.8 mg/dL (0.2-1.2); Calc. Creatinine Clearance 0 mL/min (70-130); Calcium 9.8 mg/dL (7.8-10.44); Carbon Dioxide 19 mmol/L (23-31); Chloride 106 mmol/L (98-107); Globulin 3.8 g/dL (2.4-3.5); Glucose 128 mg/dL (83-110); Potassium 5.3 mmol/L (3.5-5.1); Protein, Total 7.5 g/dL (5.8-8.1); Sodium 135 mmol/L (136-145)
[2021-01-01 01:01] LABS: SARS-CoV-2 PCR by NAA Not Detected (NotDetected)
== END 2020-12-31 10:02 | disposition home or self-care (01) ==
LOC: LABBT 10:01
PROVIDERS: ATTEND Internal Medicine Cardiovascular Disease
DX: Z01.812 Encounter for preprocedural laboratory examination (principal); I49.5 Sick sinus syndrome; T82.111A Breakdown (mechanical) of cardiac pulse generator (battery), initial encounter; Z20.822 Contact with and (suspected) exposure to COVID-19
CPT/HCPCS: 80053; 85027; 85610; U0003; U0005

== ENCOUNTER 2021-01-03 01:41 | Inpatient (IN) | payer MEDICARE ==
[2021-01-03] MEDS ORDERED: Acetaminophen 500 MG TAB ONE (02:05)
[2021-01-03 02:36] LABS: #Basophils 0.1 thou/uL (0.0-0.2); #Eosinphils 0.1 thou/uL (0.0-0.7); #Lymphocytes 2.1 thou/uL (1.20-3.40); #Monocytes 0.7 thou/uL (0.11-0.59); #Neutrophils 4.6 thou/uL (1.40-6.50); %Basophils 0.7 % (0.0-1.0); %Eosinophils 1.1 % (0.0-10.0); %Lymphocytes 28.1 % (21.0-51.0); %Neutrophils 61.1 % (42.0-75.0); Mean Corpuscular HGB CONC 33.8 g/dL (32.0-36.0); Mean Corpuscular Hemoglobin 30.8 pg (27.0-31.0); Mean Corpuscular Volume 91.1 fL (78.0-98.0); Mean Platelet Volume 6.4 fL (7.4-10.4); Platelet Count 246 thou/uL (130-400); RBC Distribution Width 13.9 % (11.5-14.5); Red Blood Cell (RBC) Count 4.21 mill/uL (4.20-5.40); White Blood Cell (WBC) Count 7.6 thou/uL (4.8-10.8)
[2021-01-03 02:58] LABS: ALT (SGPT) 15 U/L (8-55); AST (SGOT) 23 U/L (5-34); Albumin 3.5 g/dL (3.4-4.8); Alkaline Phosphatase 79 U/L (40-110); Anion Gap 12 mmol/L (10-20); BUN (Urea Nitrogen) 50 mg/dL (9.8-20.1); Bilirubin, Total 0.7 mg/dL (0.2-1.2); Calc. Creatinine Clearance 0 mL/min (70-130); Calcium 9.6 mg/dL (7.8-10.44); Carbon Dioxide 18 mmol/L (23-31); Chloride 108 mmol/L (98-107); Globulin 3.6 g/dL (2.4-3.5); Glucose 63 mg/dL (83-110); Potassium 4.4 mmol/L (3.5-5.1); Protein, Total 7.1 g/dL (5.8-8.1); Sodium 134 mmol/L (136-145)
[2021-01-03] MEDS ORDERED: Furosemide 20 MG/2 ML VIAL ONE (03:07)
[2021-01-03] MEDS ORDERED: Dextrose 50% Abboject 50 ML SYRINGE ONE (04:21)
[2021-01-03] MEDS ORDERED: Dextrose 5% in Water 1,000 ML IV PRN (04:34)
[2021-01-03] MEDS ORDERED: Acetaminophen 325 MG TAB PO PRN (04:34)
[2021-01-03] MEDS ORDERED: Dextrose 50% Abboject 50 ML SYRINGE SLOW IVP PRN (04:34)
[2021-01-03 05:28] LABS: Bacteria/HPF None Seen HPF (None Seen); Bilirubin Negative (Negative); Blood, Urine Negative (Negative); Clarity Clear (Clear); Glucose, Urine (Dipstick) Normal (Negative); Ketone, Urine Negative (Negative); Leukocyte 25 Leu/uL (Negative); Nitrite Negative (Negative); Protein, Urine (Dipstick) Negative (Neg-Trace); RBC/HPF 0-3 HPF (0-3); Specific Gravity, Urine 1.013 (1.002-1.036); Squamous Epithelial 0-3 HPF (0-3); Urobilinogen Normal mg/dL (Less than 2); WBC/HPF 0-3 HPF (0-3)
[2021-01-03] MEDS ORDERED: Furosemide 40 MG TAB PO SCH (07:30)
[2021-01-03] MEDS: Levothyroxine Sodium 50 MCG TAB PO SCH (10:00)
[2021-01-03] MEDS ORDERED: Nitroglycerin 0.4 MG TAB (25 Tab Bottle) SL PRN (10:31)
[2021-01-03] MEDS ORDERED: Metoprolol Tartrate 50 MG TAB ONE (11:36)
[2021-01-03] MEDS ORDERED: Aspirin 81 mg Enteric Coated Tablet ONE (11:36)
[2021-01-03] MEDS: Amiodarone 200 MG TAB PO SCH ×2 (11:55→20:47)
[2021-01-03] MEDS: Aspirin 81 mg Enteric Coated Tablet PO SCH (11:55)
[2021-01-03] MEDS: Metoprolol Tartrate 50 MG TAB PO SCH ×2 (11:55→20:47)
[2021-01-03] MEDS: Furosemide 40 MG/4 ML VIAL SLOW IVP SCH (15:00)
[2021-01-03] MEDS ORDERED: Furosemide 40 MG/4 ML VIAL ONE (15:14)
[2021-01-03 17:00] VITALS: BMI 22.9
[2021-01-03] MEDS: Apixaban 2.5 MG TAB PO SCH (20:47)
[2021-01-04 04:14] LABS: Hemoglobin A1c 6.7 % (4.0-6.0)
[2021-01-04 04:35] LABS: ALT (SGPT) 13 U/L (8-55); AST (SGOT) 22 U/L (5-34); Albumin 3.3 g/dL (3.4-4.8); Alkaline Phosphatase 82 U/L (40-110); Anion Gap 13 mmol/L (10-20); BUN (Urea Nitrogen) 45 mg/dL (9.8-20.1); Calc. Creatinine Clearance 20 mL/min (70-130); Calcium 9.6 mg/dL (7.8-10.44); Carbon Dioxide 25 mmol/L (23-31); Chloride 104 mmol/L (98-107); Globulin 3.4 g/dL (2.4-3.5); Glucose 127 mg/dL (83-110); Potassium 4.1 mmol/L (3.5-5.1); Protein, Total 6.7 g/dL (5.8-8.1); Sodium 138 mmol/L (136-145)
[2021-01-04 05:03] LABS: Eosinophils 2 % (0-10); Hemoglobin 12.7 g/dL (12.0-16.0); Lymphocytes 37 % (21-51); MDiff Complete? YES; Mean Corpuscular HGB CONC 31.9 g/dL (32.0-36.0); Mean Corpuscular Volume 90.8 fL (78.0-98.0); Mean Platelet Volume 6.3 fL (7.4-10.4); Monocytes 2 % (0-10); Neutrophil 57 % (42-75); Platelet Count 193 thou/uL (130-400); Platelet Morphology Comment Appears Adequate; RBC Distribution Width 13.8 % (11.5-14.5); RBC Morphology Normal; Reactive Lymphocytes 2 % (0-10); Red Blood Cell (RBC) Count 4.38 mill/uL (4.20-5.40); White Blood Cell (WBC) Count 5.1 thou/uL (4.8-10.8)
[2021-01-04] MEDS: Levothyroxine Sodium 50 MCG TAB PO SCH (06:29)
[2021-01-04] MEDS: Furosemide 40 MG/4 ML VIAL SLOW IVP SCH ×2 (06:29→15:25)
[2021-01-04] MEDS: Metoprolol Tartrate 50 MG TAB PO SCH ×2 (09:42→20:33)
[2021-01-04] MEDS: Aspirin 81 mg Enteric Coated Tablet PO SCH (09:42)
[2021-01-04] MEDS: Apixaban 2.5 MG TAB PO SCH ×2 (09:42→20:33)
[2021-01-04] MEDS: Amiodarone 200 MG TAB PO SCH ×2 (09:42→20:33)
[2021-01-04 21:50] LABS: Anion Gap 17 mmol/L (10-20); BUN (Urea Nitrogen) 44 mg/dL (9.8-20.1); Calc. Creatinine Clearance 18 mL/min (70-130); Calcium 9.4 mg/dL (7.8-10.44); Carbon Dioxide 26 mmol/L (23-31); Chloride 98 mmol/L (98-107); Glucose 227 mg/dL (83-110); Potassium 3.8 mmol/L (3.5-5.1); Sodium 137 mmol/L (136-145)
[2021-01-05] MEDS: Furosemide 40 MG/4 ML VIAL SLOW IVP SCH ×2 (06:26→14:00)
[2021-01-05] MEDS: Levothyroxine Sodium 50 MCG TAB PO SCH (06:26)
[2021-01-05] MEDS: Aspirin 81 mg Enteric Coated Tablet PO SCH (09:19)
[2021-01-05] MEDS: Apixaban 2.5 MG TAB PO SCH ×2 (09:19→20:12)
[2021-01-05] MEDS: Amiodarone 200 MG TAB PO SCH ×2 (09:19→20:12)
[2021-01-05] MEDS: Metoprolol Tartrate 50 MG TAB PO SCH ×2 (09:20→20:12)
[2021-01-05] MEDS: HumaLOG 300 UNITS/3 ML VIAL SC PRN (14:00)
[2021-01-06 05:01] LABS: #Eosinphils 0.1 thou/uL (0.0-0.7); #Lymphocytes 1.9 thou/uL (1.20-3.40); #Monocytes 0.8 thou/uL (0.11-0.59); %Basophils 0.3 % (0.0-1.0); %Eosinophils 0.8 % (0.0-10.0); %Lymphocytes 28.1 % (21.0-51.0); %Monocytes 11.2 % (0.0-10.0); %Neutrophils 59.6 % (42.0-75.0); Hemoglobin 13.5 g/dL (12.0-16.0); Mean Corpuscular HGB CONC 33.2 g/dL (32.0-36.0); Mean Corpuscular Hemoglobin 29.8 pg (27.0-31.0); Mean Corpuscular Volume 89.7 fL (78.0-98.0); Mean Platelet Volume 6.5 fL (7.4-10.4); Platelet Count 207 thou/uL (130-400); RBC Distribution Width 13.6 % (11.5-14.5); Red Blood Cell (RBC) Count 4.52 mill/uL (4.20-5.40); White Blood Cell (WBC) Count 6.7 thou/uL (4.8-10.8)
[2021-01-06 05:21] LABS: Anion Gap 16 mmol/L (10-20); BUN (Urea Nitrogen) 47 mg/dL (9.8-20.1); Calc. Creatinine Clearance 17 mL/min (70-130); Calcium 9.3 mg/dL (7.8-10.44); Carbon Dioxide 28 mmol/L (23-31); Chloride 99 mmol/L (98-107); Glucose 220 mg/dL (83-110); Potassium 3.5 mmol/L (3.5-5.1); Sodium 139 mmol/L (136-145)
[2021-01-06] MEDS: Furosemide 40 MG/4 ML VIAL SLOW IVP SCH (06:03)
[2021-01-06] MEDS: Levothyroxine Sodium 50 MCG TAB PO SCH (06:03)
[2021-01-06] MEDS: HumaLOG 300 UNITS/3 ML VIAL SC PRN ×2 (07:20→18:45)
[2021-01-06] MEDS: Aspirin 81 mg Enteric Coated Tablet PO SCH (08:53)
[2021-01-06] MEDS: Metoprolol Tartrate 50 MG TAB PO SCH ×2 (08:54→20:16)
[2021-01-06] MEDS: Amiodarone 200 MG TAB PO SCH ×2 (08:54→20:14)
[2021-01-06] MEDS: Apixaban 2.5 MG TAB PO SCH ×2 (08:54→20:13)
[2021-01-06 14:27] LABS: Troponin I Less than 0.010 ng/mL (< 0.028)
[2021-01-06 19:20] LABS: Troponin I Less than 0.010 ng/mL (< 0.028)
[2021-01-06 22:04] LABS: Troponin I Less than 0.010 ng/mL (< 0.028)
[2021-01-07] MEDS: HumaLOG 300 UNITS/3 ML VIAL SC PRN ×2 (00:07→05:40)
[2021-01-07] MEDS: Levothyroxine Sodium 50 MCG TAB PO SCH (05:39)
[2021-01-07 08:06] VITALS: TEMP 97.3
[2021-01-07] MEDS: Amiodarone 200 MG TAB PO SCH (09:21)
[2021-01-07] MEDS: Aspirin 81 mg Enteric Coated Tablet PO SCH (09:21)
[2021-01-07] MEDS: Apixaban 2.5 MG TAB PO SCH (09:21)
[2021-01-07] MEDS: Metoprolol Tartrate 50 MG TAB PO SCH (09:21)
[2021-01-07 11:29] VITALS: BP 113/56
== END 2021-01-07 13:11 | disposition home or self-care (01) | DRG 291 ==
LOC: ERS 01:41 → ERHOLD 04:14 → 2NO 16:03
PROVIDERS: ADMIT Internal Medicine; ATTEND Internal Medicine
DX: I13.0 Hypertensive heart and chronic kidney disease with heart failure and stage 1 through stage 4 chronic kidney disease, or unspecified chronic kidney disease (principal); I50.33 Acute on chronic diastolic (congestive) heart failure; N17.9 Acute kidney failure, unspecified; N18.4 Chronic kidney disease, stage 4 (severe); T38.3X5A Adverse effect of insulin and oral hypoglycemic [antidiabetic] drugs, initial encounter; I49.5 Sick sinus syndrome; E03.9 Hypothyroidism, unspecified; E11.40 Type 2 diabetes mellitus with diabetic neuropathy, unspecified; R07.9 Chest pain, unspecified; J44.9 Chronic obstructive pulmonary disease, unspecified; E11.649 Type 2 diabetes mellitus with hypoglycemia without coma; E11.22 Type 2 diabetes mellitus with diabetic chronic kidney disease; I48.0 Paroxysmal atrial fibrillation; I42.9 Cardiomyopathy, unspecified; E78.5 Hyperlipidemia, unspecified; E86.0 Dehydration; Z87.820 Personal history of traumatic brain injury; Z91.81 History of falling; Z90.49 Acquired absence of other specified parts of digestive tract; Z90.710 Acquired absence of both cervix and uterus; Z88.1 Allergy status to other antibiotic agents; Z88.5 Allergy status to narcotic agent; Z88.0 Allergy status to penicillin; Z88.2 Allergy status to sulfonamides; Z88.8 Allergy status to other drugs, medicaments and biological substances; Z79.82 Long term (current) use of aspirin; Z79.890 Hormone replacement therapy; Z79.4 Long term (current) use of insulin; Z79.899 Other long term (current) drug therapy; Z95.810 Presence of automatic (implantable) cardiac defibrillator; Z95.5 Presence of coronary angioplasty implant and graft; Z86.73 Personal history of transient ischemic attack (TIA), and cerebral infarction without residual deficits
CPT/HCPCS: 36415; 36416; 70450; 71045; 72125; 80048; 80053; 81003; 81015; 83036; 83880; 84443; 84484; 85007; 85025; 85027; 85610; 93005; 93010; 93798; 96374; J1815; J1940; U0003; U0005

== ENCOUNTER 2021-01-14 10:31 | Outpatient (CLI) | payer MEDICARE ==
[2021-01-14 12:48] LABS: Hemoglobin 12.6 g/dL (12.0-15.5); Mean Corpuscular HGB CONC 31.3 g/dL (32.0-36.0); Mean Corpuscular Hemoglobin 28.3 pg (27.0-33.0); Mean Corpuscular Volume 90.3 fl (81.6-98.3); Mean Platelet Volume 9.6 fl (7.4-10.4); Platelet Count 185 10x3/uL (150-450); RBC Distribution Width 15.1 % (11.5-14.5); Red Blood Cell (RBC) Count 4.45 10x6/uL (3.90-5.03); White Blood Cell (WBC) Count 5.9 10x3/uL (3.5-10.5)
[2021-01-14 13:04] LABS: INR-International Normal Ratio 1.1; Prothrombin Time 11.9 sec (9.5-12.1)
[2021-01-14 13:37] LABS: Albumin 3.8 g/dL (3.4-4.8); Anion Gap 14 mmol/L (10-20); BUN (Urea Nitrogen) 40 mg/dL (9.8-20.1); BUN/Creatinine Ratio 19.42; Calc. Creatinine Clearance 0 mL/min (70-130); Calcium 10.1 mg/dL (7.8-10.44); Carbon Dioxide 26 mmol/L (23-31); Chloride 99 mmol/L (98-107); Glucose 165 mg/dL (83-110); Phosphorus 2.9 mg/dL (2.3-4.7); Potassium 4.6 mmol/L (3.5-5.1); Sodium 134 mmol/L (136-145); Uric Acid 7.2 mg/dL (2.6-6.0)
[2021-01-14 17:11] LABS: Bilirubin Neg (Negative); Blood, Urine Negative (Negative); Clarity Slightly Cloudy (Clear); Glucose, Urine (Dipstick) 50 mg/dL (Negative); Ketone, Urine Negative (Negative); Leukocyte 25 (Negative); Nitrite Negative (Negative); Protein, Urine (Dipstick) 30 mg/dl (Neg-Trace); Urobilinogen Normal mg/dL (Less than 2)
[2021-01-14 17:26] LABS: Hemoglobin A1c 7.1 % (4.0-6.0)
[2021-01-14 17:53] LABS: Bacteria/HPF 1+ HPF (None Seen); RBC/HPF 0-3 HPF (0-3); Squamous Epithelial 0-3 HPF (0-3); WBC/HPF 0-3 HPF (0-3)
[2021-01-14 23:09] LABS: SARS-CoV-2 PCR by NAA Not Detected (NotDetected)
== END 2021-01-14 10:32 | disposition home or self-care (01) ==
LOC: LABBT 10:31
PROVIDERS: ATTEND Internal Medicine Cardiovascular Disease
DX: Z01.812 Encounter for preprocedural laboratory examination (principal); I49.5 Sick sinus syndrome; Z20.822 Contact with and (suspected) exposure to COVID-19
CPT/HCPCS: 80069; 81001; 82570; 83036; 84550; 85027; 85610; 85652; U0003; U0005

== ENCOUNTER 2021-01-17 05:55 | Day surgery (SDC) | payer MEDICARE ==
[2021-01-16 10:25] VITALS: BMI 22.1
[2021-01-17] MEDS ORDERED: Lidocaine 1% (PF) 30 ML VIAL ONE (06:25)
[2021-01-17] MEDS ORDERED: Gentamicin 80 MG/2 ML VIAL ONE (06:25)
[2021-01-17] MEDS ORDERED: CEFAZOLIN 1 GM VIAL ONE (06:25)
[2021-01-17] MEDS ORDERED: Vancomycin HCl 500 MG VIAL ONE (06:33)
[2021-01-17] MEDS ORDERED: Vancomycin 1 GM/200 ML BAG ONE (06:33)
[2021-01-17] MEDS ORDERED: Clindamycin/D5W 900 mg/50 ml Premix Bag ONE (06:53)
[2021-01-17] MEDS ORDERED: Midazolam HCl 2 mg/2 ml Vial ONE (07:20)
[2021-01-17] MEDS ORDERED: Fentanyl 100 MCG/2 ML VIAL ONE (07:20)
== END 2021-01-17 12:45 | disposition home or self-care (01) ==
LOC: SDC 05:55
PROVIDERS: ATTEND Internal Medicine Cardiovascular Disease
PROC: 0JPT0PZ Removal of Cardiac Rhythm Related Device from Trunk Subcutaneous Tissue and Fascia, Open Approach (ICD-10-PCS; principal; 2021-01-17)
PROC: 0JH606Z Insertion of Pacemaker, Dual Chamber into Chest Subcutaneous Tissue and Fascia, Open Approach (ICD-10-PCS; 2021-01-17)
DX: I49.5 Sick sinus syndrome (principal); I12.9 Hypertensive chronic kidney disease with stage 1 through stage 4 chronic kidney disease, or unspecified chronic kidney disease; E11.22 Type 2 diabetes mellitus with diabetic chronic kidney disease; N18.9 Chronic kidney disease, unspecified; I48.0 Paroxysmal atrial fibrillation; I25.10 Atherosclerotic heart disease of native coronary artery without angina pectoris; E78.5 Hyperlipidemia, unspecified; Z79.01 Long term (current) use of anticoagulants; Z79.4 Long term (current) use of insulin; Z79.82 Long term (current) use of aspirin; Z79.899 Other long term (current) drug therapy; Z88.0 Allergy status to penicillin; Z88.1 Allergy status to other antibiotic agents; Z88.2 Allergy status to sulfonamides; Z88.8 Allergy status to other drugs, medicaments and biological substances; Z95.0 Presence of cardiac pacemaker
CPT/HCPCS: 33228; C1785; 99152; 99153; J0690; J1580; J2001; J2250; J3010; J3370; J3490

== ENCOUNTER 2021-01-26 11:48 | Outpatient (CLI) | payer MEDICARE | END 2021-01-26 11:49 | disposition home or self-care (01) | LOC: SJX 11:48 | PROVIDERS: ATTEND Internal Medicine | DX: R07.9 Chest pain, unspecified (principal) | CPT/HCPCS: 71045 ==

== ENCOUNTER 2021-02-17 09:37 | Outpatient (CLI) | payer MEDICARE ==
[2021-02-17 13:03] LABS: Hemoglobin 12.2 g/dL (12.0-15.5); Mean Corpuscular HGB CONC 30.9 g/dL (32.0-36.0); Mean Corpuscular Hemoglobin 28.3 pg (27.0-33.0); Mean Corpuscular Volume 91.6 fl (81.6-98.3); Mean Platelet Volume 9.3 fl (7.4-10.4); Platelet Count 191 10x3/uL (150-450); RBC Distribution Width 15.4 % (11.5-14.5); Red Blood Cell (RBC) Count 4.31 10x6/uL (3.90-5.03); White Blood Cell (WBC) Count 4.7 10x3/uL (3.5-10.5)
[2021-02-17 13:11] LABS: Prothrombin Time 11.3 sec (9.5-12.1)
[2021-02-17 13:20] LABS: Anion Gap 14 mmol/L (10-20); BUN (Urea Nitrogen) 21 mg/dL (9.8-20.1); Calc. Creatinine Clearance 0 mL/min (70-130); Calcium 9.5 mg/dL (7.8-10.44); Carbon Dioxide 22 mmol/L (23-31); Chloride 102 mmol/L (98-107); Glucose 172 mg/dL (83-110); Potassium 5.2 mmol/L (3.5-5.1); Sodium 133 mmol/L (136-145)
[2021-02-17 23:41] LABS: SARS-CoV-2 PCR by NAA Not Detected (NotDetected)
== END 2021-02-17 09:38 | disposition home or self-care (01) ==
LOC: LABBT 09:37
PROVIDERS: ATTEND Internal Medicine Cardiovascular Disease
DX: Z01.812 Encounter for preprocedural laboratory examination (principal); I48.19 Other persistent atrial fibrillation; Z20.822 Contact with and (suspected) exposure to COVID-19
CPT/HCPCS: 80048; 85027; 85610; U0003; U0005

== ENCOUNTER 2021-02-20 05:44 | Day surgery (SDC) | payer MEDICARE ==
[2021-02-19 09:57] VITALS: BMI 21.2
== END 2021-02-20 07:43 | disposition home or self-care (01) ==
LOC: CCL 05:44
PROVIDERS: ATTEND Internal Medicine Cardiovascular Disease
DX: I48.0 Paroxysmal atrial fibrillation (principal); I49.5 Sick sinus syndrome; I25.10 Atherosclerotic heart disease of native coronary artery without angina pectoris; I12.9 Hypertensive chronic kidney disease with stage 1 through stage 4 chronic kidney disease, or unspecified chronic kidney disease; E11.22 Type 2 diabetes mellitus with diabetic chronic kidney disease; N18.9 Chronic kidney disease, unspecified; E78.5 Hyperlipidemia, unspecified; Z53.8 Procedure and treatment not carried out for other reasons; Z86.73 Personal history of transient ischemic attack (TIA), and cerebral infarction without residual deficits; Z79.01 Long term (current) use of anticoagulants; Z79.4 Long term (current) use of insulin; Z79.82 Long term (current) use of aspirin; Z79.899 Other long term (current) drug therapy; Z88.0 Allergy status to penicillin; Z88.1 Allergy status to other antibiotic agents; Z88.2 Allergy status to sulfonamides; Z88.5 Allergy status to narcotic agent; Z88.8 Allergy status to other drugs, medicaments and biological substances; Z95.0 Presence of cardiac pacemaker
CPT/HCPCS: 93005; 93010

== ENCOUNTER 2021-09-23 10:57 | Outpatient (CLI) | payer MEDICARE ==
[2021-09-23 12:29] LABS: Hemoglobin 12.8 g/dL (12.0-15.5); Mean Corpuscular Hemoglobin 29.2 pg (27.0-33.0); Mean Corpuscular Volume 91.1 fl (81.6-98.3); Mean Platelet Volume 9.4 fl (7.4-10.4); Platelet Count 184 10x3/uL (150-450); RBC Distribution Width 14.5 % (11.5-14.5); Red Blood Cell (RBC) Count 4.39 10x6/uL (3.90-5.03); White Blood Cell (WBC) Count 5.7 10x3/uL (3.5-10.5)
[2021-09-23 12:39] LABS: PTT 27.6 sec (22.0-33.0); Prothrombin Time 10.9 sec (9.5-12.1)
[2021-09-23 12:54] LABS: Anion Gap 16 mmol/L (10-20); BUN (Urea Nitrogen) 31 mg/dL (9.8-20.1); Calc. Creatinine Clearance 0 mL/min (70-130); Calcium 10.2 mg/dL (7.8-10.44); Carbon Dioxide 21 mmol/L (23-31); Chloride 106 mmol/L (98-107); Glucose 143 mg/dL (83-110); Potassium 4.8 mmol/L (3.5-5.1); Sodium 138 mmol/L (136-145)
[2021-09-23 18:45] LABS: SARS-CoV-2 PCR by NAA Not Detected (NotDetected)
== END 2021-09-23 10:58 | disposition home or self-care (01) ==
LOC: LABBT 10:57
PROVIDERS: ATTEND Internal Medicine Cardiovascular Disease
DX: Z01.812 Encounter for preprocedural laboratory examination (principal); I48.0 Paroxysmal atrial fibrillation; Z20.822 Contact with and (suspected) exposure to COVID-19
CPT/HCPCS: 80048; 85027; 85610; 85730; U0003; U0005

== ENCOUNTER → 2021-09-25 | Day surgery (SDC) | payer MEDICARE ==
[2021-09-24 11:06] VITALS: BMI 23.2
[~2021-09-25] MED LIST: Lidocaine 1% PF 5 ML VIAL ONE; PHENYLEPHRINE-NS 100 MCG/ML 10 ML SYRINGE ONE; PROPOFOL 200 MG/20 ML VIAL ONE
== END | disposition home or self-care (01) ==
LOC: SDC 07:09
PROVIDERS: ATTEND Internal Medicine Cardiovascular Disease
PROC: B246ZZ4 Ultrasonography of Right and Left Heart, Transesophageal (ICD-10-PCS; principal; 2021-09-25)
DX: I48.91 Unspecified atrial fibrillation (principal); I08.1 Rheumatic disorders of both mitral and tricuspid valves; Z79.01 Long term (current) use of anticoagulants; Z79.4 Long term (current) use of insulin; Z79.82 Long term (current) use of aspirin; Z79.890 Hormone replacement therapy; Z79.899 Other long term (current) drug therapy; Z88.0 Allergy status to penicillin; Z88.1 Allergy status to other antibiotic agents; Z88.2 Allergy status to sulfonamides; Z88.5 Allergy status to narcotic agent; Z88.8 Allergy status to other drugs, medicaments and biological substances; Z95.818 Presence of other cardiac implants and grafts
CPT/HCPCS: 93312; J2704

== ENCOUNTER 2021-10-12 17:36 | Inpatient (IN) | payer MEDICARE ==
[2021-10-12 18:13] LABS: #Basophils 0.1 thou/uL (0.0-0.2); #Eosinphils 0.2 thou/uL (0.0-0.7); #Lymphocytes 2.6 thou/uL (1.20-3.40); #Monocytes 0.7 thou/uL (0.11-0.59); #Neutrophils 4.1 thou/uL (1.40-6.50); %Basophils 0.7 % (0.0-1.0); %Eosinophils 2.4 % (0.0-10.0); %Lymphocytes 34.1 % (21.0-51.0); %Monocytes 8.6 % (0.0-10.0); %Neutrophils 54.2 % (42.0-75.0); Hemoglobin 12.6 g/dL (12.0-16.0); Mean Corpuscular HGB CONC 32.2 g/dL (32.0-36.0); Mean Corpuscular Volume 93.2 fL (78.0-98.0); Mean Platelet Volume 6.4 fL (7.4-10.4); Platelet Count 254 thou/uL (130-400); RBC Distribution Width 13.1 % (11.5-14.5); White Blood Cell (WBC) Count 7.6 thou/uL (4.8-10.8)
[2021-10-12 18:37] LABS: ALT (SGPT) 14 U/L (8-55); AST (SGOT) 23 U/L (5-34); Albumin 3.8 g/dL (3.4-4.8); Alkaline Phosphatase 96 U/L (40-110); Anion Gap 13 mmol/L (10-20); BUN (Urea Nitrogen) 21 mg/dL (9.8-20.1); Bilirubin, Total 1.1 mg/dL (0.2-1.2); CK (CPK) 67 U/L (29-168); Calc. Creatinine Clearance 0 mL/min (70-130); Calcium 10.1 mg/dL (7.8-10.44); Carbon Dioxide 22 mmol/L (23-31); Chloride 106 mmol/L (98-107); Globulin 4.1 g/dL (2.4-3.5); Glucose 61 mg/dL (83-110); Magnesium 1.9 mg/dL (1.6-2.6); Potassium 4.4 mmol/L (3.5-5.1); Protein, Total 7.9 g/dL (5.8-8.1); Sodium 137 mmol/L (136-145)
[2021-10-12 20:11] LABS: Bacteria/HPF None Seen HPF (None Seen); Bilirubin Negative (Negative); Blood, Urine Negative (Negative); Clarity Clear (Clear); Glucose, Urine (Dipstick) Normal (Negative); Ketone, Urine Negative (Negative); Leukocyte 75 Leu/uL (Negative); Nitrite Negative (Negative); Protein, Urine (Dipstick) Negative (Neg-Trace); RBC/HPF 0-3 HPF (0-3); Specific Gravity, Urine 1.004 (1.002-1.036); Squamous Epithelial None Seen HPF (0-3); Urobilinogen Normal mg/dL (Less than 2); pH, Urine 6.5 (5.0-9.0)
[2021-10-12] MEDS ORDERED: Nitroglycerin 0.4 MG TAB (25 Tab Bottle) SL PRN (20:32)
[2021-10-12] MEDS ORDERED: Dextrose 50% Abboject 50 ML SYRINGE SLOW IVP PRN (21:00)
[2021-10-12] MEDS ORDERED: Acetaminophen 325 MG TAB PO PRN (21:00)
[2021-10-12] MEDS ORDERED: Bisacodyl 5 MG TAB PO PRN (21:00)
[2021-10-12] MEDS ORDERED: Dextrose 5% in Water 1,000 ML IV PRN (21:00)
[2021-10-12] MEDS ORDERED: HumaLOG 300 UNITS/3 ML VIAL SC PRN ×2 (21:03→23:15)
[2021-10-12] MEDS ORDERED: Furosemide 20 MG/2 ML VIAL SLOW IVP SCH (21:30)
[2021-10-12 21:49] LABS: Troponin I 0.016 ng/mL (< 0.028)
[2021-10-12] MEDS: Metoprolol Tartrate 50 MG TAB PO SCH (23:51)
[2021-10-13 01:40] LABS: Troponin I 0.014 ng/mL (< 0.028)
[2021-10-13] MEDS: Furosemide 20 MG/2 ML VIAL SLOW IVP SCH ×3 (02:57→14:07)
[2021-10-13 05:01] LABS: #Eosinphils 0.1 thou/uL (0.0-0.7); #Lymphocytes 1.3 thou/uL (1.20-3.40); #Monocytes 0.5 thou/uL (0.11-0.59); #Neutrophils 2.5 thou/uL (1.40-6.50); %Basophils 0.4 % (0.0-1.0); %Lymphocytes 28.3 % (21.0-51.0); %Neutrophils 56.3 % (42.0-75.0); Hemoglobin 11.8 g/dL (12.0-16.0); Mean Corpuscular HGB CONC 32.3 g/dL (32.0-36.0); Mean Corpuscular Hemoglobin 30.2 pg (27.0-31.0); Mean Corpuscular Volume 93.7 fL (78.0-98.0); Mean Platelet Volume 6.6 fL (7.4-10.4); Platelet Count 177 thou/uL (130-400); RBC Distribution Width 13.1 % (11.5-14.5); Red Blood Cell (RBC) Count 3.92 mill/uL (4.20-5.40); White Blood Cell (WBC) Count 4.5 thou/uL (4.8-10.8)
[2021-10-13 05:30] LABS: ALT (SGPT) 11 U/L (8-55); AST (SGOT) 19 U/L (5-34); Albumin 3.5 g/dL (3.4-4.8); Alkaline Phosphatase 86 U/L (40-110); Anion Gap 13 mmol/L (10-20); BUN (Urea Nitrogen) 22 mg/dL (9.8-20.1); Bilirubin, Total 0.6 mg/dL (0.2-1.2); Calc. Creatinine Clearance 23 mL/min (70-130); Carbon Dioxide 23 mmol/L (23-31); Chloride 105 mmol/L (98-107); Globulin 3.7 g/dL (2.4-3.5); Glucose 197 mg/dL (83-110); Potassium 4.3 mmol/L (3.5-5.1); Protein, Total 7.2 g/dL (5.8-8.1); Sodium 137 mmol/L (136-145)
[2021-10-13] MEDS: Levothyroxine Sodium 50 MCG TAB PO SCH (05:30)
[2021-10-13 05:42] LABS: Troponin I 0.013 ng/mL (< 0.028)
[2021-10-13] MEDS: Aspirin 81 mg Enteric Coated Tablet PO SCH (09:28)
[2021-10-13] MEDS: Metoprolol Tartrate 50 MG TAB PO SCH ×2 (09:29→20:54)
[2021-10-13] MEDS: Enoxaparin Sodium 30 MG/0.3 ML SYRINGE SC SCH (09:29)
[2021-10-13] MEDS: Amiodarone 200 MG TAB PO SCH ×2 (09:29→20:54)
[2021-10-13] MEDS: Insulin Glargine 30 UNITS/0.3 ML VIAL SC SCH (10:24)
[2021-10-13 14:14] VITALS: BMI 22.0
[2021-10-14] MEDS ORDERED: Ondansetron PF 4 MG/2 ML Vial IVP SCH (02:45)
[2021-10-14] MEDS ORDERED: Promethazine HCl 12.5 MG in Sodium Chloride 0.9% 50 ML IVPB SCH (04:00)
[2021-10-14 04:55] LABS: #Lymphocytes 0.9 thou/uL (1.20-3.40); #Monocytes 0.4 thou/uL (0.11-0.59); #Neutrophils 4.8 thou/uL (1.40-6.50); %Basophils 0.1 % (0.0-1.0); %Eosinophils 0.7 % (0.0-10.0); %Monocytes 5.8 % (0.0-10.0); %Neutrophils 78.4 % (42.0-75.0); Hemoglobin 12.5 g/dL (12.0-16.0); Mean Corpuscular HGB CONC 32.2 g/dL (32.0-36.0); Mean Corpuscular Hemoglobin 30.6 pg (27.0-31.0); Mean Platelet Volume 6.9 fL (7.4-10.4); Platelet Count 194 thou/uL (130-400); RBC Distribution Width 13.1 % (11.5-14.5); Red Blood Cell (RBC) Count 4.08 mill/uL (4.20-5.40); White Blood Cell (WBC) Count 6.2 thou/uL (4.8-10.8)
[2021-10-14 05:21] LABS: Troponin I 0.012 ng/mL (< 0.028)
[2021-10-14] MEDS: Levothyroxine Sodium 50 MCG TAB PO SCH (05:46)
[2021-10-14 05:59] LABS: Magnesium 1.9 mg/dL (1.6-2.6)
[2021-10-14 06:48] LABS: ALT (SGPT) 12 U/L (8-55); AST (SGOT) 18 U/L (5-34); Albumin 3.7 g/dL (3.4-4.8); Alkaline Phosphatase 86 U/L (40-110); Anion Gap 18 mmol/L (10-20); BUN (Urea Nitrogen) 34 mg/dL (9.8-20.1); Calc. Creatinine Clearance 18 mL/min (70-130); Calcium 10.2 mg/dL (7.8-10.44); Carbon Dioxide 18 mmol/L (23-31); Chloride 105 mmol/L (98-107); Glucose 264 mg/dL (83-110); Potassium 4.8 mmol/L (3.5-5.1); Protein, Total 7.7 g/dL (5.8-8.1); Sodium 136 mmol/L (136-145)
[2021-10-14] MEDS: Furosemide 20 MG/2 ML VIAL SLOW IVP SCH ×3 (07:26→13:15)
[2021-10-14] MEDS ORDERED: Clopidogrel Bisulfate 75 MG TAB PO SCH (09:00)
[2021-10-14] MEDS ORDERED: PHENYLEPHRINE-NS 100 MCG/ML 10 ML SYRINGE ONE (11:04)
[2021-10-14] MEDS ORDERED: Phenylephrine 10 MG/ML VIAL ONE (11:08)
[2021-10-14] MEDS: Metoprolol Tartrate 50 MG TAB PO SCH (12:53)
[2021-10-14] MEDS: Amiodarone 200 MG TAB PO SCH (12:53)
[2021-10-14] MEDS: Insulin Glargine 30 UNITS/0.3 ML VIAL SC SCH (12:54)
[2021-10-14] MEDS: Aspirin 81 mg Enteric Coated Tablet PO SCH (12:54)
[2021-10-14] MEDS: Enoxaparin Sodium 30 MG/0.3 ML SYRINGE SC SCH (12:54)
[2021-10-14 17:00] VITALS: BP 125/57; TEMP 97.3
== END 2021-10-14 17:50 | disposition home or self-care (01) | DRG 308 ==
LOC: ERS 17:36 → 2NO 20:36 → OBSVTOIN 10-13 15:36
PROVIDERS: ADMIT Internal Medicine; ATTEND Internal Medicine
PROC: 5A2204Z Restoration of Cardiac Rhythm, Single (ICD-10-PCS; principal; 2021-10-14)
PROC: B24BZZ4 Ultrasonography of Heart with Aorta, Transesophageal (ICD-10-PCS; 2021-10-14)
DX: I48.0 Paroxysmal atrial fibrillation (principal); I50.33 Acute on chronic diastolic (congestive) heart failure; N17.9 Acute kidney failure, unspecified; I13.0 Hypertensive heart and chronic kidney disease with heart failure and stage 1 through stage 4 chronic kidney disease, or unspecified chronic kidney disease; Z20.822 Contact with and (suspected) exposure to COVID-19; E03.9 Hypothyroidism, unspecified; N18.30 Chronic kidney disease, stage 3 unspecified; E11.22 Type 2 diabetes mellitus with diabetic chronic kidney disease; Z88.1 Allergy status to other antibiotic agents; Z88.5 Allergy status to narcotic agent; Z95.818 Presence of other cardiac implants and grafts; Z88.0 Allergy status to penicillin; Z88.2 Allergy status to sulfonamides; Z88.8 Allergy status to other drugs, medicaments and biological substances; Z79.899 Other long term (current) drug therapy; Z79.890 Hormone replacement therapy; Z79.82 Long term (current) use of aspirin; Z79.4 Long term (current) use of insulin; Z79.01 Long term (current) use of anticoagulants; Z86.73 Personal history of transient ischemic attack (TIA), and cerebral infarction without residual deficits; Z90.710 Acquired absence of both cervix and uterus; Z98.890 Other specified postprocedural states; Z95.810 Presence of automatic (implantable) cardiac defibrillator; Z90.49 Acquired absence of other specified parts of digestive tract
CPT/HCPCS: 36415; 71045; 80053; 81003; 81015; 82550; 83735; 83880; 84436; 84439; 84443; 84484; 85025; 93005; 93010; 93312; 96372; 96374; 96375; 96376; G0378; J1650; J1815; J1940; J2370; J2405; J2550; U0003; U0005

== ENCOUNTER 2021-11-24 08:42 | Emergency (ER) | payer MEDICARE | END 2021-11-24 11:18 | disposition home or self-care (01) | LOC: ERS 08:42 | DX: I48.91 Unspecified atrial fibrillation (principal); E11.40 Type 2 diabetes mellitus with diabetic neuropathy, unspecified; I10 Essential (primary) hypertension; Z91.14 Patient's other noncompliance with medication regimen; Z79.82 Long term (current) use of aspirin; Z79.84 Long term (current) use of oral hypoglycemic drugs; Z79.01 Long term (current) use of anticoagulants; Z79.899 Other long term (current) drug therapy | CPT/HCPCS: 93005 ==

== ENCOUNTER 2021-11-27 12:16 | Emergency (ER) | payer MEDICARE ==
[2021-11-27 13:29] LABS: #Eosinphils 0.1 thou/uL (0.0-0.7); #Lymphocytes 1.5 thou/uL (1.20-3.40); #Monocytes 0.6 thou/uL (0.11-0.59); #Neutrophils 4.2 thou/uL (1.40-6.50); %Basophils 0.2 % (0.0-1.0); %Eosinophils 0.9 % (0.0-10.0); %Lymphocytes 23.4 % (21.0-51.0); %Monocytes 9.3 % (0.0-10.0); %Neutrophils 66.2 % (42.0-75.0); Hemoglobin 13.1 g/dL (12.0-16.0); Mean Corpuscular HGB CONC 32.2 g/dL (32.0-36.0); Mean Corpuscular Hemoglobin 29.4 pg (27.0-31.0); Mean Corpuscular Volume 91.3 fL (78.0-98.0); Mean Platelet Volume 7.1 fL (7.4-10.4); Platelet Count 202 thou/uL (130-400); RBC Distribution Width 14.2 % (11.5-14.5); Red Blood Cell (RBC) Count 4.44 mill/uL (4.20-5.40); White Blood Cell (WBC) Count 6.3 thou/uL (4.8-10.8)
[2021-11-27 13:35] LABS: INR-International Normal Ratio 1.1; Prothrombin Time 14.6 sec (12.0-14.7)
[2021-11-27 13:50] LABS: ALT (SGPT) 15 U/L (8-55); AST (SGOT) 23 U/L (5-34); Albumin 3.7 g/dL (3.4-4.8); Alkaline Phosphatase 99 U/L (40-110); Anion Gap 15 mmol/L (10-20); BUN (Urea Nitrogen) 36 mg/dL (9.8-20.1); CK (CPK) 32 U/L (29-168); Calc. Creatinine Clearance 0 mL/min (70-130); Calcium 9.9 mg/dL (7.8-10.44); Carbon Dioxide 21 mmol/L (23-31); Chloride 100 mmol/L (98-107); Estimated GFR 25; Glucose 141 mg/dL (83-110); Lipase 20 U/L (8-78); Potassium 5.2 mmol/L (3.5-5.1); Protein, Total 7.7 g/dL (5.8-8.1); Sodium 131 mmol/L (136-145)
[2021-11-27 14:15] LABS: SARS-CoV-2 NAA Rapid Test Not Detected (NotDetected)
[2021-11-27 14:41] LABS: Bacteria/HPF None Seen HPF (None Seen); Bilirubin Negative (Negative); Blood, Urine Negative (Negative); Clarity Clear (Clear); Glucose, Urine (Dipstick) Normal (Negative); Ketone, Urine Negative (Negative); Leukocyte Negative Leu/uL (Negative); Nitrite Negative (Negative); Protein, Urine (Dipstick) 30 mg/dL (Neg-Trace); RBC/HPF 0-3 HPF (0-3); Specific Gravity, Urine 1.019 (1.002-1.036); Squamous Epithelial 0-3 HPF (0-3); Urobilinogen Normal mg/dL (Less than 2); WBC/HPF 0-3 HPF (0-3); pH, Urine 5.5 (5.0-9.0)
== END 2021-11-27 15:26 | disposition home or self-care (01) ==
LOC: ERS 12:16
DX: S00.93XA Contusion of unspecified part of head, initial encounter (principal); E87.5 Hyperkalemia; E87.1 Hypo-osmolality and hyponatremia; I48.91 Unspecified atrial fibrillation; I45.2 Bifascicular block; I10 Essential (primary) hypertension; E11.40 Type 2 diabetes mellitus with diabetic neuropathy, unspecified; K72.90 Hepatic failure, unspecified without coma; W18.00XA Striking against unspecified object with subsequent fall, initial encounter; Y93.01 Activity, walking, marching and hiking; Y92.009 Unspecified place in unspecified non-institutional (private) residence as the place of occurrence of the external cause; Z20.822 Contact with and (suspected) exposure to COVID-19; Z79.4 Long term (current) use of insulin; Z86.73 Personal history of transient ischemic attack (TIA), and cerebral infarction without residual deficits; Z95.5 Presence of coronary angioplasty implant and graft; I42.9 Cardiomyopathy, unspecified; Z79.82 Long term (current) use of aspirin; Z79.899 Other long term (current) drug therapy
CPT/HCPCS: 0240U; 51701; 70450; 71045; 72125; 80053; 82550; 83605; 83690; 84484; 85025; 85610; 85730; 93005; 99285; 36415; 81003; 81015

== ENCOUNTER 2021-12-07 12:50 | Inpatient (IN) | payer MEDICARE ==
[2021-12-07 13:18] LABS: #Lymphocytes 1.4 thou/uL (1.20-3.40); #Monocytes 0.5 thou/uL (0.11-0.59); #Neutrophils 3.9 thou/uL (1.40-6.50); %Basophils 0.6 % (0.0-1.0); %Eosinophils 0.7 % (0.0-10.0); %Lymphocytes 23.8 % (21.0-51.0); %Monocytes 8.9 % (0.0-10.0); %Neutrophils 66.1 % (42.0-75.0); Hemoglobin 13.7 g/dL (12.0-16.0); Mean Corpuscular HGB CONC 32.5 g/dL (32.0-36.0); Mean Corpuscular Hemoglobin 29.4 pg (27.0-31.0); Mean Corpuscular Volume 90.4 fL (78.0-98.0); Mean Platelet Volume 6.7 fL (7.4-10.4); Platelet Count 228 thou/uL (130-400); RBC Distribution Width 14.3 % (11.5-14.5); Red Blood Cell (RBC) Count 4.67 mill/uL (4.20-5.40); White Blood Cell (WBC) Count 5.8 thou/uL (4.8-10.8)
[2021-12-07] MEDS ORDERED: Amiodarone 200 MG TAB PO SCH (13:30)
[2021-12-07] MEDS ORDERED: Clopidogrel Bisulfate 75 MG TAB ONE (13:38)
[2021-12-07] MEDS ORDERED: Ondansetron PF 4 MG/2 ML Vial ONE (13:38)
[2021-12-07 13:41] LABS: ALT (SGPT) 10 U/L (8-55); AST (SGOT) 20 U/L (5-34); Albumin 3.9 g/dL (3.4-4.8); Alkaline Phosphatase 91 U/L (40-110); Anion Gap 17 mmol/L (10-20); BUN (Urea Nitrogen) 36 mg/dL (9.8-20.1); Bilirubin, Total 1.3 mg/dL (0.2-1.2); Calc. Creatinine Clearance 0 mL/min (70-130); Carbon Dioxide 22 mmol/L (23-31); Chloride 103 mmol/L (98-107); Estimated GFR 28; Globulin 4.2 g/dL (2.4-3.5); Glucose 162 mg/dL (83-110); Lipase 32 U/L (8-78); Protein, Total 8.1 g/dL (5.8-8.1); Sodium 137 mmol/L (136-145)
[2021-12-07] MEDS ORDERED: Furosemide 20 MG/2 ML VIAL ONE (15:30)
[2021-12-07 16:57] LABS: Troponin I Less than 0.010 ng/mL (< 0.028)
[2021-12-07] MEDS ORDERED: Acetaminophen 325 MG TAB PO PRN (18:14)
[2021-12-07] MEDS ORDERED: Dextrose 50% Abboject 50 ML SYRINGE SLOW IVP PRN (18:14)
[2021-12-07] MEDS ORDERED: Dextrose 5% in Water 1,000 ML IV PRN (18:14)
[2021-12-07 19:54] LABS: Troponin I 0.012 ng/mL (< 0.028)
[2021-12-07] MEDS ORDERED: HumaLOG 300 UNITS/3 ML VIAL SC PRN (21:00)
[2021-12-08 04:42] LABS: #Eosinphils 0.1 thou/uL (0.0-0.7); #Lymphocytes 1.2 thou/uL (1.20-3.40); #Monocytes 0.5 thou/uL (0.11-0.59); #Neutrophils 2.7 thou/uL (1.40-6.50); %Basophils 0.6 % (0.0-1.0); %Eosinophils 1.9 % (0.0-10.0); %Lymphocytes 26.4 % (21.0-51.0); %Monocytes 10.7 % (0.0-10.0); %Neutrophils 60.4 % (42.0-75.0); Hemoglobin 11.4 g/dL (12.0-16.0); Mean Corpuscular HGB CONC 31.2 g/dL (32.0-36.0); Mean Corpuscular Hemoglobin 27.9 pg (27.0-31.0); Mean Corpuscular Volume 89.4 fL (78.0-98.0); Mean Platelet Volume 6.8 fL (7.4-10.4); Platelet Count 172 thou/uL (130-400); RBC Distribution Width 14.4 % (11.5-14.5); Red Blood Cell (RBC) Count 4.08 mill/uL (4.20-5.40); White Blood Cell (WBC) Count 4.5 thou/uL (4.8-10.8)
[2021-12-08 05:07] LABS: Anion Gap 14 mmol/L (10-20); BUN (Urea Nitrogen) 33 mg/dL (9.8-20.1); Calc. Creatinine Clearance 24 mL/min (70-130); Calcium 9.6 mg/dL (7.8-10.44); Carbon Dioxide 23 mmol/L (23-31); Chloride 104 mmol/L (98-107); Estimated GFR 30; Glucose 185 mg/dL (83-110); Sodium 137 mmol/L (136-145)
[2021-12-08] MEDS: HumaLOG 300 UNITS/3 ML VIAL SC PRN (05:13)
[2021-12-08] MEDS ORDERED: Enoxaparin Sodium 30 MG/0.3 ML SYRINGE SC SCH ×2 (09:00→10:30)
[2021-12-08] MEDS ORDERED: Levothyroxine Sodium 25 MCG TAB PO SCH (09:00)
[2021-12-08] MEDS: Furosemide 20 MG/2 ML VIAL SLOW IVP SCH (09:05)
[2021-12-08] MEDS: Aspirin 81 mg Enteric Coated Tablet PO SCH (10:13)
[2021-12-08] MEDS: Metoprolol Tartrate 50 MG TAB PO SCH ×2 (10:13→21:36)
[2021-12-08] MEDS: Clopidogrel Bisulfate 75 MG TAB PO SCH (10:16)
[2021-12-08] MEDS: Amiodarone 200 MG TAB PO SCH ×2 (10:16→21:36)
[2021-12-08] MEDS ORDERED: HumaLOG 300 UNITS/3 ML VIAL SC SCH (17:00)
[2021-12-08] MEDS: HumaLOG 300 UNITS/3 ML VIAL SC SCH (17:23)
[2021-12-08] MEDS ORDERED: Non-Formulary Item 1 EACH (Insulin Degludec [Tresiba Flextouch U-200] 200 UNIT/ML Insuln. SQ SCH (21:00)
[2021-12-08] MEDS: Insulin Glargine 30 UNITS/0.3 ML VIAL SC SCH (21:36)
[2021-12-09] MEDS: Levothyroxine Sodium 50 MCG TAB PO SCH (06:08)
[2021-12-09] MEDS: HumaLOG 300 UNITS/3 ML VIAL SC PRN (06:13)
[2021-12-09] MEDS: Aspirin 81 mg Enteric Coated Tablet PO SCH (08:14)
[2021-12-09] MEDS: HumaLOG 300 UNITS/3 ML VIAL SC SCH ×2 (08:14→17:28)
[2021-12-09] MEDS: Clopidogrel Bisulfate 75 MG TAB PO SCH (08:14)
[2021-12-09] MEDS: Furosemide 20 MG/2 ML VIAL SLOW IVP SCH (08:15)
[2021-12-09] MEDS: Amiodarone 200 MG TAB PO SCH (08:15)
[2021-12-09] MEDS: Metoprolol Tartrate 50 MG TAB PO SCH ×2 (08:16→21:19)
[2021-12-09] MEDS ORDERED: Heparin 10,000 UNITS/ 10 ML VIAL ONE (13:00)
[2021-12-09] MEDS ORDERED: Propofol 500 MG/50 ML VIAL ONE (13:06)
[2021-12-09] MEDS ORDERED: fentaNYL Citrate/PF 100 MCG/2 ML SYRINGE ONE (13:06)
[2021-12-09] MEDS ORDERED: Lidocaine 1% PF 5 ML VIAL ONE (13:22)
[2021-12-09] MEDS ORDERED: PROPOFOL 200 MG/20 ML VIAL ONE (13:22)
[2021-12-09] MEDS ORDERED: Clindamycin/D5W 900 mg/50 ml Premix Bag ONE (13:45)
[2021-12-09] MEDS ORDERED: Electrolyte Replacement Protocol 1 EACH FS SCH (20:30)
[2021-12-09] MEDS: Insulin Glargine 30 UNITS/0.3 ML VIAL SC SCH (21:19)
[2021-12-10 05:02] LABS: Anion Gap 16 mmol/L (10-20); BUN (Urea Nitrogen) 30 mg/dL (9.8-20.1); Calc. Creatinine Clearance 25 mL/min (70-130); Calcium 9.3 mg/dL (7.8-10.44); Carbon Dioxide 18 mmol/L (23-31); Chloride 108 mmol/L (98-107); Estimated GFR 32; Glucose 202 mg/dL (83-110); Magnesium 1.7 mg/dL (1.6-2.6); Potassium 4.6 mmol/L (3.5-5.1); Sodium 137 mmol/L (136-145)
[2021-12-10] MEDS: HumaLOG 300 UNITS/3 ML VIAL SC PRN (05:19)
[2021-12-10] MEDS: Levothyroxine Sodium 50 MCG TAB PO SCH (05:22)
[2021-12-10] MEDS ORDERED: Magnesium 2 GM/50 ML(in water) 2 GM in Premix Bag 1 BAG IVPB SCH (08:00)
[2021-12-10] MEDS: Metoprolol Tartrate 50 MG TAB PO SCH ×2 (09:41→20:49)
[2021-12-10] MEDS: Clopidogrel Bisulfate 75 MG TAB PO SCH (09:41)
[2021-12-10] MEDS: Aspirin 81 mg Enteric Coated Tablet PO SCH (09:41)
[2021-12-10] MEDS: HumaLOG 300 UNITS/3 ML VIAL SC SCH ×2 (09:42→18:17)
[2021-12-10] MEDS ORDERED: Iopamidol 370 76% 100 ML VIAL ONE (10:01)
[2021-12-10] MEDS ORDERED: Mag-Al 1200 mg/1200 mg/30 ML UDCUP PO SCH (11:15)
[2021-12-10] MEDS ORDERED: Furosemide 20 MG/2 ML VIAL SLOW IVP SCH ×2 (12:30→18:00)
[2021-12-10 17:49] LABS: CKMB 1.7 ng/mL (0-6.6)
[2021-12-10] MEDS: Magnesium Oxide 400 MG TAB PO SCH (20:49)
[2021-12-10] MEDS: Insulin Glargine 30 UNITS/0.3 ML VIAL SC SCH (20:50)
[2021-12-11] MEDS: Levothyroxine Sodium 50 MCG TAB PO SCH (05:43)
[2021-12-11] MEDS: Furosemide 20 MG/2 ML VIAL SLOW IVP SCH ×2 (05:43→14:05)
[2021-12-11] MEDS ORDERED: Furosemide 20 MG/2 ML VIAL SLOW IVP SCH (06:00)
[2021-12-11 06:18] LABS: #Eosinphils 0.1 thou/uL (0.0-0.7); #Lymphocytes 1.3 thou/uL (1.20-3.40); #Monocytes 0.5 thou/uL (0.11-0.59); #Neutrophils 3.4 thou/uL (1.40-6.50); %Basophils 0.8 % (0.0-1.0); %Eosinophils 2.5 % (0.0-10.0); %Lymphocytes 24.4 % (21.0-51.0); %Monocytes 9.2 % (0.0-10.0); %Neutrophils 63.2 % (42.0-75.0); Hemoglobin 12.5 g/dL (12.0-16.0); Mean Corpuscular Hemoglobin 28.5 pg (27.0-31.0); Mean Corpuscular Volume 91.7 fL (78.0-98.0); Mean Platelet Volume 6.9 fL (7.4-10.4); Platelet Count 181 thou/uL (130-400); RBC Distribution Width 14.7 % (11.5-14.5); Red Blood Cell (RBC) Count 4.38 mill/uL (4.20-5.40); White Blood Cell (WBC) Count 5.4 thou/uL (4.8-10.8)
[2021-12-11 06:36] LABS: Anion Gap 12 mmol/L (10-20); BUN (Urea Nitrogen) 27 mg/dL (9.8-20.1); Calc. Creatinine Clearance 28 mL/min (70-130); Calcium 9.5 mg/dL (7.8-10.44); Carbon Dioxide 28 mmol/L (23-31); Chloride 105 mmol/L (98-107); Estimated GFR 38; Glucose 133 mg/dL (83-110); Potassium 3.8 mmol/L (3.5-5.1); Sodium 141 mmol/L (136-145)
[2021-12-11] MEDS: Magnesium Oxide 400 MG TAB PO SCH ×2 (08:48→20:12)
[2021-12-11] MEDS: HumaLOG 300 UNITS/3 ML VIAL SC SCH (08:48)
[2021-12-11] MEDS: Metoprolol Tartrate 50 MG TAB PO SCH ×2 (08:49→20:12)
[2021-12-11] MEDS: Aspirin 81 mg Enteric Coated Tablet PO SCH (08:49)
[2021-12-11] MEDS: Clopidogrel Bisulfate 75 MG TAB PO SCH (08:49)
[2021-12-11 10:05] VITALS: BMI 22.0
[2021-12-11] MEDS: HumaLOG 300 UNITS/3 ML VIAL SC PRN ×2 (13:58→19:02)
[2021-12-11] MEDS: Insulin Glargine 30 UNITS/0.3 ML VIAL SC SCH (20:12)
[2021-12-12 04:59] LABS: Anion Gap 14 mmol/L (10-20); BUN (Urea Nitrogen) 28 mg/dL (9.8-20.1); Calc. Creatinine Clearance 23 mL/min (70-130); Calcium 9.8 mg/dL (7.8-10.44); Carbon Dioxide 30 mmol/L (23-31); Chloride 100 mmol/L (98-107); Estimated GFR 31; Glucose 174 mg/dL (83-110); Potassium 3.6 mmol/L (3.5-5.1); Sodium 140 mmol/L (136-145)
[2021-12-12] MEDS: HumaLOG 300 UNITS/3 ML VIAL SC PRN (05:07)
[2021-12-12] MEDS: Levothyroxine Sodium 50 MCG TAB PO SCH (05:07)
[2021-12-12] MEDS ORDERED: Furosemide 40 MG TAB PO SCH (07:30)
[2021-12-12] MEDS: Metoprolol Tartrate 50 MG TAB PO SCH (08:36)
[2021-12-12] MEDS: Clopidogrel Bisulfate 75 MG TAB PO SCH (08:36)
[2021-12-12] MEDS: Aspirin 81 mg Enteric Coated Tablet PO SCH (08:36)
[2021-12-12] MEDS: Magnesium Oxide 400 MG TAB PO SCH (08:36)
[2021-12-12 15:46] VITALS: BP 114/59; TEMP 98.2
== END 2021-12-12 16:49 | disposition home health service (06) | DRG 273 ==
LOC: ERS 12:50 → 2NO 14:49 → OBSVTOIN 12-08 16:09
PROVIDERS: ADMIT Internal Medicine; ATTEND Internal Medicine
PROC: 02583ZZ Destruction of Conduction Mechanism, Percutaneous Approach (ICD-10-PCS; principal; 2021-12-09)
DX: I13.0 Hypertensive heart and chronic kidney disease with heart failure and stage 1 through stage 4 chronic kidney disease, or unspecified chronic kidney disease (principal); I21.A1 Myocardial infarction type 2; I50.33 Acute on chronic diastolic (congestive) heart failure; I48.19 Other persistent atrial fibrillation; N18.4 Chronic kidney disease, stage 4 (severe); E78.5 Hyperlipidemia, unspecified; E03.9 Hypothyroidism, unspecified; Z96.1 Presence of intraocular lens; I48.0 Paroxysmal atrial fibrillation; E83.42 Hypomagnesemia; K76.89 Other specified diseases of liver; I49.5 Sick sinus syndrome; Z20.822 Contact with and (suspected) exposure to COVID-19; Z98.890 Other specified postprocedural states; Z79.02 Long term (current) use of antithrombotics/antiplatelets; Z79.899 Other long term (current) drug therapy; Z88.0 Allergy status to penicillin; Z88.8 Allergy status to other drugs, medicaments and biological substances; Z88.2 Allergy status to sulfonamides; Z95.0 Presence of cardiac pacemaker; Z90.710 Acquired absence of both cervix and uterus; Z90.89 Acquired absence of other organs; Z98.42 Cataract extraction status, left eye; Z98.41 Cataract extraction status, right eye; Z88.1 Allergy status to other antibiotic agents; Z90.49 Acquired absence of other specified parts of digestive tract; Z83.3 Family history of diabetes mellitus; Z82.49 Family history of ischemic heart disease and other diseases of the circulatory system; Z79.890 Hormone replacement therapy; Z79.4 Long term (current) use of insulin; Z79.82 Long term (current) use of aspirin; Z79.01 Long term (current) use of anticoagulants; Z86.73 Personal history of transient ischemic attack (TIA), and cerebral infarction without residual deficits
CPT/HCPCS: 36415; 36416; 71045; 71260; 80048; 80053; 82553; 83690; 83735; 83880; 84439; 84443; 84484; 85025; 93005; 93010; 93306; 93613; 93650; 93798; 94760; 96372; 96374; 96375; 96376; C1760; C1769; C1894; C2630; G0378; J1644; J1650; J1815; J1940; J2405; J2704; J3475; J3490; Q9967; U0003; U0005

== ENCOUNTER 2022-02-03 14:17 | Emergency (ER) | payer MEDICARE ==
[2022-02-03 15:01] LABS: #Eosinphils 0.1 thou/uL (0.0-0.7); #Lymphocytes 1.2 thou/uL (1.20-3.40); #Monocytes 0.4 thou/uL (0.11-0.59); #Neutrophils 4.2 thou/uL (1.40-6.50); %Basophils 0.2 % (0.0-1.0); %Monocytes 7.1 % (0.0-10.0); %Neutrophils 71.7 % (42.0-75.0); Hemoglobin 13.6 g/dL (12.0-16.0); Mean Corpuscular HGB CONC 31.1 g/dL (32.0-36.0); Mean Corpuscular Hemoglobin 29.3 pg (27.0-31.0); Mean Corpuscular Volume 94.2 fL (78.0-98.0); Mean Platelet Volume 7.2 fL (7.4-10.4); Platelet Count 187 thou/uL (130-400); RBC Distribution Width 14.8 % (11.5-14.5); Red Blood Cell (RBC) Count 4.64 mill/uL (4.20-5.40); White Blood Cell (WBC) Count 5.8 thou/uL (4.8-10.8)
[2022-02-03 15:13] LABS: ALT (SGPT) 11 U/L (8-55); AST (SGOT) 28 U/L (5-34); Albumin 3.6 g/dL (3.4-4.8); Alkaline Phosphatase 107 U/L (40-110); Anion Gap 15 mmol/L (10-20); BUN (Urea Nitrogen) 20 mg/dL (9.8-20.1); Bilirubin, Total 1.2 mg/dL (0.2-1.2); Calc. Creatinine Clearance 0 mL/min (70-130); Calcium 9.8 mg/dL (7.8-10.44); Carbon Dioxide 21 mmol/L (23-31); Chloride 102 mmol/L (98-107); Estimated GFR 34; Globulin 4.1 g/dL (2.4-3.5); Glucose 230 mg/dL (83-110); Potassium 5.4 mmol/L (3.5-5.1); Protein, Total 7.7 g/dL (5.8-8.1); Sodium 133 mmol/L (136-145)
== END 2022-02-03 18:49 | disposition home or self-care (01) ==
LOC: ERS 14:17
DX: R07.89 Other chest pain (principal); E11.40 Type 2 diabetes mellitus with diabetic neuropathy, unspecified; I10 Essential (primary) hypertension; I48.91 Unspecified atrial fibrillation; Z79.4 Long term (current) use of insulin; Z79.899 Other long term (current) drug therapy
CPT/HCPCS: 36415; 71045; 80053; 84484; 85025; 93005

== ENCOUNTER 2022-04-15 01:41 | Observation (INO) | payer MEDICARE ==
[2022-04-15] MEDS ORDERED: Nitroglycerin 2% Ointment 1 INCH/1 GM Packet ONE (01:59)
[2022-04-15] MEDS ORDERED: Ondansetron PF 4 MG/2 ML Vial ONE (01:59)
[2022-04-15 02:24] LABS: #Eosinphils 0.1 thou/uL (0.0-0.7); #Lymphocytes 1.6 thou/uL (1.20-3.40); #Monocytes 0.8 thou/uL (0.11-0.59); #Neutrophils 7.2 thou/uL (1.40-6.50); %Basophils 0.1 % (0.0-1.0); %Eosinophils 0.6 % (0.0-10.0); %Lymphocytes 16.3 % (21.0-51.0); %Monocytes 8.2 % (0.0-10.0); %Neutrophils 74.9 % (42.0-75.0); Hemoglobin 15.9 g/dL (12.0-16.0); Mean Corpuscular HGB CONC 32.8 g/dL (32.0-36.0); Mean Corpuscular Hemoglobin 31.7 pg (27.0-31.0); Mean Corpuscular Volume 96.6 fl (78.0-98.0); Mean Platelet Volume 7.1 fL (7.4-10.4); Platelet Count 174 10x3/uL (130-400); Red Blood Cell (RBC) Count 5.03 mill/uL (4.20-5.40); White Blood Cell (WBC) Count 9.6 10x3/uL (4.8-10.8)
[2022-04-15 02:46] LABS: ALT (SGPT) 36 U/L (8-55); AST (SGOT) 36 U/L (5-34); Albumin 3.1 g/dL (3.4-4.8); Alkaline Phosphatase 156 U/L (40-110); Anion Gap 13 mmol/L (10-20); BUN (Urea Nitrogen) 46 mg/dL (9.8-20.1); Bilirubin, Total 0.8 mg/dL (0.2-1.2); CK (CPK) 32 U/L (29-168); Calc. Creatinine Clearance 0 mL/min (70-130); Calcium 9.8 mg/dL (7.8-10.44); Carbon Dioxide 23 mmol/L (23-31); Chloride 101 mmol/L (98-107); Estimated GFR 34; Globulin 3.4 g/dL (2.4-3.5); Glucose 280 mg/dL (83-110); Lipase 63 U/L (8-78); Potassium 4.7 mmol/L (3.5-5.1); Protein, Total 6.5 g/dL (5.8-8.1); Sodium 132 mmol/L (136-145)
[2022-04-15] MEDS ORDERED: Metoprolol Tartrate 5 MG/5 ML VIAL IVP PRN (03:51)
[2022-04-15] MEDS ORDERED: HumaLOG 300 UNITS/3 ML VIAL SC PRN (04:02)
[2022-04-15] MEDS ORDERED: Dextrose 5% in Water 1,000 ML IV PRN (04:02)
[2022-04-15] MEDS ORDERED: Dextrose 50% Abboject 50 ML SYRINGE SLOW IVP PRN (04:02)
[2022-04-15 05:11] LABS: SARS-CoV-2 NAA Rapid Test DETECTED (NotDetected)
[2022-04-15 06:38] VITALS: BMI 18.9
[2022-04-15 06:44] LABS: Troponin I 0.018 ng/mL (< 0.028)
[2022-04-15] MEDS: Levothyroxine Sodium 50 MCG TAB PO SCH (08:59)
[2022-04-15 09:14] LABS: Troponin I 0.024 ng/mL (< 0.028)
[2022-04-15] MEDS: Aspirin 81 mg Enteric Coated Tablet PO SCH (09:37)
[2022-04-15] MEDS: Ondansetron PF 4 MG/2 ML Vial IVP PRN ×2 (09:37→10:34)
[2022-04-15] MEDS: Heparin 5,000 UNITS/ML VIAL SC SCH ×3 (10:10→21:13)
[2022-04-16 04:38] LABS: #Lymphocytes 1.3 thou/uL (1.20-3.40); #Monocytes 0.6 thou/uL (0.11-0.59); %Basophils 0.1 % (0.0-1.0); %Eosinophils 0.1 % (0.0-10.0); %Lymphocytes 9.3 % (21.0-51.0); %Monocytes 4.1 % (0.0-10.0); %Neutrophils 86.3 % (42.0-75.0); Hemoglobin 14.9 g/dL (12.0-16.0); Mean Corpuscular Hemoglobin 32.3 pg (27.0-31.0); Mean Platelet Volume 7.1 fL (7.4-10.4); Platelet Count 146 10x3/uL (130-400); RBC Distribution Width 14.9 % (11.5-14.5); Red Blood Cell (RBC) Count 4.63 mill/uL (4.20-5.40); White Blood Cell (WBC) Count 13.9 10x3/uL (4.8-10.8)
[2022-04-16 05:00] LABS: Anion Gap 13 mmol/L (10-20); BUN (Urea Nitrogen) 48 mg/dL (9.8-20.1); Calc. Creatinine Clearance 26 mL/min (70-130); Calcium 9.7 mg/dL (7.8-10.44); Carbon Dioxide 22 mmol/L (23-31); Chloride 101 mmol/L (98-107); Estimated GFR 42; Glucose 394 mg/dL (83-110); Potassium 4.9 mmol/L (3.5-5.1); Sodium 131 mmol/L (136-145)
[2022-04-16] MEDS: Levothyroxine Sodium 50 MCG TAB PO SCH (05:54)
[2022-04-16] MEDS ORDERED: Insulin Glargine 30 UNITS/0.3 ML VIAL SC SCH (09:00)
[2022-04-16] MEDS: Heparin 5,000 UNITS/ML VIAL SC SCH ×2 (09:39→16:03)
[2022-04-16] MEDS: Aspirin 81 mg Enteric Coated Tablet PO SCH (09:39)
[2022-04-16 15:45] VITALS: BP 127/61; TEMP 97.4
== END 2022-04-16 18:45 ==
LOC: ERS 01:41 → ERHOLD 03:23 → 2NO 06:23
PROVIDERS: ADMIT Family Medicine; ATTEND Family Medicine
DX: R07.89 Other chest pain (principal); R11.2 Nausea with vomiting, unspecified; R10.13 Epigastric pain; U07.1 COVID-19; M51.26 Other intervertebral disc displacement, lumbar region; I13.0 Hypertensive heart and chronic kidney disease with heart failure and stage 1 through stage 4 chronic kidney disease, or unspecified chronic kidney disease; E11.22 Type 2 diabetes mellitus with diabetic chronic kidney disease; N18.4 Chronic kidney disease, stage 4 (severe); I50.32 Chronic diastolic (congestive) heart failure; E03.9 Hypothyroidism, unspecified; K21.9 Gastro-esophageal reflux disease without esophagitis; E11.40 Type 2 diabetes mellitus with diabetic neuropathy, unspecified; K83.09 Other cholangitis; I08.8 Other rheumatic multiple valve diseases; Z86.73 Personal history of transient ischemic attack (TIA), and cerebral infarction without residual deficits; Z79.4 Long term (current) use of insulin; Z79.82 Long term (current) use of aspirin; Z79.890 Hormone replacement therapy; Z79.899 Other long term (current) drug therapy; Z88.0 Allergy status to penicillin; Z88.1 Allergy status to other antibiotic agents; Z88.2 Allergy status to sulfonamides; Z88.5 Allergy status to narcotic agent; Z88.8 Allergy status to other drugs, medicaments and biological substances; Z95.0 Presence of cardiac pacemaker
CPT/HCPCS: 71045; 80048; 80053; 82550; 82962; 83690; 84484 ×2; 85025 ×2; 93005; 93306; 96374; 99285; U0002; 36415; 36416; 96376; G0378; J2405

== ENCOUNTER 2022-05-12 14:12 | Inpatient (IN) | payer MEDICARE ==
[2022-05-12 15:42] LABS: #Monocytes 1.3 thou/uL (0.11-0.59); #Neutrophils 15.3 thou/uL (1.40-6.50); %Basophils 0.1 % (0.0-1.0); %Eosinophils 0.1 % (0.0-10.0); %Lymphocytes 5.8 % (21.0-51.0); %Monocytes 7.2 % (0.0-10.0); %Neutrophils 86.9 % (42.0-75.0); Hemoglobin 14.2 g/dL (12.0-16.0); Mean Corpuscular HGB CONC 33.3 g/dL (32.0-36.0); Mean Corpuscular Hemoglobin 31.7 pg (27.0-31.0); Mean Corpuscular Volume 95.3 fl (78.0-98.0); Mean Platelet Volume 7.1 fL (7.4-10.4); Platelet Count 260 10x3/uL (130-400); RBC Distribution Width 15.5 % (11.5-14.5); Red Blood Cell (RBC) Count 4.49 mill/uL (4.20-5.40); White Blood Cell (WBC) Count 17.6 10x3/uL (4.8-10.8)
[2022-05-12] MEDS ORDERED: cefTRIAXone\\ROCEPHIN 1 GM VIAL ONE (16:14)
[2022-05-12] MEDS ORDERED: Vancomycin 1 GM/200 ML (FROZEN) BAG ONE (16:14)
[2022-05-12 16:15] LABS: ALT (SGPT) 21 U/L (8-55); AST (SGOT) 21 U/L (5-34); Albumin 3.4 g/dL (3.4-4.8); Alkaline Phosphatase 124 U/L (40-110); Anion Gap 17 mmol/L (10-20); BUN (Urea Nitrogen) 72 mg/dL (9.8-20.1); Bilirubin, Total 2.2 mg/dL (0.2-1.2); Calc. Creatinine Clearance 0 mL/min (70-130); Calcium 10.3 mg/dL (7.8-10.44); Carbon Dioxide 21 mmol/L (23-31); Chloride 98 mmol/L (98-107); Estimated GFR 25; Globulin 4.1 g/dL (2.4-3.5); Glucose 258 mg/dL (83-110); Potassium 5.1 mmol/L (3.5-5.1); Protein, Total 7.5 g/dL (5.8-8.1); Sodium 131 mmol/L (136-145)
[2022-05-12 16:35] LABS: CKMB 1.7 ng/mL (0-6.6)
[2022-05-12 16:37] LABS: Bilirubin Negative (Negative); Blood, Urine Negative (Negative); Clarity Clear (Clear); Glucose, Urine (Dipstick) Normal (Negative); Ketone, Urine Negative (Negative); Leukocyte Negative Leu/uL (Negative); Nitrite Negative (Negative); Protein, Urine (Dipstick) 30 mg/dL (Neg-Trace); RBC/HPF 0-3 HPF (0-3); Specific Gravity, Urine 1.021 (1.002-1.036); Squamous Epithelial None Seen HPF (0-3); Urobilinogen Normal mg/dL (Less than 2); pH, Urine 5.5 (5.0-9.0)
[2022-05-12 16:41] LABS: Bacteria/HPF 1+ HPF (None Seen)
[2022-05-12] MEDS ORDERED: Ondansetron PF 4 MG/2 ML Vial IVP PRN (18:02)
[2022-05-12] MEDS ORDERED: Dextrose 50% Abboject 50 ML SYRINGE SLOW IVP PRN (18:05)
[2022-05-12] MEDS ORDERED: Dextrose 5% in Water 1,000 ML IV PRN (18:05)
[2022-05-12] MEDS ORDERED: Furosemide 20 MG/2 ML VIAL SLOW IVP SCH (18:30)
[2022-05-12 18:49] LABS: Amphetamine Not Detected (NotDetected); Barbiturates Screen Not Detected (NotDetected); Benzodiazepine Screen Not Detected (NotDetected); Cocaine Metabolite Screen Not Detected (NotDetected); Methadone Not Detected (NotDetected); Methamphetamine Not Detected (NotDetected); Opiate Screen Not Detected (NotDetected); Oxycodone Screen Not Detected (NotDetected); Phencyclidine (PCP) Not Detected (NotDetected); THC/Cannabinoid Screen Not Detected (NotDetected); Tricyclic Screen Not Detected (NotDetected)
[2022-05-12 19:17] LABS: Lactic Acid 3.5 mmol/L (0.5-2.2)
[2022-05-12 19:19] LABS: SARS-CoV-2 NAA Rapid Test Not Detected (NotDetected)
[2022-05-12] MEDS ORDERED: Vancomycin Dose by Levels Sliding Scale (Wt <71) FS SCH (23:45)
[2022-05-13] MEDS ORDERED: Cefepime 1 GM VIAL ONE (02:16)
[2022-05-13] MEDS: Cefepime 1 GM in Sodium Chloride 0.9% 100 ML IVPB SCH (02:20)
[2022-05-13] MEDS ORDERED: Furosemide 20 MG/2 ML VIAL SLOW IVP SCH (09:00)
[2022-05-13 09:16] LABS: #Lymphocytes 0.9 thou/uL (1.20-3.40); #Monocytes 0.6 thou/uL (0.11-0.59); #Neutrophils 10.2 thou/uL (1.40-6.50); %Eosinophils 0.1 % (0.0-10.0); %Lymphocytes 7.7 % (21.0-51.0); %Monocytes 4.9 % (0.0-10.0); %Neutrophils 87.3 % (42.0-75.0); Hemoglobin 13.2 g/dL (12.0-16.0); Mean Corpuscular HGB CONC 31.9 g/dL (32.0-36.0); Mean Corpuscular Hemoglobin 30.9 pg (27.0-31.0); Mean Corpuscular Volume 96.7 fl (78.0-98.0); Mean Platelet Volume 7.1 fL (7.4-10.4); Platelet Count 194 10x3/uL (130-400); RBC Distribution Width 15.2 % (11.5-14.5); Red Blood Cell (RBC) Count 4.27 mill/uL (4.20-5.40); White Blood Cell (WBC) Count 11.7 10x3/uL (4.8-10.8)
[2022-05-13 09:27] LABS: Lactic Acid 2.3 mmol/L (0.5-2.2)
[2022-05-13 09:41] LABS: Anion Gap 16 mmol/L (10-20); BUN (Urea Nitrogen) 69 mg/dL (9.8-20.1); Calc. Creatinine Clearance 19 mL/min (70-130); Calcium 9.5 mg/dL (7.8-10.44); Carbon Dioxide 18 mmol/L (23-31); Chloride 103 mmol/L (98-107); Estimated GFR 26; Glucose 289 mg/dL (83-110); Magnesium 1.9 mg/dL (1.6-2.6); Potassium 4.9 mmol/L (3.5-5.1); Sodium 132 mmol/L (136-145)
[2022-05-13 09:45] LABS: Troponin I 0.024 ng/mL (< 0.028)
[2022-05-13] MEDS ORDERED: Levothyroxine Sodium 50 MCG TAB PO SCH (13:00)
[2022-05-13 18:21] LABS: Vancomycin, Random 10.8 ug/mL (See Comment)
[2022-05-13] MEDS: HumaLOG 300 UNITS/3 ML VIAL SC PRN ×2 (18:43→21:56)
[2022-05-13] MEDS ORDERED: Vancomycin HCl 750 MG in Sodium Chloride 0.9% 250 ML 250 ML IVPB SCH (20:00)
[2022-05-13] MEDS: Metoprolol Tartrate 50 MG TAB PO SCH (21:54)
[2022-05-13] MEDS: Insulin Glargine 30 UNITS/0.3 ML VIAL SC SCH (21:55)
[2022-05-14] MEDS: Cefepime 1 GM in Sodium Chloride 0.9% 100 ML IVPB SCH (02:52)
[2022-05-14 04:51] LABS: #Basophils 0.1 thou/uL (0.0-0.2); #Lymphocytes 1.1 thou/uL (1.20-3.40); #Monocytes 0.5 thou/uL (0.11-0.59); #Neutrophils 5.4 thou/uL (1.40-6.50); %Basophils 1.2 % (0.0-1.0); %Eosinophils 0.3 % (0.0-10.0); %Neutrophils 75.5 % (42.0-75.0); Hemoglobin 13.2 g/dL (12.0-16.0); Mean Corpuscular HGB CONC 34.6 g/dL (32.0-36.0); Mean Corpuscular Hemoglobin 35.1 pg (27.0-31.0); Mean Platelet Volume 6.8 fL (7.4-10.4); Platelet Count 129 10x3/uL (130-400); RBC Distribution Width 15.3 % (11.5-14.5); Red Blood Cell (RBC) Count 3.74 mill/uL (4.20-5.40); White Blood Cell (WBC) Count 7.1 10x3/uL (4.8-10.8)
[2022-05-14 05:25] LABS: Glucose 150 mg/dL (83-110)
[2022-05-14 05:28] LABS: Calc. Creatinine Clearance 25 mL/min (70-130); Estimated GFR 37
[2022-05-14 05:29] LABS: BUN (Urea Nitrogen) 59 mg/dL (9.8-20.1)
[2022-05-14 05:30] LABS: Magnesium 1.9 mg/dL (1.6-2.6)
[2022-05-14 05:31] LABS: Anion Gap 12 mmol/L (10-20); Calcium 8.9 mg/dL (7.8-10.44); Carbon Dioxide 16 mmol/L (23-31); Chloride 107 mmol/L (98-107); Potassium 5.1 mmol/L (3.5-5.1); Sodium 130 mmol/L (136-145)
[2022-05-14] MEDS: Levothyroxine Sodium 50 MCG TAB PO SCH (05:57)
[2022-05-14] MEDS: Aspirin 81 mg Enteric Coated Tablet PO SCH (08:42)
[2022-05-14] MEDS: Metoprolol Tartrate 50 MG TAB PO SCH ×2 (08:42→22:29)
[2022-05-14] MEDS: Acetaminophen 325 MG TAB PO PRN (08:43)
[2022-05-14] MEDS: HumaLOG 300 UNITS/3 ML VIAL SC PRN ×2 (13:10→22:31)
[2022-05-14] MEDS: Furosemide 20 MG/2 ML VIAL SLOW IVP SCH ×2 (14:19→15:37)
[2022-05-14] MEDS ORDERED: Furosemide 20 MG/2 ML VIAL SLOW IVP SCH (18:45)
[2022-05-14 20:02] LABS: Vancomycin, Random 13.6 ug/mL (See Comment)
[2022-05-14] MEDS: Insulin Glargine 30 UNITS/0.3 ML VIAL SC SCH (22:31)
[2022-05-15] MEDS: Cefepime 1 GM in Sodium Chloride 0.9% 100 ML IVPB SCH (01:25)
[2022-05-15 04:49] LABS: #Lymphocytes 0.9 thou/uL (1.20-3.40); #Monocytes 0.6 thou/uL (0.11-0.59); #Neutrophils 7.4 thou/uL (1.40-6.50); %Basophils 0.2 % (0.0-1.0); %Eosinophils 0.1 % (0.0-10.0); %Lymphocytes 10.3 % (21.0-51.0); %Monocytes 6.8 % (0.0-10.0); %Neutrophils 82.6 % (42.0-75.0); Hemoglobin 13.2 g/dL (12.0-16.0); Mean Corpuscular HGB CONC 32.9 g/dL (32.0-36.0); Mean Corpuscular Hemoglobin 31.8 pg (27.0-31.0); Mean Corpuscular Volume 96.5 fl (78.0-98.0); Mean Platelet Volume 7.1 fL (7.4-10.4); Platelet Count 148 10x3/uL (130-400); Red Blood Cell (RBC) Count 4.14 mill/uL (4.20-5.40); White Blood Cell (WBC) Count 8.9 10x3/uL (4.8-10.8)
[2022-05-15 04:50] LABS: Anion Gap 11 mmol/L (10-20); BUN (Urea Nitrogen) 54 mg/dL (9.8-20.1); Calc. Creatinine Clearance 25 mL/min (70-130); Calcium 9.8 mg/dL (7.8-10.44); Carbon Dioxide 22 mmol/L (23-31); Chloride 103 mmol/L (98-107); Estimated GFR 38; Glucose 137 mg/dL (83-110); Magnesium 1.8 mg/dL (1.6-2.6); Potassium 4.2 mmol/L (3.5-5.1); Sodium 132 mmol/L (136-145)
[2022-05-15] MEDS: Levothyroxine Sodium 50 MCG TAB PO SCH (06:48)
[2022-05-15] MEDS: Furosemide 40 MG TAB PO SCH (06:48)
[2022-05-15] MEDS: HumaLOG 300 UNITS/3 ML VIAL SC PRN ×3 (06:49→21:31)
[2022-05-15] MEDS: Aspirin 81 mg Enteric Coated Tablet PO SCH (09:07)
[2022-05-15] MEDS: Metoprolol Tartrate 50 MG TAB PO SCH ×2 (09:07→21:31)
[2022-05-15] MEDS: Insulin Glargine 30 UNITS/0.3 ML VIAL SC SCH (21:33)
[2022-05-16] MEDS: Cefepime 1 GM in Sodium Chloride 0.9% 100 ML IVPB SCH (01:15)
[2022-05-16] MEDS: Levothyroxine Sodium 50 MCG TAB PO SCH (05:24)
[2022-05-16] MEDS: Acetaminophen 325 MG TAB PO PRN (05:24)
[2022-05-16] MEDS: Metoprolol Tartrate 50 MG TAB PO SCH ×2 (09:07→20:55)
[2022-05-16] MEDS: Furosemide 40 MG TAB PO SCH (09:07)
[2022-05-16] MEDS: Aspirin 81 mg Enteric Coated Tablet PO SCH (09:08)
[2022-05-16] MEDS: Insulin Glargine 30 UNITS/0.3 ML VIAL SC SCH (20:55)
[2022-05-16] MEDS: HumaLOG 300 UNITS/3 ML VIAL SC PRN (20:56)
[2022-05-17] MEDS: Cefepime 1 GM in Sodium Chloride 0.9% 100 ML IVPB SCH (01:08)
[2022-05-17 05:16] LABS: Anion Gap 14 mmol/L (10-20); BUN (Urea Nitrogen) 41 mg/dL (9.8-20.1); Calc. Creatinine Clearance 31 mL/min (70-130); Calcium 9.1 mg/dL (7.8-10.44); Carbon Dioxide 22 mmol/L (23-31); Chloride 99 mmol/L (98-107); Estimated GFR 49; Glucose 138 mg/dL (83-110); Potassium 3.9 mmol/L (3.5-5.1); Sodium 131 mmol/L (136-145)
[2022-05-17] MEDS: Levothyroxine Sodium 50 MCG TAB PO SCH (05:53)
[2022-05-17] MEDS: Furosemide 40 MG TAB PO SCH (07:37)
[2022-05-17] MEDS: Aspirin 81 mg Enteric Coated Tablet PO SCH (08:45)
[2022-05-17] MEDS: Metoprolol Tartrate 50 MG TAB PO SCH ×2 (08:45→20:43)
[2022-05-17] MEDS: HumaLOG 300 UNITS/3 ML VIAL SC PRN ×3 (10:57→20:43)
[2022-05-17] MEDS: Insulin Glargine 30 UNITS/0.3 ML VIAL SC SCH (20:42)
[2022-05-18] MEDS: Levothyroxine Sodium 50 MCG TAB PO SCH (05:04)
[2022-05-18] MEDS: Furosemide 40 MG TAB PO SCH (10:22)
[2022-05-18] MEDS: Aspirin 81 mg Enteric Coated Tablet PO SCH (10:22)
[2022-05-18] MEDS: Metoprolol Tartrate 50 MG TAB PO SCH ×2 (10:23→20:54)
[2022-05-18] MEDS: HumaLOG 300 UNITS/3 ML VIAL SC PRN ×2 (12:27→20:55)
[2022-05-18] MEDS: Insulin Glargine 30 UNITS/0.3 ML VIAL SC SCH (20:54)
[2022-05-19] MEDS: Acetaminophen 325 MG TAB PO PRN (00:50)
[2022-05-19] MEDS: Levothyroxine Sodium 50 MCG TAB PO SCH (06:04)
[2022-05-19] MEDS: Aspirin 81 mg Enteric Coated Tablet PO SCH (09:05)
[2022-05-19] MEDS: Metoprolol Tartrate 50 MG TAB PO SCH (09:07)
[2022-05-19] MEDS: Furosemide 40 MG TAB PO SCH (09:14)
[2022-05-19] MEDS: HumaLOG 300 UNITS/3 ML VIAL SC PRN (11:30)
[2022-05-19 13:27] VITALS: BP 124/78; TEMP 98.5
== END 2022-05-19 13:25 | DRG 871 ==
LOC: ERS 14:12 → ERHOLD 18:02 → 2NO 05-13 13:21
PROVIDERS: ADMIT Internal Medicine; ATTEND Internal Medicine
DX: A41.9 Sepsis, unspecified organism (principal); G92.8 Other toxic encephalopathy; I50.43 Acute on chronic combined systolic (congestive) and diastolic (congestive) heart failure; I21.A1 Myocardial infarction type 2; I13.0 Hypertensive heart and chronic kidney disease with heart failure and stage 1 through stage 4 chronic kidney disease, or unspecified chronic kidney disease; E87.1 Hypo-osmolality and hyponatremia; I48.20 Chronic atrial fibrillation, unspecified; E87.20 Acidosis, unspecified; Z20.822 Contact with and (suspected) exposure to COVID-19; F41.9 Anxiety disorder, unspecified; M17.9 Osteoarthritis of knee, unspecified; E03.9 Hypothyroidism, unspecified; E11.65 Type 2 diabetes mellitus with hyperglycemia; E11.22 Type 2 diabetes mellitus with diabetic chronic kidney disease; N18.30 Chronic kidney disease, stage 3 unspecified; Z90.49 Acquired absence of other specified parts of digestive tract; Z90.710 Acquired absence of both cervix and uterus; Z95.0 Presence of cardiac pacemaker; Z88.2 Allergy status to sulfonamides; Z88.1 Allergy status to other antibiotic agents; Z88.0 Allergy status to penicillin; Z88.5 Allergy status to narcotic agent; Z79.890 Hormone replacement therapy; Z79.899 Other long term (current) drug therapy; K59.00 Constipation, unspecified
CPT/HCPCS: 36415; 36416; 51701; 70450; 71045; 71046; 80048; 80053; 80202; 80306; 81003; 81015; 82553; 83605; 83735; 83880; 84443; 84484; 85025; 87040; 87086; 87811; 93005; 96374; 96375; J0692; J0696; J1815; J1940; J3370; J3370-JW; J3490; J7050